=== PATIENT | male | born 1935 | race Caucasian/White ===

== ENCOUNTER 2017-12-22 10:02 | Inpatient (IN) | payer MEDICARE ==
[2017-12-22 10:14] VITALS: BMI 27.3
--- NOTE | 2017-12-22 10:46 | C.PDOC ---
History Of Present Illness 82 yo male, hx of htn, hld, presents with leg swelling, worse on left. no fevers , trauma, cp, sob, abd pain. Time Seen by Provider: 12/22/17 10:31 Chief Complaint (Nursing): Lower Extremity Problem/Injury Past Medical History Reviewed: Historical Data, Nursing Documentation, Vital Signs Vital Signs: Last Vital Signs Temp 97.2 F L 12/23/17 15:00 Pulse 76 12/23/17 15:00 Resp 20 12/23/17 15:00 BP 136/68 12/23/17 15:00 Pulse Ox 100 12/23/17 15:00 - Medical History PMH: HTN, Hypercholesterolemia Family History: States: Unknown Family Hx - Social History Hx Alcohol Use: No Hx Substance Use: No Review Of Systems Musculoskeletal: Positive for: Other (leg swelling) Physical Exam - Physical Exam Appears: Well, No Acute Distress Skin: Normal Color, Warm, Dry Eye(s): bilateral: Normal Inspection, PERRL, EOMI Nose: Normal Throat: Normal Neck: Normal Cardiovascular: Rhythm Regular Respiratory: Normal Breath Sounds Gastrointestinal/Abdominal: Normal Exam Back: Normal Inspection Extremity: Normal ROM, Swelling (l> r swelling) ED Course And Treatment - Laboratory Results Result Diagrams: 12/23/17 07:10 12/23/17 07:10 O2 Sat by Pulse Oximetry: 100 Medical Decision Making Medical Decision Making: ro renal faiure, chf, dvt. noted labs, new onset renal failure with elevated bnp. accepted by dr bird. Disposition - Disposition Disposition: HOSPITALIZED Disposition Time: 11:00 Condition: STABLE - Clinical Impression Clinical Impression: Renal failure, CHF (congestive heart failure) Decision To Admit - Pt Status Changed To: Hospital Disposition Of: Inpatient - Admit Certification Admit to Inpatient:: After my assessment, the patient will require hospitalization for at least two midnights. This is because of the severity of symptoms shown, intensity of services needed, and/or the medical risk in this patient being treated as an outpatient. - InPatient: Physician Admission Certification: I certify that this patient requires 2 or more midnights of care for the following reason:: chf acute renal fialure - . Bed Request Type: Telemetry Admitting Physician: Mick Bird Patient Diagnosis: Renal failure, CHF (congestive heart failure)
[2017-12-22 11:07] LABS: BASO # 0.1 K/uL (0.0-0.2); BASO % 1.1 % (0.0-2.0); EOS # 0.8 K/uL (0.0-0.7); HEMOGLOBIN 10.4 g/dL (12.0-18.0); LYMPH % 29.1 % (20.0-40.0); MEAN CORPUSCULAR HEMOGLOBIN 32.6 pg (27.0-31.0); MEAN CORPUSCULAR HGB CONC 35.8 g/dL (33.0-37.0); MEAN PLATELET VOLUME 7.3 fL (7.2-11.7); MONO # 0.5 K/uL (0.0-0.8); MONO % 7.1 % (0.0-10.0); NEUT # 3.6 K/uL (1.8-7.0); NEUT % 51.7 % (50.0-75.0); RBC 3.2 Mil/uL (4.40-5.90); RED CELL DISTRIBUTION WIDTH 13.4 % (11.5-14.5)
--- NOTE | 2017-12-22 11:13 | RAD ---
PROCEDURE: CHEST RADIOGRAPH, 1 VIEW HISTORY: chest pain COMPARISON: Chest radiograph dated 01/24/2013. FINDINGS: LUNGS: Stable chronic prominence of the bilateral interstitial markings. No focal consolidation. PLEURA: Stable elevation of the left hemidiaphragm No pneumothorax or pleural fluid seen. CARDIOVASCULAR: Atherosclerotic aortic calcifications. Cardiomediastinal silhouette stably enlarged. OSSEOUS STRUCTURES: Right supraspinatus calcific tendonitis. Unchanged. VISUALIZED UPPER ABDOMEN: Normal. OTHER FINDINGS: None. IMPRESSION: No active disease.
[2017-12-22 11:16] LABS: INR 1.1; PROTHROMBIN TIME 12.3 SECONDS (9.7-12.2)
[2017-12-22 11:47] LABS: ALB/GLOB RATIO 0.8 (1.0-2.1); ALBUMIN 3.6 g/dL (3.5-5.0); ALT/SGPT < 6 U/L (21-72); AST/SGOT 23 U/L (17-59); B-TYPE NATRIURETIC PEPTIDE 4490 pg/mL (0-900); BLOOD UREA NITROGEN 50 mg/dL (9-20); CALCIUM 8.7 mg/dl (8.6-10.4); GFR AFRICAN-AMERICAN 15; GFR NON-AFRICAN AMERICAN 13
--- NOTE | 2017-12-22 12:07 | VASCLAB ---
PROCEDURE: Lower Extremity Venous Duplex Exam. HISTORY: Pain / Swelling PRIORS: None. TECHNIQUE: Bilateral common femoral, femoral, popliteal and posterior tibial, peroneal and great saphenous veins were evaluated. Flow was assessed with color Doppler, compressibility, assessment of phasic flow and augmentation response. Report prepared by NURA Cash FINDINGS: RIGHT: 1. Common Femoral Vein: 1.1. Compressibility - Fully compressible: Thrombus - None : Flow - Pulsatile: Augmentation -Normal: Reflux - None. 2. Femoral Vein: 2.1. Compressibility - Fully compressible: Thrombus - None : Flow - PulsatileAugmentation -Normal: Reflux - None. 3. Popliteal Vein: 3.1. Compressibility - Fully compressible: Thrombus - None : Flow - PulsatileAugmentation -Normal: Reflux - None. 4. Posterior Tibial Vein: 4.1. Compressibility - Fully compressible: Thrombus - None: Flow - Augmentation -Normal: Reflux - None. 5. Peroneal Vein: 5.1. Compressibility - Fully compressible: Thrombus - None: Flow -Augmentation -Normal: Reflux - None. 6. Great Saphenous Vein: 6.1. Compressibility - Fully compressible: Thrombus - None: Flow - Pulsatile: Augmentation - Normal: Reflux - None. LEFT: 1. Common Femoral Vein: 1.1. Compressibility - Fully compressible: Thrombus - None: Flow - PulsatileAugmentation -Normal: Reflux - None. 2. Femoral Vein: 2.1. Compressibility - Fully compressible: Thrombus - None: Flow - PulsatilePhasic: Augmentation -Normal: Reflux - None. 3. Popliteal Vein: 3.1. Compressibility - Fully compressible: Thrombus - None : Flow - PulsatileAugmentation -Normal: Reflux - None. 4. Posterior Tibial Vein: 4.1. Compressibility - Fully compressible: Thrombus - None: Flow - Augmentation -Normal: Reflux - None. 5. Peroneal Vein: 5.1. Compressibility - Fully compressible: Thrombus - None: Flow - : Augmentation -Normal: Reflux - None. 6. Great Saphenous Vein: 6.1. Compressibility - Fully compressible: Thrombus - None: Flow - Pulsatile: Augmentation - Normal: Reflux - None. OTHER FINDINGS: Right: None significant. Left: None significant. IMPRESSION: Right: No evidence of deep or superficial vein thrombosis of the right lower extremity. Left: No evidence of deep or superficial vein thrombosis of the left lower extremity. Pulsatile venous flow noted bilaterally.
--- NOTE | 2017-12-22 12:41 | CP.PCM.HP ---
<Erlinda Strickland - Last Filed: 12/22/17 17:02> History of Present Illness - History of Present Illness History of Present Illness: CC: lower extremity swelling 82 M with PMHX of HTN, HLD, CKD presents to the ED for bilateral lower extremity swelling. PT is a poor historian because he is forgetful. Pt walked from his home after family suggested he see a doctor for his leg swelling. Pt states that the Lower Extremity Swelling started about 1 week ago. The swelling is generalized from below the knee to toes. Pt states that the left lower extremity is worse than the right. He states that there is no associated pain in the extremities. Pt last saw his PMD this past November and it was found that his Creatinine was elevated. He has a first time appointment with a visual educator next Sunday 12/31. He denies fever, chills, DONNELLY, chest pain, palpitations, SOB, cough, abdominal pain, nausea, vomiting, diarrhea, and leg pain. Spoke to niece on the phone (Niece: Trudy [phone]), who provided additional information. Niece said that her Uncle is very forgetful for the past year, but that family members call him to make sure he takes his meds. Besides the lower extremity edema, niece says he has had no other complaints and has not been sick recently. Code Status: DNI health care proxy: Tania Mccord ([phone]) Primary Care Doctor: Dr. Nuno PMHX: HTN, HLD, CKD PSH: Cervical Spine Surgery 1999 with [employer]? FAMILY HX: Mother , no known significant past medical history; Father , no known significant past medical history ALLERGIES: NKDA MEDICATIONS: Norvasc 5mg PO QD, Simvastatin 10mg PO QD SOCIAL: Denies tobacco, ETOH, and illicit drug use, lives in a senior home, refuses to have a visiting nurse, completes ADLs without help Present on Admission - Present on Admission Any Indicators Present on Admission: No History of DVT/PE: No History of Uncontrolled Diabetes: No Urinary Catheter: No Decubitus Ulcer Present: No Review of Systems - Constitutional Constitutional: absent: Anorexia, Chills, Fever - EENT Eyes: absent: Blurred Vision, Change in Vision - Cardiovascular Cardiovascular: Leg Edema, Pedal Edema. absent: Chest Pain, Dyspnea, Orthopnea , Palpitations, Paroxysmal Nocturnal Dyspnea - Respiratory Respiratory: absent: Cough, Dyspnea, Dyspnea on Exertion - Gastrointestinal Gastrointestinal: absent: Abdominal Pain, Constipation, Diarrhea, Nausea, Vomiting - Genitourinary Genitourinary: absent: Difficulty Urinating, Dysuria Additional comments: voiding small amounts, no increase in frequency - Musculoskeletal Musculoskeletal: absent: Myalgias, Numbness, Tingling - Integumentary Integumentary: absent: Rash - Neurological Neurological: absent: Dizziness - Psychiatric Psychiatric: Memory Loss - Endocrine Endocrine: absent: Fatigue, Palpitations - Hematologic/Lymphatic Hematologic: absent: Easy Bleeding, Easy Bruising Past Patient History - Past Social History Smoking Status: Never Smoked - CARDIAC Hx Hypercholesterolemia: Yes Hx Hypertension: Yes - RENAL Other/Comment: PER NIECE "KIDNEY DISEASE" - PSYCHIATRIC Hx Substance Use: No - SURGICAL HISTORY Hx Surgeries: Yes - ANESTHESIA Hx Anesthesia: Yes Hx Anesthesia Reactions: No Meds Allergies/Adverse Reactions: Allergies Allergy/AdvReac Type Severity Reaction Status Date / Time No Known Allergies Allergy Verified 12/22/17 10:13 Physical Exam - Constitutional Appears: Non-toxic, No Acute Distress - Head Exam Head Exam: ATRAUMATIC, NORMAL INSPECTION, NORMOCEPHALIC - Eye Exam Eye Exam: EOMI, Normal appearance Pupil Exam: NORMAL ACCOMODATION - ENT Exam ENT Exam: Mucous Membranes Moist - Respiratory Exam Respiratory Exam: Clear to Auscultation Bilateral, NORMAL BREATHING PATTERN. absent: Rales, Rhonchi, Wheezes, Respiratory Distress - Cardiovascular Exam Cardiovascular Exam: REGULAR RHYTHM, RRR, +S1, +S2 - GI/Abdominal Exam GI & Abdominal Exam: Normal Bowel Sounds, Soft. absent: Tenderness - Extremities Exam Extremities exam: Positive for: normal capillary refill, pedal edema, pedal pulses present. Negative for: tenderness Additional comments: pitting edema b/l L wore than R - Back Exam Back exam: NORMAL INSPECTION - Neurological Exam Neurological exam: Alert, CN II-XII Intact, Oriented x3 - Psychiatric Exam Psychiatric exam: Normal Affect, Normal Mood - Skin Skin Exam: Intact, Normal Color, Warm Additional comments: LE edema Results - Vital Signs Recent Vital Signs: Last Vital Signs Temp 97.7 F 12/22/17 10:16 Pulse 87 12/22/17 10:16 Resp 20 12/22/17 10:16 BP 152/72 H 12/22/17 12:14 Pulse Ox 100 12/22/17 10:46 - Labs Result Diagrams: 12/22/17 11:04 12/22/17 11:04 Labs: Laboratory Results - last 24 hr 12/22/17 12/22/17 12/22/17 11:04 11:04 11:04 WBC 7.0 RBC 3.20 L Hgb 10.4 L D Hct 29.1 L MCV 91.0 D MCH 32.6 H MCHC 35.8 RDW 13.4 Plt Count 247 MPV 7.3 Neut % (Auto) 51.7 Lymph % (Auto) 29.1 Cassia % (Auto) 7.1 Eos % (Auto) 11.0 H Baso % (Auto) 1.1 Neut # (Auto) 3.6 Lymph # (Auto) 2.0 Cassia # (Auto) 0.5 Eos # (Auto) 0.8 H Baso # (Auto) 0.1 PT 12.3 H INR 1.1 APTT 36 H Sodium 140 Potassium 3.5 L Chloride 99 Carbon Dioxide 26 Anion Gap 19 BUN 50 H Creatinine 4.5 H Est GFR ( Amer) 15 Est GFR (Non-Af Amer) 13 Random Glucose 123 H Calcium 8.7 Total Bilirubin 0.6 AST 23 ALT < 6 L D Alkaline Phosphatase 97 Troponin I 0.0690 NT-Pro-B Natriuret Pep 4490 H Total Protein 7.9 Albumin 3.6 Globulin 4.3 H Albumin/Globulin Ratio 0.8 L Assessment & Plan - Assessment and Plan (Free Text) Assessment: BUCKY on CKD creatinine elevated in November at pmd's office (Dr. Caceres) Dr. Morin consulted, help appreciated renal u/s ordered CT abd/pelvis without contrast ordered f/u UA, urine culture, urine osmolality, protein, sodium LE Edema probably 2/2 ckd Cxray: no active disease LE venous dopplers negative pulses 2+ HTN increase home med Norvasc to 10mg po daily start Lopressor 12.5mg po bid f/u TSH, free T4 HLD continue home med Crestor 2.5 po HS f/u lipid panel Prophylaxis DVT: Heparin 5000 u sc q8h Pepcid 20mg po daily <Walter Alonso H - Last Filed: 12/22/17 17:20> Results - Vital Signs Recent Vital Signs: Last Vital Signs Temp 98.7 F 12/22/17 15:07 Pulse 92 H 12/22/17 16:44 Resp 16 12/22/17 15:07 BP 168/83 H 12/22/17 15:07 Pulse Ox 100 12/22/17 15:13 - Labs Result Diagrams: 12/22/17 11:04 12/22/17 11:04 Labs: Laboratory Results - last 24 hr 12/22/17 12/22/17 12/22/17 11:04 11:04 11:04 WBC 7.0 RBC 3.20 L Hgb 10.4 L D Hct 29.1 L MCV 91.0 D MCH 32.6 H MCHC 35.8 RDW 13.4 Plt Count 247 MPV 7.3 Neut % (Auto) 51.7 Lymph % (Auto) 29.1 Cassia % (Auto) 7.1 Eos % (Auto) 11.0 H Baso % (Auto) 1.1 Neut # (Auto) 3.6 Lymph # (Auto) 2.0 Cassia # (Auto) 0.5 Eos # (Auto) 0.8 H Baso # (Auto) 0.1 PT 12.3 H INR 1.1 APTT 36 H Sodium 140 Potassium 3.5 L Chloride 99 Carbon Dioxide 26 Anion Gap 19 BUN 50 H Creatinine 4.5 H Est GFR ( Amer) 15 Est GFR (Non-Af Amer) 13 Random Glucose 123 H Calcium 8.7 Total Bilirubin 0.6 AST 23 ALT < 6 L D Alkaline Phosphatase 97 Troponin I 0.0690 NT-Pro-B Natriuret Pep 4490 H Total Protein 7.9 Albumin 3.6 Globulin 4.3 H Albumin/Globulin Ratio 0.8 L Urine Color Urine Clarity Urine pH Ur Specific [place] Urine Protein Urine Glucose (UA) Urine Ketones Urine Blood Urine Nitrate Urine Bilirubin Urine Urobilinogen Ur Leukocyte Esterase Urine WBC (Auto) Urine RBC (Auto) Ur Squamous Epith Cells Urine Osmolality U Random Total Protein Ur Random Sodium 12/22/17 12/22/17 14:36 14:36 WBC RBC Hgb Hct MCV MCH MCHC RDW Plt Count MPV Neut % (Auto) Lymph % (Auto) Cassia % (Auto) Eos % (Auto) Baso % (Auto) Neut # (Auto) Lymph # (Auto) Cassia # (Auto) Eos # (Auto) Baso # (Auto) PT INR APTT Sodium Potassium Chloride Carbon Dioxide Anion Gap BUN Creatinine Est GFR ( Amer) Est GFR (Non-Af Amer) Random Glucose Calcium Total Bilirubin AST ALT Alkaline Phosphatase Troponin I NT-Pro-B Natriuret Pep Total Protein Albumin Globulin Albumin/Globulin Ratio Urine Color Straw Urine Clarity Clear Urine pH 7.0 Ur Specific [place] 1.008 Urine Protein 2+ H Urine Glucose (UA) 1+ H Urine Ketones Negative Urine Blood 1+ H Urine Nitrate Negative Urine Bilirubin Negative Urine Urobilinogen Normal Ur Leukocyte Esterase Neg Urine WBC (Auto) 1 Urine RBC (Auto) 2 Ur Squamous Epith Cells < 1 Urine Osmolality 301 U Random Total Protein 368.0 H Ur Random Sodium 101 Attending/Attestation - Attestation I have personally seen and examined this patient.: Yes I have fully participated in the care of the patient.: Yes I have reviewed all pertinent clinical information: Yes Notes (Text): 12/22/17 17:20 This is a 82-year-old male who came in she bilateral lower extremity swelling. He has been noted to have elevated creatinine. According to the family members. His primary care physicians have wanted him to follow-up with nephrology was but so far he has not been able to do so. He explains to us that he's been producing less urine than previous. His lab work showed a creatinine of 4.5. His potassium and bicarbonate remained stable for the time being. He denies having any pain or discomfort at this time we saw him, probably this CKD is from long-standing hypertension nevertheless work and get CT and also U/ S and urine studies. The patient would need a nephrology evaluation as well Thank you very much, Walter Alonso
[2017-12-22 14:44] LABS: SQUAMOUS EPITHIAL < 1 /hpf (0-5); URINE BILIRUBIN NEGATIVE (NEGATIVE); URINE BLOOD 1+ (NEGATIVE); URINE CLARITY Clear (Clear); URINE COLOR Straw (YELLOW); URINE GLUCOSE (UA) 1+ mg/dL (Normal); URINE LEUKOCYTE ESTERASE NEG Leu/uL (Negative); URINE PROTEIN 2+ mg/dL (NEGATIVE); URINE UROBILINOGEN NORMAL mg/dL (0.2-1.0)
--- NOTE | 2017-12-22 14:59 | US ---
Renal ultrasound History: Acute renal insufficiency. Comparison: None available. Technique: Real-time sonography was performed through the kidneys. Findings: Right kidney: 7.7 x 4.2 x 5.1 centimeters. Increased echogenicity of the renal parenchymal cortex suggestive for medical renal disease. Midpole hypoechoic cyst measuring 2.6 x 2.0 x 2.1 centimeters. No calculi or hydronephrosis. Left kidney: 6.1 x 3.4 x 3.4 centimeters. Increased echogenicity of the renal parenchymal cortex suggestive for medical renal disease. Upper pole hypoechoic cyst measuring 1.0 x 0.8 x 1.0 centimeters. No calculi or hydronephrosis. Visualized aorta is preserved. Visualized urinary bladder is preserved. Impression: 1. Increased echogenicity of the bilateral renal parenchymal cortices suggestive for medical renal disease. 2. Diminutive appearance of the bilateral kidneys which may represent underlying atrophy. Clinical correlation. 3. Bilateral renal cysts.
--- NOTE | 2017-12-22 16:26 | CT ---
PROCEDURE: CT Abdomen and Pelvis without intravenous contrast HISTORY: BUCKY on CKD COMPARISON: None. TECHNIQUE: Contiguous images were obtained from the domes of the diaphragms to the upper thighs without the administration of intravenous contrast. Oral contrast was not administered. Radiation dose: Total exam DLP = 224.7 mGy-cm. This CT exam was performed using one or more of the following dose reduction techniques: Automated exposure control, adjustment of the mA and/or kV according to patient size, and/or use of iterative reconstruction technique. FINDINGS: LOWER THORAX: Left lower lobe atelectasis/scarring. Cardiomegaly. Coronary arterial and valvular calcifications. LIVER: Unremarkable. No gross lesion or ductal dilatation. GALLBLADDER AND BILE DUCTS: Unremarkable. PANCREAS: Unremarkable. No gross lesion or ductal dilatation. SPLEEN: Unremarkable. ADRENALS: Unremarkable. No mass. KIDNEYS AND URETERS: 2.1 cm right interpolar cyst. Atrophic left kidney. 0.9 cm left upper pole cyst. No hydronephrosis. No solid mass. VASCULATURE: Unremarkable. No aortic aneurysm. BOWEL: Colonic diverticulosis. Interposition of colon anterior to the liver. No obstruction. No gross mural thickening. APPENDIX: Unremarkable. Normal appendix. PERITONEUM: Prior left inguinal hernia repair. No free fluid. No free air. LYMPH NODES: Unremarkable. No enlarged lymph nodes. BLADDER: Unremarkable. REPRODUCTIVE: Prostatomegaly. BONES: No acute fracture. OTHER FINDINGS: Right gluteal soft tissue calcifications. IMPRESSION: No urolithiasis or evidence of recently passed genitourinary calculus. No acute abdominal pelvic pathology. Chronic atrophy of the left kidney. Bilateral renal cysts. Prostatomegaly. Additional findings as above.
[2017-12-22] MEDS: Rosuvastatin Calcium 2.5 mg Tab PO SCH (21:07)
[2017-12-23 07:22] LABS: BASO # 0.1 K/uL (0.0-0.2); BASO % 1.1 % (0.0-2.0); EOS # 1.5 K/uL (0.0-0.7); EOS % 19.1 % (0.0-4.0); HEMOGLOBIN 8.7 g/dL (12.0-18.0); LYMPH # 3.4 K/uL (1.0-4.3); LYMPH % 41.8 % (20.0-40.0); MEAN CELL VOLUME 91.1 fL (80.0-94.0); MEAN CORPUSCULAR HEMOGLOBIN 32.8 pg (27.0-31.0); MONO # 0.5 K/uL (0.0-0.8); MONO % 6.1 % (0.0-10.0); NEUT # 2.6 K/uL (1.8-7.0); NEUT % 31.9 % (50.0-75.0); RBC 2.65 Mil/uL (4.40-5.90); RED CELL DISTRIBUTION WIDTH 13.3 % (11.5-14.5)
[2017-12-23 07:40] LABS: ALB/GLOB RATIO 0.8 (1.0-2.1); ALBUMIN 2.9 g/dL (3.5-5.0); CALCIUM 8.4 mg/dl (8.6-10.4)
--- NOTE | 2017-12-23 09:04 | CP.PCM.CON ---
History of Present Illness - History of Present Illness History of Present Illness: Pt is a poor historian. Most history from chart and primary team. 82 M with PMHX of HTN, HLD, CKD presents to the ED for bilateral lower extremity swelling. PT is a poor historian because he is forgetful. Pt walked from his home after family suggested he see a doctor for his leg swelling. Pt states that the Lower Extremity Swelling started about 1 week ago. The swelling is generalized from below the knee to toes. Pt states that the left lower extremity is worse than the right. He states that there is no associated pain in the extremities. Pt last saw his PMD this past November and it was found that his Creatinine was elevated. He has a first time appointment with a contract post office clerk next Sunday 12/31. He denies fever, chills, DONNELLY, chest pain, palpitations, SOB, cough, abdominal pain, nausea, vomiting, diarrhea, and leg pain. creatinine 5.1mg/dl today, pt making adequate urine. PMHX: HTN, HLD, CKD PSH: Cervical Spine Surgery 1999 with [employer]? FAMILY HX: Mother , no known significant past medical history; Father , no known significant past medical history ALLERGIES: NKDA MEDICATIONS: Norvasc 5mg PO QD, Simvastatin 10mg PO QD SOCIAL: Denies tobacco, ETOH, and illicit drug use, lives in a senior home, refuses to have a visiting nurse, completes ADLs without help Review of Systems - Constitutional Constitutional: As Per HPI - EENT Eyes: As Per HPI Nose/Mouth/Throat: As Per HPI - Cardiovascular Cardiovascular: As Per HPI - Respiratory Respiratory: As Per HPI - Gastrointestinal Gastrointestinal: As Per HPI - Genitourinary Genitourinary: As Per HPI - Musculoskeletal Musculoskeletal: As Per HPI - Neurological Neurological: As Per HPI - Endocrine Endocrine: As Per HPI - Hematologic/Lymphatic Hematologic: As Per HPI Past Patient History - Past Medical History & Family History Past Medical History?: Yes - Past Social History Smoking Status: Never Smoked - CARDIAC Hx Hypercholesterolemia: Yes Hx Hypertension: Yes - PULMONARY Hx Respiratory Disorders: No - NEUROLOGICAL Hx Neurological Disorder: No - HEENT Hx HEENT Problems: No - RENAL Other/Comment: PER NIECE "KIDNEY DISEASE" - ENDOCRINE/METABOLIC Hx Endocrine Disorders: No - HEMATOLOGICAL/ONCOLOGICAL Hx Blood Disorders: No - INTEGUMENTARY Hx Dermatological Problems: No - MUSCULOSKELETAL/RHEUMATOLOGICAL Hx Musculoskeletal Disorders: No Hx Falls: No - GASTROINTESTINAL Hx Gastrointestinal Disorders: No - GENITOURINARY/GYNECOLOGICAL Hx Genitourinary Disorders: No - PSYCHIATRIC Hx Substance Use: No - SURGICAL HISTORY Hx Surgeries: Yes - ANESTHESIA Hx Anesthesia: Yes Hx Anesthesia Reactions: No Meds Allergies/Adverse Reactions: Allergies Allergy/AdvReac Type Severity Reaction Status Date / Time No Known Allergies Allergy Verified 12/22/17 10:13 - Medications Medications: Current Medications Amlodipine Besylate (Norvasc) 10 mg PO DAILY [facility] Famotidine (Pepcid) 20 mg PO DAILY [facility] Last Admin: 12/22/17 15:07 Dose: 20 mg Heparin Sodium (Porcine) (Heparin) 5,000 units SC Q8 [facility] Last Admin: 12/23/17 05:35 Dose: 5,000 units Metoprolol Tartrate (Lopressor) 12.5 mg PO BID [facility] Last Admin: 12/22/17 18:25 Dose: 12.5 mg Rosuvastatin Calcium (Crestor) 2.5 mg PO HS [facility] Last Admin: 12/22/17 21:07 Dose: 2.5 mg Physical Exam - Constitutional Appears: Non-toxic, No Acute Distress - Head Exam Head Exam: NORMAL INSPECTION, NORMOCEPHALIC - Eye Exam Eye Exam: Normal appearance Pupil Exam: PERRL - ENT Exam ENT Exam: Mucous Membranes Moist, Normal Exam - Neck Exam Neck exam: Positive for: Normal Inspection - Respiratory Exam Respiratory Exam: Clear to Auscultation Bilateral, NORMAL BREATHING PATTERN - Cardiovascular Exam Cardiovascular Exam: REGULAR RHYTHM, RRR - GI/Abdominal Exam GI & Abdominal Exam: Normal Bowel Sounds, Soft - Extremities Exam Extremities exam: Positive for: normal inspection (LLE edema 2+) - Back Exam Back exam: NORMAL INSPECTION - Neurological Exam Neurological exam: Alert, Oriented x3 - Psychiatric Exam Psychiatric exam: Normal Affect, Normal Mood - Skin Skin Exam: Intact, Warm Results - Vital Signs Recent Vital Signs: Last Vital Signs Temp 98.0 F 12/23/17 08:14 Pulse 61 12/23/17 08:42 Resp 20 12/23/17 08:14 BP 114/60 12/23/17 08:14 Pulse Ox 94 L 12/23/17 08:14 - Labs Result Diagrams: 12/23/17 07:10 12/23/17 07:10 Labs: Laboratory Results - last 24 hr 12/22/17 12/22/17 12/22/17 11:04 11:04 11:04 WBC 7.0 RBC 3.20 L Hgb 10.4 L D Hct 29.1 L MCV 91.0 D MCH 32.6 H MCHC 35.8 RDW 13.4 Plt Count 247 MPV 7.3 Neut % (Auto) 51.7 Lymph % (Auto) 29.1 [place] % (Auto) 7.1 Eos % (Auto) 11.0 H Baso % (Auto) 1.1 Neut # (Auto) 3.6 Lymph # (Auto) 2.0 [place] # (Auto) 0.5 Eos # (Auto) 0.8 H Baso # (Auto) 0.1 PT 12.3 H INR 1.1 APTT 36 H Sodium 140 Potassium 3.5 L Chloride 99 Carbon Dioxide 26 Anion Gap 19 BUN 50 H Creatinine 4.5 H Est GFR ( Amer) 15 Est GFR (Non-Af Amer) 13 Random Glucose 123 H Hemoglobin A1c Calcium 8.7 Phosphorus Magnesium Total Bilirubin 0.6 AST 23 ALT < 6 L D Alkaline Phosphatase 97 Troponin I 0.0690 NT-Pro-B Natriuret Pep 4490 H Total Protein 7.9 Albumin 3.6 Globulin 4.3 H Albumin/Globulin Ratio 0.8 L Triglycerides Cholesterol LDL Cholesterol Direct HDL Cholesterol Free T4 TSH 3rd Generation Urine Color Urine Clarity Urine pH Ur Specific [place] Urine Protein Urine Glucose (UA) Urine Ketones Urine Blood Urine Nitrate Urine Bilirubin Urine Urobilinogen Ur Leukocyte Esterase Urine WBC (Auto) Urine RBC (Auto) Ur Squamous Epith Cells Urine Osmolality U Random Total Protein Ur Random Sodium 12/22/17 12/22/17 12/23/17 14:36 14:36 07:10 WBC 8.0 RBC 2.65 L Hgb 8.7 L Hct 24.2 L MCV 91.1 MCH 32.8 H MCHC 36.0 RDW 13.3 Plt Count 203 MPV 8.0 Neut % (Auto) 31.9 L Lymph % (Auto) 41.8 H [place] % (Auto) 6.1 Eos % (Auto) 19.1 H Baso % (Auto) 1.1 Neut # (Auto) 2.6 Lymph # (Auto) 3.4 [place] # (Auto) 0.5 Eos # (Auto) 1.5 H Baso # (Auto) 0.1 PT INR APTT Sodium Potassium Chloride Carbon Dioxide Anion Gap BUN Creatinine Est GFR ( Amer) Est GFR (Non-Af Amer) Random Glucose Hemoglobin A1c Calcium Phosphorus Magnesium Total Bilirubin AST ALT Alkaline Phosphatase Troponin I NT-Pro-B Natriuret Pep Total Protein Albumin Globulin Albumin/Globulin Ratio Triglycerides Cholesterol LDL Cholesterol Direct HDL Cholesterol Free T4 TSH 3rd Generation Urine Color Straw Urine Clarity Clear Urine pH 7.0 Ur Specific [place] 1.008 Urine Protein 2+ H Urine Glucose (UA) 1+ H Urine Ketones Negative Urine Blood 1+ H Urine Nitrate Negative Urine Bilirubin Negative Urine Urobilinogen Normal Ur Leukocyte Esterase Neg Urine WBC (Auto) 1 Urine RBC (Auto) 2 Ur Squamous Epith Cells < 1 Urine Osmolality 301 U Random Total Protein 368.0 H Ur Random Sodium 101 12/23/17 12/23/17 12/23/17 07:10 07:10 07:10 WBC RBC Hgb Hct MCV MCH MCHC RDW Plt Count MPV Neut % (Auto) Lymph % (Auto) [place] % (Auto) Eos % (Auto) Baso % (Auto) Neut # (Auto) Lymph # (Auto) [place] # (Auto) Eos # (Auto) Baso # (Auto) PT INR APTT Sodium 138 Potassium 3.4 L Chloride 100 Carbon Dioxide 26 Anion Gap 16 BUN 54 H Creatinine 5.1 H Est GFR ( Amer) 13 Est GFR (Non-Af Amer) 11 Random Glucose 80 Hemoglobin A1c 6.3 Calcium 8.4 L Phosphorus 4.6 H Magnesium 2.2 Total Bilirubin 0.5 AST 20 ALT 8 L D Alkaline Phosphatase 79 Troponin I NT-Pro-B Natriuret Pep Total Protein 6.6 Albumin 2.9 L Globulin 3.6 Albumin/Globulin Ratio 0.8 L Triglycerides 134 Cholesterol 119 LDL Cholesterol Direct 57 HDL Cholesterol 27 L Free T4 1.24 TSH 3rd Generation 0.28 L Urine Color Urine Clarity Urine pH Ur Specific [place] Urine Protein Urine Glucose (UA) Urine Ketones Urine Blood Urine Nitrate Urine Bilirubin Urine Urobilinogen Ur Leukocyte Esterase Urine WBC (Auto) Urine RBC (Auto) Ur Squamous Epith Cells Urine Osmolality U Random Total Protein Ur Random Sodium Assessment & Plan (1) Chronic kidney disease Status: Acute (2) Anemia Status: Acute (3) Hypertension Status: Acute (4) Edema Status: Acute (5) CHF (congestive heart failure) Status: Acute - Assessment and Plan (Free Text) Assessment: Likely advanced ckd based on renal imaging. possibly component of cardiorenal syndrome. echo pending check hepatitis panel, hiv, spep quantify proteinuria creatinine clearance check iron stores, consider sumaya check pth phos may need HOSPICE BEREAVEMENT COORDINATOR. Attempted calling niece over phone, no answer. discussed w/ primary team
--- NOTE | 2017-12-23 10:28 | CP.PCM.PN ---
<JadielgladisErlinda Oleg - Last Filed: 12/23/17 13:27> Subjective - Date & Time of Evaluation Date of Evaluation: 12/23/17 Time of Evaluation: 07:00 - Subjective Subjective: PGY1- Medicine Note Patient seen and examined at bedside and in no acute distress. Patient says his legs are still swollen. Patient denies any headache, shortness of breath, chest pain, palpitations, nausea, vomiting, constipation, or diarrhea. Objective - Vital Signs/Intake and Output Vital Signs (last 24 hours): Temp Pulse Resp BP Pulse Ox 98.0 F 61 20 114/60 94 L 12/23/17 08:14 12/23/17 08:42 12/23/17 08:14 12/23/17 08:14 12/23/17 08:14 - Medications Medications: Current Medications Amlodipine Besylate (Norvasc) 10 mg PO DAILY [facility] Famotidine (Pepcid) 20 mg PO DAILY [facility] Last Admin: 12/22/17 15:07 Dose: 20 mg Heparin Sodium (Porcine) (Heparin) 5,000 units SC Q8 [facility] Last Admin: 12/23/17 05:35 Dose: 5,000 units Metoprolol Tartrate (Lopressor) 12.5 mg PO BID [facility] Last Admin: 12/22/17 18:25 Dose: 12.5 mg Rosuvastatin Calcium (Crestor) 2.5 mg PO HS [facility] Last Admin: 12/22/17 21:07 Dose: 2.5 mg - Labs Labs: 12/23/17 07:10 12/23/17 07:10 PT 12.3 SECONDS (9.7-12.2) H 12/22/17 11:04 INR 1.1 12/22/17 11:04 APTT 36 SECONDS (21-34) H 12/22/17 11:04 - Additional Findings Additional findings: - Constitutional Appears: Non-toxic, No Acute Distress - Head Exam Head Exam: ATRAUMATIC, NORMAL INSPECTION, NORMOCEPHALIC - Eye Exam Eye Exam: EOMI, Normal appearance Pupil Exam: NORMAL ACCOMODATION - ENT Exam ENT Exam: Mucous Membranes Moist - Respiratory Exam Respiratory Exam: Clear to Auscultation Bilateral, NORMAL BREATHING PATTERN. absent: Rales, Rhonchi, Wheezes, Respiratory Distress - Cardiovascular Exam Cardiovascular Exam: REGULAR RHYTHM, RRR, +S1, +S2 - GI/Abdominal Exam GI & Abdominal Exam: Normal Bowel Sounds, Soft. absent: Tenderness - Extremities Exam Extremities exam: Positive for: normal capillary refill, pedal edema, pedal pulses present. Negative for: tenderness Additional comments: pitting edema b/l L wore than R - Back Exam Back exam: NORMAL INSPECTION - Neurological Exam Neurological exam: Alert, CN II-XII Intact, Oriented x3 - Psychiatric Exam Psychiatric exam: Normal Affect, Normal Mood - Skin Skin Exam: Intact, Normal Color, Warm Additional comments: LE edema Assessment and Plan - Assessment and Plan (Free Text) Assessment: BUCKY on CKD creatinine elevated in November at pmd's office (Dr. Caceres) Dr. Morin consulted, help appreciated renal u/s: 1. increased echogenicity of the b/l renal parenchymal cortices suggestive for medical renal disease 2. diminutive appearance of the bilateral kidneys which may represent underlying atrophy. 3. bilateral renal cysts CT abd/pelvis without contrast: no urolithiasis or evidence of recently passed genitourinary calculus. No acute abdominal pelvic pathology. Chronic atrophy of the left kidney. b/l renal cysts. prostatomegaly. UA: 2+ protein, 1+ gluc, 1+ blood urine osm: 301, protein 368, sodium [address] Ruiz f/u: creatinine clearance, total protein, % iron sat, ferritin, hep panel, HIV, SPEP, PTH LE Edema probably 2/2 ckd Cxray: no active disease LE venous dopplers negative pulses 2+ HTN continue home med Norvasc to 5mg po daily Lopressor 12.5mg po bid TSH: .28, Free T4: 1.24 HLD continue home med Crestor 2.5 po HS lipid panel: triglycerides 134, cholesterol 119, LDL 57, HDL 27 Prophylaxis DVT: Heparin 5000 u sc q8h Pepcid 20mg po daily <CelestePeter H - Last Filed: 12/23/17 14:53> Objective - Vital Signs/Intake and Output Vital Signs (last 24 hours): Temp Pulse Resp BP Pulse Ox 98.0 F 61 20 114/60 94 L 12/23/17 08:14 12/23/17 08:42 12/23/17 08:14 12/23/17 08:14 12/23/17 08:14 - Medications Medications: Current Medications Amlodipine Besylate (Norvasc) 5 mg PO DAILY [facility] Famotidine (Pepcid) 20 mg PO DAILY [facility] Last Admin: 12/23/17 10:46 Dose: 20 mg Heparin Sodium (Porcine) (Heparin) 5,000 units SC Q8 [facility] Last Admin: 12/23/17 13:31 Dose: 5,000 units Metoprolol Tartrate (Lopressor) 12.5 mg PO BID [facility] Last Admin: 12/23/17 10:45 Dose: 12.5 mg Rosuvastatin Calcium (Crestor) 2.5 mg PO HS [facility] Last Admin: 12/22/17 21:07 Dose: 2.5 mg - Labs Labs: 12/23/17 07:10 12/23/17 07:10 PT 12.3 SECONDS (9.7-12.2) H 12/22/17 11:04 INR 1.1 12/22/17 11:04 APTT 36 SECONDS (21-34) H 12/22/17 11:04 Attending/Attestation - Attestation I have personally seen and examined this patient.: Yes I have fully participated in the care of the patient.: Yes I have reviewed all pertinent clinical information, including history, physical exam and plan: Yes Notes (Text): Medical attending: Patient was seen and examined by me, agree with the above note by the special forces medical sergeant. Patient was not in any acute distress when we saw him. He was able to walk in the room and into the hallway. A 24 hr urine collection is underway. The patient stated he was able to urinate fine when we saw him Spoke also with the patient's primary phyisician who exaplins that the most recent lab work on November 14 showed a creatine of 3.5 at that time thank you Walter Alonso
--- NOTE | 2017-12-23 14:33 | CARD ---
APPROVED REPORT EXAM: Two-dimensional and M-mode echocardiogram with Doppler and color Doppler. Other Information Quality : GoodRhythm : INDICATION Congestive Heart Failure RISK FACTORS Hypertension Hyperlipidemia 2D DIMENSIONS IVSd0.8 (0.7-1.1cm)LVDd4.5 (3.9-5.9cm) PWd0.8 (0.7-1.1cm)LVDs3.5 (2.5-4.0cm) FS (%) 23.1 %LVEF (%)55.0 (>50%) M-Mode DIMENSIONS RVDd1.30 (2.1-3.2cm)Left Atrium (MM)3.25 (2.5-4.0cm) IVSd0.93 (0.7-1.1cm)Aortic Root2.97 (2.2-3.7cm) LVDd4.72 (4.0-5.6cm)Aortic Cusp Exc.1.90 (1.5-2.0cm) PWd0.74 (0.7-1.1cm)FS (%) 33 % LVDs3.17 (2.0-3.8cm)LVEF (%)61 (>50%) Aortic Valve AI P 1/2 [id number] Mitral Valve MV E Xvewmpqf302.9cm/sMV A [place]45.7cm/sE/A ratio1.2 TDI E/Lateral E'0.0E/Medial E'0.0 Tricuspid Valve TR Peak [id number]/sTR Peak [id number] LEFT VENTRICLE The left ventricle is normal size. There is borderline concentric left ventricular hypertrophy. The left ventricular function is normal. The left ventricular ejection fraction is within the normal range. There is normal LV segmental wall motion. Transmitral Doppler flow pattern is Grade II-pseudonormal filling dynamics. RIGHT VENTRICLE The right ventricle is normal size. There is normal right ventricular wall thickness. The right ventricular systolic function is normal. ATRIA The left atrium size is normal. The right atrium size is normal. AORTIC VALVE The aortic valve is mildly thickened. There is mild aortic regurgitation. There is no aortic valvular stenosis. MITRAL VALVE The mitral valve is mildly thickened. There is no mitral valve stenosis. Mitral regurgitation is trace. TRICUSPID VALVE There is mild tricuspid regurgitation. There is mild pulmonary hypertension. GREAT VESSELS The aortic root is normal in size. The IVC collapses <50% with inspiration. <Conclusion> The left ventricle is normal size. There is borderline concentric left ventricular hypertrophy. The left ventricular function is normal. The left ventricular ejection fraction is within the normal range. There is normal LV segmental wall motion. Transmitral Doppler flow pattern is Grade II-pseudonormal filling dynamics. There is mild aortic regurgitation. There is mild tricuspid regurgitation. There is mild pulmonary hypertension.
--- NOTE | 2017-12-23 15:09 | CARD ---
APPROVED REPORT EKG Measurement Heart [id number] [place] [id number] <Conclusion> Normal sinus rhythm Prolonged QT Abnormal ECG
[2017-12-23] MEDS: Rosuvastatin Calcium 2.5 mg Tab PO SCH (21:43)
[2017-12-24 07:14] LABS: BASO # 0.1 K/uL (0.0-0.2); BASO % 0.9 % (0.0-2.0); EOS # 1.7 K/uL (0.0-0.7); EOS % 16.4 % (0.0-4.0); HEMOGLOBIN 9.6 g/dL (12.0-18.0); LYMPH # 3.4 K/uL (1.0-4.3); LYMPH % 33.6 % (20.0-40.0); MEAN CELL VOLUME 90.9 fL (80.0-94.0); MEAN CORPUSCULAR HGB CONC 35.3 g/dL (33.0-37.0); MONO # 0.7 K/uL (0.0-0.8); MONO % 6.4 % (0.0-10.0); NEUT # 4.4 K/uL (1.8-7.0); NEUT % 42.7 % (50.0-75.0); NRBC % 0.1 % (0.0-2.0); RBC 3.01 Mil/uL (4.40-5.90); RED CELL DISTRIBUTION WIDTH 13.2 % (11.5-14.5); WHITE BLOOD COUNT 10.2 K/uL (4.8-10.8)
[2017-12-24 07:21] LABS: % IRON SATURATION 22 (20-55)
[2017-12-24 07:39] LABS: ALB/GLOB RATIO 0.8 (1.0-2.1); ALBUMIN 3.1 g/dL (3.5-5.0); ALT/SGPT 12 U/L (21-72); AST/SGOT 22 U/L (17-59); BLOOD UREA NITROGEN 62 mg/dL (9-20); CALCIUM 8.9 mg/dl (8.6-10.4); GFR AFRICAN-AMERICAN 12; GFR NON-AFRICAN AMERICAN 10
[2017-12-24 07:51] LABS: HEPATITIS B SURFACE AG Negative (NEGATIVE)
[2017-12-24 07:52] LABS: HEPATITIS B SURFACE AG Negative (NEGATIVE)
[2017-12-24 07:54] LABS: HIV 1&2 ANTIBODY NEGATIVE (NEGATIVE)
[2017-12-24 07:58] LABS: HEPATITIS A IGM NEGATIVE (NEGATIVE); HEPATITIS B CORE AB NEGATIVE (NEGATIVE)
[2017-12-24 08:17] LABS: HEPATITIS C ANTIBODY REACTIVE (NEGATIVE)
--- NOTE | 2017-12-24 10:31 | CP.PCM.PN ---
<Marco AErlinda Oleg - Last Filed: 12/24/17 14:34> Subjective - Date & Time of Evaluation Date of Evaluation: 12/24/17 Time of Evaluation: 07:00 - Subjective Subjective: PGY1- Medicine Note Patient seen and examined at bedside and in no acute distress. Patient says his legs are still swollen. Patient denies any headache, shortness of breath, chest pain, palpitations, nausea, vomiting, constipation, or diarrhea. Patient explained importance of collecting his 24 hour urine and explained that he cannot urinate into the toilet or discard his urine. Objective - Vital Signs/Intake and Output Vital Signs (last 24 hours): Temp Pulse Resp BP Pulse Ox 97.8 F 71 20 145/56 L 94 L 12/24/17 08:39 12/24/17 08:39 12/24/17 08:39 12/24/17 08:39 12/24/17 08:39 - Medications Medications: Current Medications Amlodipine Besylate (Norvasc) 5 mg PO DAILY [facility] Last Admin: 12/24/17 09:44 Dose: 5 mg Famotidine (Pepcid) 20 mg PO DAILY [facility] Last Admin: 12/24/17 09:44 Dose: 20 mg Heparin Sodium (Porcine) (Heparin) 5,000 units SC Q8 [facility] Last Admin: 12/24/17 05:55 Dose: 5,000 units Metoprolol Tartrate (Lopressor) 12.5 mg PO BID [facility] Last Admin: 12/24/17 09:44 Dose: 12.5 mg Rosuvastatin Calcium (Crestor) 2.5 mg PO HS [facility] Last Admin: 12/23/17 21:43 Dose: 2.5 mg - Labs Labs: 12/24/17 06:49 12/24/17 06:49 PT 12.3 SECONDS (9.7-12.2) H 12/22/17 11:04 INR 1.1 12/22/17 11:04 APTT 36 SECONDS (21-34) H 12/22/17 11:04 - Additional Findings Additional findings: - Constitutional Appears: Non-toxic, No Acute Distress - Head Exam Head Exam: ATRAUMATIC, NORMAL INSPECTION, NORMOCEPHALIC - Eye Exam Eye Exam: EOMI, Normal appearance Pupil Exam: NORMAL ACCOMODATION - ENT Exam ENT Exam: Mucous Membranes Moist - Respiratory Exam Respiratory Exam: Clear to Auscultation Bilateral, NORMAL BREATHING PATTERN. absent: Rales, Rhonchi, Wheezes, Respiratory Distress - Cardiovascular Exam Cardiovascular Exam: REGULAR RHYTHM, RRR, +S1, +S2 - GI/Abdominal Exam GI & Abdominal Exam: Normal Bowel Sounds, Soft. absent: Tenderness - Extremities Exam Extremities exam: Positive for: normal capillary refill, pedal edema, pedal pulses present. Negative for: tenderness Additional comments: pitting edema b/l L wore than R - Back Exam Back exam: NORMAL INSPECTION - Neurological Exam Neurological exam: Alert, CN II-XII Intact, Oriented x3 - Psychiatric Exam Psychiatric exam: Normal Affect, Normal Mood - Skin Skin Exam: Intact, Normal Color, Warm Additional comments: LE edema Assessment and Plan - Assessment and Plan (Free Text) Assessment: BUCKY on CKD creatinine elevated in November at pmd's office (Dr. Caceres) Dr. Morin consulted, help appreciated renal u/s: 1. increased echogenicity of the b/l renal parenchymal cortices suggestive for medical renal disease 2. diminutive appearance of the bilateral kidneys which may represent underlying atrophy. 3. bilateral renal cysts CT abd/pelvis without contrast: no urolithiasis or evidence of recently passed genitourinary calculus. No acute abdominal pelvic pathology. Chronic atrophy of the left kidney. b/l renal cysts. prostatomegaly. UA: 2+ protein, 1+ gluc, 1+ blood urine osm: 301, protein 368, sodium 101 urine random creatinine 105.3 % sat: 22 ferritin: 102 hep panel- hep C antibody pos HIV (-) SPEP, PTH LE Edema probably 2/2 ckd Cxray: no active disease LE venous dopplers negative pulses 2+ Hep C Antibody Positive f/u Hep C viral load HTN continue home med Norvasc to 5mg po daily Lopressor 12.5mg po bid TSH: .28, Free T4: 1.24 HLD continue home med Crestor 2.5 po HS lipid panel: triglycerides 134, cholesterol 119, LDL 57, HDL 27 IGT HgA1C: 6.3 low carb, heart healthy diet Prophylaxis DVT: Heparin 5000 u sc q8h Pepcid 20mg po daily <Walter Alonso H - Last Filed: 12/24/17 15:08> Objective - Vital Signs/Intake and Output Vital Signs (last 24 hours): Temp Pulse Resp BP Pulse Ox 97.8 F 71 20 145/56 L 94 L 12/24/17 08:39 12/24/17 08:39 12/24/17 08:39 12/24/17 08:39 12/24/17 08:39 - Medications Medications: Current Medications Amlodipine Besylate (Norvasc) 5 mg PO DAILY [facility] Last Admin: 12/24/17 09:44 Dose: 5 mg Famotidine (Pepcid) 20 mg PO DAILY [facility] Last Admin: 12/24/17 09:44 Dose: 20 mg Heparin Sodium (Porcine) (Heparin) 5,000 units SC Q8 [facility] Last Admin: 12/24/17 14:41 Dose: 5,000 units Metoprolol Tartrate (Lopressor) 12.5 mg PO BID [facility] Last Admin: 12/24/17 09:44 Dose: 12.5 mg Rosuvastatin Calcium (Crestor) 2.5 mg PO HS [facility] Last Admin: 12/23/17 21:43 Dose: 2.5 mg - Labs Labs: 12/24/17 06:49 12/24/17 06:49 PT 12.3 SECONDS (9.7-12.2) H 12/22/17 11:04 INR 1.1 12/22/17 11:04 APTT 36 SECONDS (21-34) H 12/22/17 11:04 Attending/Attestation - Attestation I have personally seen and examined this patient.: Yes I have fully participated in the care of the patient.: Yes I have reviewed all pertinent clinical information, including history, physical exam and plan: Yes Notes (Text): 12/24/17 15:07 Medical attending: Patient was seen and examined by me, agree with the above note by the medical technicians. The patient has some baseline dementia. The patient is walking all over the floors - however he does not seem to understand the 24 hr urine collection. The nursing explain that the patient urinates in the collection container and then empties it. We placed up a sign is indian to help remind him to not throw out the collection thank you Walter Alonso
--- NOTE | 2017-12-24 15:41 | CP.PCM.PN ---
Subjective - Date & Time of Evaluation Date of Evaluation: 12/24/17 Time of Evaluation: 15:38 - Subjective Subjective: discussed case with staff, pt. has advanced kidney disease, very small echogenic kidneys GFR around 10 consistently pt does not fully understand situation remains very edematous Objective - Vital Signs/Intake and Output Vital Signs (last 24 hours): Temp Pulse Resp BP Pulse Ox 97.8 F 71 20 145/56 L 94 L 12/24/17 08:39 12/24/17 08:39 12/24/17 08:39 12/24/17 08:39 12/24/17 08:39 - Medications Medications: Current Medications Amlodipine Besylate (Norvasc) 5 mg PO DAILY [facility] Last Admin: 12/24/17 09:44 Dose: 5 mg Famotidine (Pepcid) 20 mg PO DAILY [facility] Last Admin: 12/24/17 09:44 Dose: 20 mg Heparin Sodium (Porcine) (Heparin) 5,000 units SC Q8 [facility] Last Admin: 12/24/17 14:41 Dose: 5,000 units Metoprolol Tartrate (Lopressor) 12.5 mg PO BID [facility] Last Admin: 12/24/17 09:44 Dose: 12.5 mg Rosuvastatin Calcium (Crestor) 2.5 mg PO HS [facility] Last Admin: 12/23/17 21:43 Dose: 2.5 mg - Labs Labs: 12/24/17 06:49 12/24/17 06:49 PT 12.3 SECONDS (9.7-12.2) H 12/22/17 11:04 INR 1.1 12/22/17 11:04 APTT 36 SECONDS (21-34) H 12/22/17 11:04 - Constitutional Appears: No Acute Distress, Chronically Ill - Head Exam Head Exam: ATRAUMATIC, NORMAL INSPECTION - Eye Exam Eye Exam: EOMI, Normal appearance - Neck Exam Neck Exam: Normal Inspection. absent: Tenderness - Respiratory Exam Respiratory Exam: Decreased Breath Sounds, NORMAL BREATHING PATTERN - Cardiovascular Exam Cardiovascular Exam: REGULAR RHYTHM, +S1 - GI/Abdominal Exam GI & Abdominal Exam: Soft. absent: Tenderness - Extremities Exam Extremities Exam: Pedal Edema. 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
[2017-12-24] MEDS: Rosuvastatin Calcium 2.5 mg Tab PO SCH (21:41)
[2017-12-25 07:31] LABS: INR 1.1; PROTHROMBIN TIME 12.3 SECONDS (9.7-12.2)
[2017-12-25 07:37] LABS: BASO # 0.1 K/uL (0.0-0.2); BASO % 0.8 % (0.0-2.0); EOS # 1.6 K/uL (0.0-0.7); EOS % 19.4 % (0.0-4.0); HEMOGLOBIN 9.1 g/dL (12.0-18.0); LYMPH # 2.8 K/uL (1.0-4.3); LYMPH % 33.4 % (20.0-40.0); MEAN CELL VOLUME 91.1 fL (80.0-94.0); MEAN CORPUSCULAR HEMOGLOBIN 32.1 pg (27.0-31.0); MEAN CORPUSCULAR HGB CONC 35.2 g/dL (33.0-37.0); MEAN PLATELET VOLUME 8.4 fL (7.2-11.7); MONO # 0.6 K/uL (0.0-0.8); MONO % 7.1 % (0.0-10.0); NEUT # 3.3 K/uL (1.8-7.0); NEUT % 39.3 % (50.0-75.0); RBC 2.85 Mil/uL (4.40-5.90); RED CELL DISTRIBUTION WIDTH 13.1 % (11.5-14.5); WHITE BLOOD COUNT 8.4 K/uL (4.8-10.8)
[2017-12-25 07:39] LABS: ALB/GLOB RATIO 0.8 (1.0-2.1); ALBUMIN 3.3 g/dL (3.5-5.0); CALCIUM 8.8 mg/dl (8.6-10.4)
--- NOTE | 2017-12-25 09:26 | CP.PCM.PN ---
<Erlinda Strickland - Last Filed: 12/25/17 11:06> Subjective - Date & Time of Evaluation Date of Evaluation: 12/25/17 Time of Evaluation: 07:00 - Subjective Subjective: PGY 1- Progress Note Patient seen and examine at bedside and in no acute distress. Patient is very forgetful and keeps discarding his urine instead of collecting it for 24 hour urine studies. Patient asks me if we are at [facility]. Patient denies any headache, chest pain, shortness of breath, abdominal pain, nausea, vomiting, constipation, or diarrhea. Objective - Vital Signs/Intake and Output Vital Signs (last 24 hours): Temp Pulse Resp BP Pulse Ox 97.4 F L 76 20 138/90 98 12/25/17 08:24 12/25/17 08:24 12/25/17 08:24 12/25/17 09:02 12/25/17 08:24 Intake and Output: 12/25/17 12/25/17 06:59 18:59 Intake Total 120 Balance 120 - Medications Medications: Current Medications Amlodipine Besylate (Norvasc) 5 mg PO DAILY [facility] Last Admin: 12/25/17 09:02 Dose: 5 mg Famotidine (Pepcid) 20 mg PO DAILY [facility] Last Admin: 12/25/17 09:02 Dose: 20 mg Furosemide (Lasix) 40 mg PO DAILY [facility] Last Admin: 12/25/17 09:02 Dose: 40 mg Heparin Sodium (Porcine) (Heparin) 5,000 units SC Q8 [facility] Last Admin: 12/25/17 06:05 Dose: 5,000 units Metoprolol Tartrate (Lopressor) 12.5 mg PO BID [facility] Last Admin: 12/25/17 09:02 Dose: 12.5 mg Rosuvastatin Calcium (Crestor) 2.5 mg PO HS [facility] Last Admin: 12/24/17 21:41 Dose: 2.5 mg - Labs Labs: 12/25/17 07:15 12/25/17 07:15 PT 12.3 SECONDS (9.7-12.2) H 12/25/17 07:15 INR 1.1 12/25/17 07:15 APTT 36 SECONDS (21-34) H 12/22/17 11:04 - Additional Findings Additional findings: - Constitutional Appears: Non-toxic, No Acute Distress - Head Exam Head Exam: ATRAUMATIC, NORMAL INSPECTION, NORMOCEPHALIC - Eye Exam Eye Exam: EOMI, Normal appearance Pupil Exam: NORMAL ACCOMODATION - ENT Exam ENT Exam: Mucous Membranes Moist - Respiratory Exam Respiratory Exam: Clear to Auscultation Bilateral, NORMAL BREATHING PATTERN. absent: Rales, Rhonchi, Wheezes, Respiratory Distress - Cardiovascular Exam Cardiovascular Exam: REGULAR RHYTHM, RRR, +S1, +S2 - GI/Abdominal Exam GI & Abdominal Exam: Normal Bowel Sounds, Soft. absent: Tenderness - Extremities Exam Extremities exam: Positive for: normal capillary refill, pedal edema, pedal pulses present. Negative for: tenderness Additional comments: pitting edema b/l L wore than R - Back Exam Back exam: NORMAL INSPECTION - Neurological Exam Neurological exam: Alert, CN II-XII Intact, Oriented x3 - Psychiatric Exam Psychiatric exam: Normal Affect, Normal Mood - Skin Skin Exam: Intact, Normal Color, Warm Additional comments: LE pitting edema Assessment and Plan - Assessment and Plan (Free Text) Assessment: BUCKY on CKD creatinine elevated in November at pmd's office (Dr. Caceres) Dr. 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 Patient explained the need for dialysis who agrees Dr. Pearl, surgery, consulted- help appreciated renal u/s: 1. increased echogenicity of the b/l renal parenchymal cortices suggestive for medical renal disease 2. diminutive appearance of the bilateral kidneys which may represent underlying atrophy. 3. bilateral renal cysts CT abd/pelvis without contrast: no urolithiasis or evidence of recently passed genitourinary calculus. No acute abdominal pelvic pathology. Chronic atrophy of the left kidney. b/l renal cysts. prostatomegaly. UA: 2+ protein, 1+ gluc, 1+ blood urine osm: 301, protein 368, sodium 101 urine random creatinine 105.3 % sat: 22 ferritin: 102 hep panel- hep C antibody pos HIV (-) SPEP, PTH LE Edema probably 2/2 ckd Cxray: no active disease LE venous dopplers negative pulses 2+ as per Dr. Morin added Lasix 40mg po daily Hep C Antibody Positive f/u Hep C viral load HTN continue home med Norvasc to 5mg po daily Lopressor 12.5mg po bid TSH: .28, Free T4: 1.24 HLD continue home med Crestor 2.5 po HS lipid panel: triglycerides 134, cholesterol 119, LDL 57, HDL 27 IGT HgA1C: 6.3 low carb, heart healthy diet Prophylaxis DVT: Heparin 5000 u sc q8h Pepcid 20mg po daily <AlonsoWalter hilton H - Last Filed: 12/25/17 12:16> Objective - Vital Signs/Intake and Output Vital Signs (last 24 hours): Temp Pulse Resp BP Pulse Ox 97.4 F L 76 20 138/90 98 12/25/17 08:24 12/25/17 08:24 12/25/17 08:24 12/25/17 09:02 12/25/17 08:24 Intake and Output: 12/25/17 12/25/17 06:59 18:59 Intake Total 120 Balance 120 - Medications Medications: Current Medications Amlodipine Besylate (Norvasc) 5 mg PO DAILY [facility] Last Admin: 12/25/17 09:02 Dose: 5 mg Famotidine (Pepcid) 20 mg PO DAILY [facility] Last Admin: 12/25/17 09:02 Dose: 20 mg Furosemide (Lasix) 40 mg PO DAILY [facility] Last Admin: 12/25/17 09:02 Dose: 40 mg Heparin Sodium (Porcine) (Heparin) 5,000 units SC Q8 [facility] Last Admin: 12/25/17 06:05 Dose: 5,000 units Metoprolol Tartrate (Lopressor) 12.5 mg PO BID [facility] Last Admin: 12/25/17 09:02 Dose: 12.5 mg Rosuvastatin Calcium (Crestor) 2.5 mg PO HS [facility] Last Admin: 12/24/17 21:41 Dose: 2.5 mg - Labs Labs: 12/25/17 07:15 12/25/17 07:15 PT 12.3 SECONDS (9.7-12.2) H 12/25/17 07:15 INR 1.1 12/25/17 07:15 APTT 36 SECONDS (21-34) H 12/22/17 11:04 Attending/Attestation - Attestation I have personally seen and examined this patient.: Yes I have fully participated in the care of the patient.: Yes I have reviewed all pertinent clinical information, including history, physical exam and plan: Yes Notes (Text): 12/25/17 12:14 Medical attending: Patient was seen and examined by me. Agree with the above note by the resident. Patient remains pleasant affect, and has dementia. He was able to say where he was today correctly. Walking in the hallway. Patient's creatine is rising steadily Consent for permath was aquired. thank you Walter Alonso
--- NOTE | 2017-12-25 10:34 | CP.PCM.PN ---
Subjective - Date & Time of Evaluation Date of Evaluation: 12/25/17 Time of Evaluation: 10:32 - Subjective Subjective: Appears same creat increased again- 5.5 same edematous state same confusion Objective - Vital Signs/Intake and Output Vital Signs (last 24 hours): Temp Pulse Resp BP Pulse Ox 97.4 F L 76 20 138/90 98 12/25/17 08:24 12/25/17 08:24 12/25/17 08:24 12/25/17 09:02 12/25/17 08:24 Intake and Output: 12/25/17 12/25/17 06:59 18:59 Intake Total 120 Balance 120 - Medications Medications: Current Medications Amlodipine Besylate (Norvasc) 5 mg PO DAILY [facility] Last Admin: 12/25/17 09:02 Dose: 5 mg Famotidine (Pepcid) 20 mg PO DAILY [facility] Last Admin: 12/25/17 09:02 Dose: 20 mg Furosemide (Lasix) 40 mg PO DAILY [facility] Last Admin: 12/25/17 09:02 Dose: 40 mg Heparin Sodium (Porcine) (Heparin) 5,000 units SC Q8 [facility] Last Admin: 12/25/17 06:05 Dose: 5,000 units Metoprolol Tartrate (Lopressor) 12.5 mg PO BID [facility] Last Admin: 12/25/17 09:02 Dose: 12.5 mg Rosuvastatin Calcium (Crestor) 2.5 mg PO HS [facility] Last Admin: 12/24/17 21:41 Dose: 2.5 mg - Labs Labs: 12/25/17 07:15 12/25/17 07:15 PT 12.3 SECONDS (9.7-12.2) H 12/25/17 07:15 INR 1.1 12/25/17 07:15 APTT 36 SECONDS (21-34) H 12/22/17 11:04 - Constitutional Appears: No Acute Distress, Chronically Ill - Head Exam Head Exam: ATRAUMATIC, NORMAL INSPECTION - Eye Exam Eye Exam: EOMI, Normal appearance - Neck Exam Neck Exam: Normal Inspection. absent: Tenderness - Respiratory Exam Respiratory Exam: Clear to Ausculation Bilateral, NORMAL BREATHING PATTERN - Cardiovascular Exam Cardiovascular Exam: REGULAR RHYTHM, +S1 - GI/Abdominal Exam GI & Abdominal Exam: Soft. absent: Tenderness - Extremities Exam Extremities Exam: Pedal Edema. 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
[2017-12-25 12:38] LABS: ALPHA-1-GLOBULIN (PEP) 0.4 g/dL (0.2-0.3)
--- NOTE | 2017-12-25 12:59 | CP.PCM.CON ---
History of Present Illness - History of Present Illness History of Present Illness: Vascular Surgery- Dr. iLve Reason for consult: Dialysis access 82M w/ pmhx significant for chronic kidney disease, patient was admitted for b/ l swellling of the . Surgery was consulted for hemodiaylsis access. Patient coversing freely during encounter. is Awake alert to person, and place. Currently denies fevers, chills chest pain shortness of breath, nausea, vomiting diarrhea PMH: CKD, HTN, HLD PSH: c-spine fusion ALL: NKDA SocialHx: denies etoh, tobacco, recreational drug use. Review of Systems - Review of Systems All systems: reviewed and no additional remarkable complaints except - Constitutional Constitutional: As Per HPI Past Patient History - Past Medical History & Family History Past Medical History?: Yes - Past Social History Smoking Status: Never Smoked - CARDIAC Hx Hypercholesterolemia: Yes Hx Hypertension: Yes - PULMONARY Hx Respiratory Disorders: No - NEUROLOGICAL Hx Neurological Disorder: No - HEENT Hx HEENT Problems: No - RENAL Other/Comment: PER NIECE "KIDNEY DISEASE" - ENDOCRINE/METABOLIC Hx Endocrine Disorders: No - HEMATOLOGICAL/ONCOLOGICAL Hx Blood Disorders: No - INTEGUMENTARY Hx Dermatological Problems: No - MUSCULOSKELETAL/RHEUMATOLOGICAL Hx Musculoskeletal Disorders: No Hx Falls: No - GASTROINTESTINAL Hx Gastrointestinal Disorders: No - GENITOURINARY/GYNECOLOGICAL Hx Genitourinary Disorders: No - PSYCHIATRIC Hx Substance Use: No - SURGICAL HISTORY Hx Surgeries: Yes - ANESTHESIA Hx Anesthesia: Yes Hx Anesthesia Reactions: No Meds Allergies/Adverse Reactions: Allergies Allergy/AdvReac Type Severity Reaction Status Date / Time No Known Allergies Allergy Verified 12/22/17 10:13 - Medications Medications: Current Medications Amlodipine Besylate (Norvasc) 5 mg PO DAILY [facility] Last Admin: 12/25/17 09:02 Dose: 5 mg Famotidine (Pepcid) 20 mg PO DAILY [facility] Last Admin: 12/25/17 09:02 Dose: 20 mg Furosemide (Lasix) 40 mg PO DAILY [facility] Last Admin: 12/25/17 09:02 Dose: 40 mg Heparin Sodium (Porcine) (Heparin) 5,000 units SC Q8 [facility] Last Admin: 12/25/17 06:05 Dose: 5,000 units Metoprolol Tartrate (Lopressor) 12.5 mg PO BID [facility] Last Admin: 12/25/17 09:02 Dose: 12.5 mg Rosuvastatin Calcium (Crestor) 2.5 mg PO HS [facility] Last Admin: 12/24/17 21:41 Dose: 2.5 mg Physical Exam - Constitutional Appears: Non-toxic, No Acute Distress - Head Exam Head Exam: ATRAUMATIC - Eye Exam Eye Exam: EOMI - Respiratory Exam Respiratory Exam: NORMAL BREATHING PATTERN. absent: Accessory Muscle Use, Respiratory Distress - Cardiovascular Exam Cardiovascular Exam: REGULAR RHYTHM. absent: Bradycardia, Tachycardia - GI/Abdominal Exam GI & Abdominal Exam: Soft. absent: Pulsatile Mass, Rebound, Rigid, Tenderness - Extremities Exam Extremities exam: Negative for: calf tenderness - Neurological Exam Neurological exam: Alert - Psychiatric Exam Psychiatric exam: Normal Mood - Skin Skin Exam: Intact, Warm Results - Vital Signs Recent Vital Signs: Last Vital Signs Temp 97.4 F L 12/25/17 08:24 Pulse 76 12/25/17 08:24 Resp 20 12/25/17 08:24 BP 138/90 12/25/17 09:02 Pulse Ox 98 12/25/17 08:24 - Labs Result Diagrams: 12/25/17 07:15 12/25/17 07:15 Labs: Laboratory Results - last 24 hr 12/24/17 12/25/17 12/25/17 06:49 07:15 07:15 WBC 8.4 RBC 2.85 L Hgb 9.1 L Hct 26.0 L MCV 91.1 MCH 32.1 H MCHC 35.2 RDW 13.1 Plt Count 229 MPV 8.4 Neut % (Auto) 39.3 L Lymph % (Auto) 33.4 [place] % (Auto) 7.1 Eos % (Auto) 19.4 H Baso % (Auto) 0.8 Neut # (Auto) 3.3 Lymph # (Auto) 2.8 [place] # (Auto) 0.6 Eos # (Auto) 1.6 H Baso # (Auto) 0.1 PT INR Sodium 136 Potassium 3.8 Chloride 96 L Carbon Dioxide 24 Anion Gap 19 BUN 66 H Creatinine 5.5 H Est GFR ( Amer) 12 Est GFR (Non-Af Amer) 10 Random Glucose 85 Calcium 8.8 Phosphorus 4.5 Magnesium 2.3 % Saturation Ferritin 100.0 Total Bilirubin 0.6 AST 26 ALT 10 L Alkaline Phosphatase 90 Total Protein 7.2 Total Protein (PEP) 6.9 Albumin 3.3 L Albumin (PEP) 3.0 L Globulin 3.9 Albumin/Globulin Ratio 0.8 L Ndqbj-7-Ccfaxtboj 0.4 H Txbum-7-Reiwoxqpg 1.0 H Vipy-6-Czcqrolr 0.4 Wmyu-0-Xvvjgpbm 0.6 H Gamma Globulins 1.4 Abnorm Protein Band 1 TEST NOT PERFORMED Abnorm Protein Band 2 TEST NOT PERFORMED Abnorm Protein Band 3 TEST NOT PERFORMED LYNDA & SPEP Interp See note 12/25/17 12/25/17 07:15 07:15 WBC RBC Hgb Hct MCV MCH MCHC RDW Plt Count MPV Neut % (Auto) Lymph % (Auto) [place] % (Auto) Eos % (Auto) Baso % (Auto) Neut # (Auto) Lymph # (Auto) [place] # (Auto) Eos # (Auto) Baso # (Auto) PT 12.3 H INR 1.1 Sodium Potassium Chloride Carbon Dioxide Anion Gap BUN Creatinine Est GFR ( Amer) Est GFR (Non-Af Amer) Random Glucose Calcium Phosphorus Magnesium % Saturation 21 Ferritin Total Bilirubin AST ALT Alkaline Phosphatase Total Protein Total Protein (PEP) Albumin Albumin (PEP) Globulin Albumin/Globulin Ratio Kqrre-7-Cnrputert Fznlp-7-Qqeukexjx Hcvr-1-Ztzqikmg Omot-4-Yrofqtyt Gamma Globulins Abnorm Protein Band 1 Abnorm Protein Band 2 Abnorm Protein Band 3 LYNDA & SPEP Interp Assessment & Plan - Assessment and Plan (Free Text) Assessment: 82M w/ CKD, needs dialysis access Plan: - NPO after MN - plan for OR tomorrow - d/w Dr. Calos Pizarro PGY1
[2017-12-25] MEDS: Rosuvastatin Calcium 2.5 mg Tab PO SCH (21:30)
[2017-12-26 08:59] LABS: ALB/GLOB RATIO 0.8 (1.0-2.1); ALBUMIN 3.3 g/dL (3.5-5.0); CALCIUM 9.1 mg/dl (8.6-10.4)
[2017-12-26 09:16] LABS: BASO % 0.7 % (0.0-2.0); EOS # 1.2 K/uL (0.0-0.7); EOS % 16.9 % (0.0-4.0); HEMOGLOBIN 9.5 g/dL (12.0-18.0); LYMPH # 1.9 K/uL (1.0-4.3); LYMPH % 27.4 % (20.0-40.0); MEAN CELL VOLUME 90.8 fL (80.0-94.0); MEAN CORPUSCULAR HEMOGLOBIN 32.1 pg (27.0-31.0); MEAN CORPUSCULAR HGB CONC 35.3 g/dL (33.0-37.0); MEAN PLATELET VOLUME 8.5 fL (7.2-11.7); MONO # 0.5 K/uL (0.0-0.8); MONO % 7.7 % (0.0-10.0); NEUT # 3.4 K/uL (1.8-7.0); NEUT % 47.3 % (50.0-75.0); NRBC % 0.1 % (0.0-2.0); RBC 2.95 Mil/uL (4.40-5.90); WHITE BLOOD COUNT 7.1 K/uL (4.8-10.8)
--- NOTE | 2017-12-26 09:41 | CP.PCM.PN ---
<Erlinda Strickland - Last Filed: 12/26/17 13:14> Subjective - Date & Time of Evaluation Date of Evaluation: 12/26/17 Time of Evaluation: 07:00 - Subjective Subjective: PGY1- Medicine Note Patient is seen and examined at bedside and in no acute distress. Patient has no complaints. Patient's niece is at bedside and is explained the plans for permacath placement and av fistula placement by surgery resident and I. Patient is DNR/ DNI but will have it rescinded for the AV fistula placement. Objective - Vital Signs/Intake and Output Vital Signs (last 24 hours): Temp Pulse Resp BP Pulse Ox 97.6 F 67 20 147/55 L 97 12/26/17 07:00 12/26/17 07:30 12/26/17 07:00 12/26/17 07:00 12/26/17 07:00 - Medications Medications: Current Medications Amlodipine Besylate (Norvasc) 5 mg PO DAILY [facility] Last Admin: 12/25/17 09:02 Dose: 5 mg Famotidine (Pepcid) 20 mg PO DAILY [facility] Last Admin: 12/25/17 09:02 Dose: 20 mg Furosemide (Lasix) 40 mg PO DAILY [facility] Last Admin: 12/25/17 09:02 Dose: 40 mg Heparin Sodium (Porcine) (Heparin) 5,000 units SC Q8 [facility] Last Admin: 12/25/17 21:31 Dose: 5,000 units Metoprolol Tartrate (Lopressor) 12.5 mg PO BID [facility] Last Admin: 12/25/17 17:25 Dose: 12.5 mg Rosuvastatin Calcium (Crestor) 2.5 mg PO HS [facility] Last Admin: 12/25/17 21:30 Dose: 2.5 mg - Labs Labs: 12/26/17 08:33 12/26/17 08:33 PT 12.3 SECONDS (9.7-12.2) H 12/25/17 07:15 INR 1.1 12/25/17 07:15 APTT 36 SECONDS (21-34) H 12/22/17 11:04 - Additional Findings Additional findings: - Constitutional Appears: Non-toxic, No Acute Distress - Head Exam Head Exam: ATRAUMATIC, NORMAL INSPECTION, NORMOCEPHALIC - Eye Exam Eye Exam: EOMI, Normal appearance Pupil Exam: NORMAL ACCOMODATION - ENT Exam ENT Exam: Mucous Membranes Moist - Respiratory Exam Respiratory Exam: Clear to Auscultation Bilateral, NORMAL BREATHING PATTERN. absent: Rales, Rhonchi, Wheezes, Respiratory Distress - Cardiovascular Exam Cardiovascular Exam: REGULAR RHYTHM, RRR, +S1, +S2 - GI/Abdominal Exam GI & Abdominal Exam: Normal Bowel Sounds, Soft. absent: Tenderness - Extremities Exam Extremities exam: Positive for: normal capillary refill, pedal edema, pedal pulses present. Negative for: tenderness Additional comments: pitting edema b/l L wore than R - Back Exam Back exam: NORMAL INSPECTION - Neurological Exam Neurological exam: Alert, CN II-XII Intact, Oriented x3 - Psychiatric Exam Psychiatric exam: Normal Affect, Normal Mood - Skin Skin Exam: Intact, Normal Color, Warm Additional comments: LE pitting edema Assessment and Plan - Assessment and Plan (Free Text) Assessment: BUCKY on CKD creatinine elevated in November at pmd's office (Dr. Caceres) Dr. 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 Patient explained the need for dialysis who agrees Dr. Pearl, surgery, consulted- help appreciated -permacath placement today -AVF on 12/29/17 renal u/s: 1. increased echogenicity of the b/l renal parenchymal cortices suggestive for medical renal disease 2. diminutive appearance of the bilateral kidneys which may represent underlying atrophy. 3. bilateral renal cysts CT abd/pelvis without contrast: no urolithiasis or evidence of recently passed genitourinary calculus. No acute abdominal pelvic pathology. Chronic atrophy of the left kidney. b/l renal cysts. prostatomegaly. UA: 2+ protein, 1+ gluc, 1+ blood urine osm: 301, protein 368, sodium 101 urine random creatinine 105.3 % sat: 22 ferritin: 102 hep panel- hep C antibody pos HIV (-) SPEP: suggestive of acute inflammation pattern with elevation of acute phase proteins PTH LE Edema probably 2/2 ckd Cxray: no active disease LE venous dopplers negative pulses 2+ as per Dr. Morin added Lasix 40mg po daily Echo (12/22): LVEF 61, left ventricle is normal size. borderline concentric left ventricular hypertrophy. normal lv segmental wall motion. transmitral doppler flow pattern in grade II pseudonormal filling dynamics Hep C Antibody Positive f/u Hep C viral load HTN continue home med Norvasc to 5mg po daily Lopressor 12.5mg po bid TSH: .28, Free T4: 1.24 HLD continue home med Crestor 2.5 po HS lipid panel: triglycerides 134, cholesterol 119, LDL 57, HDL 27 IGT HgA1C: 6.3 low carb, heart healthy diet Prophylaxis DVT: Heparin 5000 u sc q8h Pepcid 20mg po daily <Walter Alonso H - Last Filed: 12/26/17 17:11> Objective - Vital Signs/Intake and Output Vital Signs (last 24 hours): Temp Pulse Resp BP Pulse Ox 97.2 F L 64 18 139/69 98 12/26/17 16:45 12/26/17 16:45 12/26/17 16:45 12/26/17 16:45 12/26/17 16:45 Intake and Output: 12/26/17 12/26/17 06:59 18:59 Intake Total 157 Balance 157 - Medications Medications: Current Medications Amlodipine Besylate (Norvasc) 5 mg PO DAILY [facility] Last Admin: 12/26/17 09:05 Dose: 5 mg Calcitriol (Rocaltrol) 0.25 mcg PO DAILY [facility] Calcium Acetate (Phoslo) 667 mg PO TIDCC [facility] Epoetin Kenneth (Procrit) 10,000 unit IV MWF [facility] Famotidine (Pepcid) 20 mg PO DAILY [facility] Last Admin: 12/26/17 09:05 Dose: 20 mg Ferric Sodium Gluconate Complex (Ferrlecit) 125 mg IVPB DAILY [facility] Stop: 01/03/18 13:01 Last Admin: 12/26/17 15:56 Dose: 125 mg Heparin Sodium (Porcine) (Heparin) 5,000 units SC Q8 [facility] Last Admin: 12/25/17 21:31 Dose: 5,000 units Metoprolol Tartrate (Lopressor) 12.5 mg PO BID [facility] Last Admin: 12/26/17 09:05 Dose: 12.5 mg Rosuvastatin Calcium (Crestor) 2.5 mg PO HS [facility] Last Admin: 12/25/17 21:30 Dose: 2.5 mg - Labs Labs: 12/26/17 08:33 12/26/17 08:33 PT 12.3 SECONDS (9.7-12.2) H 12/25/17 07:15 INR 1.1 12/25/17 07:15 APTT 36 SECONDS (21-34) H 12/22/17 11:04 Attending/Attestation - Attestation I have personally seen and examined this patient.: Yes I have fully participated in the care of the patient.: Yes I have reviewed all pertinent clinical information, including history, physical exam and plan: Yes Notes (Text): 12/26/17 16:52 Medical attending: Patient was seen and examined by me. Agree with the above note by resident The patient is pending permacath placment today. The plan is later for AVF Otherwise he was not in any acute distress this morning. The patient was not in any acute distress. He was ambulating in the hallway. Currently the creatine is slightly increased to 5.6. For now the K is stable and bicarb is stable for the time being thank you Walter Alonso
[2017-12-26] MEDS ORDERED: ceFAZolin 1 gm in NS 1 GM/100 ML BAG IVPB ONE (10:11)
[2017-12-26] MEDS ORDERED: Lidocaine Hydrochloride 10 ML INJ ONE (10:11)
[2017-12-26] MEDS ORDERED: HEPARIN-NS 5,000 UNITS/500 ML 5,000 UNIT/500 ML BAG IV ONE (10:12)
[2017-12-26] MEDS ORDERED: Iohexol 240 (50 ml) ONE (10:53)
[2017-12-26] MEDS ORDERED: Propofol 10 mg/ml Inj (20 ML) ONE (11:32)
[2017-12-26] MEDS ORDERED: Midazolam 2 MG/2 ML VIAL ONE (11:32)
[2017-12-26] MEDS ORDERED: Etomidate 20 mg/10ml Inj IV ONE (11:53)
--- NOTE | 2017-12-26 12:18 | PCM.SURG1 ---
Surgeon's Initial Post Op Note - Surgeon's Notes Surgeon: Dr. [employer] Rep: PGY1, Sina OMS3 Pre-Operative Diagnosis: End stage renal disase Operative Findings: IJ visualized w/ ultrasound. For details see op note Post-Operative Diagnosis: as above Operation Performed: Right IJ permacath placement under visualization with fluoroscopy Specimen/Specimens Removed: none Estimated Blood Loss: EBL {In ML}: 7 Post-Op Condition: Good Date of Surgery/Procedure: 12/26/17 Time of Surgery/Procedure: 11:40
--- NOTE | 2017-12-26 12:49 | CP.PCM.PN ---
Subjective - Date & Time of Evaluation Date of Evaluation: 12/26/17 Time of Evaluation: 12:46 - Subjective Subjective: s/p right permcath placement seen earlier; no new complaint dialysis consent obtained from health proxy creat increased to 5.6 renal US c/w ESRD Objective - Vital Signs/Intake and Output Vital Signs (last 24 hours): Temp Pulse Resp BP Pulse Ox 98.7 F 62 7 L 139/44 L 99 12/26/17 12:15 12/26/17 12:30 12/26/17 12:30 12/26/17 12:30 12/26/17 12:30 Intake and Output: 12/26/17 12/26/17 06:59 18:59 Intake Total 7 Balance 7 - Medications Medications: Current Medications Amlodipine Besylate (Norvasc) 5 mg PO DAILY [facility] Last Admin: 12/26/17 09:05 Dose: 5 mg Famotidine (Pepcid) 20 mg PO DAILY [facility] Last Admin: 12/26/17 09:05 Dose: 20 mg Furosemide (Lasix) 40 mg PO DAILY [facility] Last Admin: 12/26/17 09:05 Dose: 40 mg Heparin Sodium (Porcine) (Heparin) 5,000 units SC Q8 [facility] Last Admin: 12/25/17 21:31 Dose: 5,000 units Metoprolol Tartrate (Lopressor) 12.5 mg PO BID [facility] Last Admin: 12/26/17 09:05 Dose: 12.5 mg Rosuvastatin Calcium (Crestor) 2.5 mg PO HS [facility] Last Admin: 12/25/17 21:30 Dose: 2.5 mg - Labs Labs: 12/26/17 08:33 12/26/17 08:33 PT 12.3 SECONDS (9.7-12.2) H 12/25/17 07:15 INR 1.1 12/25/17 07:15 APTT 36 SECONDS (21-34) H 12/22/17 11:04 - Constitutional Appears: No Acute Distress, Chronically Ill - Head Exam Head Exam: ATRAUMATIC, NORMAL INSPECTION - Eye Exam Eye Exam: EOMI, Normal appearance - Neck Exam Neck Exam: Normal Inspection. absent: Tenderness - Respiratory Exam Respiratory Exam: Clear to Ausculation Bilateral, NORMAL BREATHING PATTERN - Cardiovascular Exam Cardiovascular Exam: REGULAR RHYTHM, +S1 - GI/Abdominal Exam GI & Abdominal Exam: Soft. absent: Tenderness - Extremities Exam Extremities Exam: Pedal Edema. absent: Tenderness - Neurological Exam Neurological Exam: Awake, CN II-XII Intact - Skin Skin Exam: Dry, Warm Assessment and Plan (1) CKD stage 5 secondary to hypertension Status: Acute (2) CKD (chronic kidney disease) stage 5, GFR less than 15 ml/min Status: Acute (3) Fluid overload Status: Acute (4) Hypertension Status: Acute (5) ESRD (end stage renal disease) Status: Acute - Assessment and Plan (Free Text) Plan: dialysis now, then MWF check PTH, iron stores known hep C+ Will need outpt dialysis placement
--- NOTE | 2017-12-26 12:58 | RAD ---
HISTORY: s/p Permacath placement COMPARISON: 12/22/2017 FINDINGS: LUNGS: No active pulmonary disease. PLEURA: No significant pleural effusion identified, no pneumothorax apparent. CARDIOVASCULAR: Normal heart size. New right PermCath. OSSEOUS STRUCTURES: No significant abnormalities. VISUALIZED UPPER ABDOMEN: Normal. OTHER FINDINGS: None. IMPRESSION: No active disease. New right PermCath.
--- NOTE | 2017-12-26 13:19 | RAD ---
PROCEDURE: Intraoperative Fluoroscopy. HISTORY: RENAL FAILURE FINDINGS: Fluoroscopic assistance was provided for right-sided PermCath placement. Please refer to the operative report from NOEMÍ Toro.
[2017-12-26] MEDS: Ferric Sodium Gluconat Complex 62.5 mg/5 ml Vial IVPB SCH (15:56)
--- NOTE | 2017-12-26 20:34 | CP.PCM.PN ---
<Kristi Blair - Last Filed: 12/27/17 06:08> Subjective - Date & Time of Evaluation Date of Evaluation: 12/27/17 Time of Evaluation: 06:00 - Subjective Subjective: Medicine Progress Note: Patient is seen and examined at bedside and in no acute distress. Patient has no complaints. Objective - Vital Signs/Intake and Output Vital Signs (last 24 hours): Temp Pulse Resp BP Pulse Ox 97.4 F L 79 20 149/63 97 12/26/17 17:24 12/26/17 17:24 12/26/17 17:24 12/26/17 17:24 12/26/17 17:24 Intake and Output: 12/26/17 12/27/17 18:59 06:59 Intake Total 157 Output Total 200 Balance -43 - Medications Medications: Current Medications Amlodipine Besylate (Norvasc) 5 mg PO DAILY [facility] Last Admin: 12/26/17 09:05 Dose: 5 mg Calcitriol (Rocaltrol) 0.25 mcg PO DAILY [facility] Calcium Acetate (Phoslo) 667 mg PO TIDCC [facility] Last Admin: 12/26/17 18:52 Dose: 667 mg Epoetin Kenneth (Procrit) 10,000 unit IV MWF [facility] Famotidine (Pepcid) 20 mg PO DAILY [facility] Last Admin: 12/26/17 09:05 Dose: 20 mg Ferric Sodium Gluconate Complex (Ferrlecit) 125 mg IVPB DAILY [facility] Stop: 01/03/18 13:01 Last Admin: 12/26/17 15:56 Dose: 125 mg Heparin Sodium (Porcine) (Heparin) 5,000 units SC Q8 [facility] Last Admin: 12/25/17 21:31 Dose: 5,000 units Metoprolol Tartrate (Lopressor) 12.5 mg PO BID [facility] Last Admin: 12/26/17 09:05 Dose: 12.5 mg Rosuvastatin Calcium (Crestor) 2.5 mg PO HS [facility] Last Admin: 12/25/17 21:30 Dose: 2.5 mg - Labs Labs: 12/26/17 08:33 12/26/17 08:33 PT 12.3 SECONDS (9.7-12.2) H 12/25/17 07:15 INR 1.1 12/25/17 07:15 APTT 36 SECONDS (21-34) H 12/22/17 11:04 - Constitutional Appears: No Acute Distress - Head Exam Head Exam: ATRAUMATIC, NORMAL INSPECTION - Eye Exam Eye Exam: EOMI, Normal appearance - ENT Exam ENT Exam: Mucous Membranes Moist - Respiratory Exam Respiratory Exam: Clear to Ausculation Bilateral, NORMAL BREATHING PATTERN - Cardiovascular Exam Cardiovascular Exam: REGULAR RHYTHM, +S1, +S2 - GI/Abdominal Exam GI & Abdominal Exam: Soft, Normal Bowel Sounds. absent: Tenderness - Extremities Exam Extremities Exam: Normal Capillary Refill, Pedal Edema. absent: Tenderness - Neurological Exam Neurological Exam: Alert, Awake, Oriented x3 - Psychiatric Exam Psychiatric exam: Normal Affect Assessment and Plan - Assessment and Plan (Free Text) Assessment: BUCKY on CKD creatinine elevated in November at pmd's office (Dr. Caceres) Dr. 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 Patient explained the need for dialysis who agrees Dr. Pearl, surgery, consulted- help appreciated -permacath placement today -AVF on 12/29/17 renal u/s: 1. increased echogenicity of the b/l renal parenchymal cortices suggestive for medical renal disease 2. diminutive appearance of the bilateral kidneys which may represent underlying atrophy. 3. bilateral renal cysts CT abd/pelvis without contrast: no urolithiasis or evidence of recently passed genitourinary calculus. No acute abdominal pelvic pathology. Chronic atrophy of the left kidney. b/l renal cysts. prostatomegaly. UA: 2+ protein, 1+ gluc, 1+ blood urine osm: 301, protein 368, sodium 101 urine random creatinine 105.3 % sat: 22 ferritin: 102 hep panel- hep C antibody pos HIV (-) SPEP: suggestive of acute inflammation pattern with elevation of acute phase proteins PTH LE Edema probably 2/2 ckd Cxray: no active disease LE venous dopplers negative pulses 2+ as per Dr. Morin added Lasix 40mg po daily Echo (12/22): LVEF 61, left ventricle is normal size. borderline concentric left ventricular hypertrophy. normal lv segmental wall motion. transmitral doppler flow pattern in grade II pseudonormal filling dynamics Hep C Antibody Positive f/u Hep C viral load HTN continue home med Norvasc to 5mg po daily Lopressor 12.5mg po bid TSH: .28, Free T4: 1.24 HLD continue home med Crestor 2.5 po HS lipid panel: triglycerides 134, cholesterol 119, LDL 57, HDL 27 IGT HgA1C: 6.3 low carb, heart healthy diet Prophylaxis DVT: Heparin 5000 u sc q8h Pepcid 20mg po daily <Walter Alonso H - Last Filed: 12/27/17 11:08> Objective - Vital Signs/Intake and Output Vital Signs (last 24 hours): Temp Pulse Resp BP Pulse Ox 98.3 F 64 20 135/64 94 L 12/27/17 09:02 12/27/17 09:02 12/27/17 09:02 12/27/17 09:02 12/27/17 09:02 - Medications Medications: Current Medications Amlodipine Besylate (Norvasc) 5 mg PO DAILY [facility] Last Admin: 12/27/17 09:14 Dose: 5 mg Calcitriol (Rocaltrol) 0.25 mcg PO DAILY [facility] Last Admin: 12/27/17 09:18 Dose: 0.25 mcg Calcium Acetate (Phoslo) 667 mg PO TIDCC [facility] Last Admin: 12/27/17 08:32 Dose: 667 mg Epoetin Kenneth (Procrit) 10,000 unit IV MWF [facility] Famotidine (Pepcid) 20 mg PO DAILY [facility] Last Admin: 12/27/17 09:14 Dose: 20 mg Ferric Sodium Gluconate Complex (Ferrlecit) 125 mg IVPB DAILY [facility] Stop: 01/03/18 13:01 Last Admin: 12/27/17 09:15 Dose: 125 mg Heparin Sodium (Porcine) (Heparin) 5,000 units SC Q8 [facility] Last Admin: 12/25/17 21:31 Dose: 5,000 units Metoprolol Tartrate (Lopressor) 12.5 mg PO BID [facility] Last Admin: 12/27/17 09:14 Dose: 12.5 mg Rosuvastatin Calcium (Crestor) 2.5 mg PO HS [facility] Last Admin: 12/26/17 22:19 Dose: 2.5 mg - Labs Labs: 12/27/17 07:04 12/27/17 07:04 PT 12.3 SECONDS (9.7-12.2) H 12/25/17 07:15 INR 1.1 12/25/17 07:15 APTT 36 SECONDS (21-34) H 12/22/17 11:04 Attending/Attestation - Attestation I have personally seen and examined this patient.: Yes I have fully participated in the care of the patient.: Yes I have reviewed all pertinent clinical information, including history, physical exam and plan: Yes Notes (Text): 12/27/17 11:05 Medical attending: Patient was seen and examined by me. Agree with the above note by the resident The patient was not in any acute distress when I saw her. The patient is S/P permacath placement and he underwent HD. He was observed walking around in the hallway again like previous. Very pleasant affect thank you Walter Alonso
--- NOTE | 2017-12-26 21:28 | OP ---
PROCEDURE DATE: 12/26/2017 PREOPERATIVE DIAGNOSIS: Renal failure. POSTOPERATIVE DIAGNOSIS: Renal failure. PROCEDURES CARRIED OUT: Placement of Perm-A-Cath right jugular vein with C-arm fluoroscopy with ultrasound-guided puncture and micropuncture technique. SURGEON: Phu Live Jr., MD [employer] EXECUTIVE [employer] SALES: Dr. Pizarro. TYPE OF ANESTHESIA: ;Local with sedation. ANESTHESIOLOGIST: Dr. Aguilera. INDICATIONS: A 82-year-old man with partial dementia, requires dialysis. OPERATIVE FINDINGS: Catheter was inserted uneventfully via the jugular vein. DESCRIPTION OF PROCEDURE: After the skin was prepped and draped and standard appropriate time-out and other maneuvers carried out, we punctured the jugular vein under ultrasound guidance. We advanced the guidewire centrally, changed this to 0.035 wire which was placed in the inferior vena cava, put a sheath dilator over this, created a tunnel on the chest wall and placed the catheter. The catheter originated on the right chest wall, went through the jugular vein and terminated in the superior vena cava and right atrium. It was flushed with heparinized saline, had good flow and return. Sterile dressings were applied. Operation carried out, Perm-A-Cath, right jugular vein with C-arm fluoroscopy with ultrasound-guided puncture and micropuncture technique. Ultrasound images of the neck showed the vein was 14 mm in diameter with normal compressibility and no evidence of intraluminal thrombosis. Phu Live Jr., MD
[2017-12-26] MEDS: Rosuvastatin Calcium 2.5 mg Tab PO SCH (22:19)
--- NOTE | 2017-12-27 07:15 | CP.PCM.PN ---
Subjective - Date & Time of Evaluation Date of Evaluation: 12/27/17 Time of Evaluation: 06:30 - Subjective Subjective: Vascular Surgery- Dr. Live Patient seen and examined at bedside this AM. No acute events overnight. Permacath placement yesterday. Site clean dry intact. OK to use port for dialysis Objective - Vital Signs/Intake and Output Vital Signs (last 24 hours): Temp Pulse Resp BP Pulse Ox 98.6 F 63 20 139/74 95 12/26/17 23:30 12/27/17 04:11 12/26/17 23:30 12/26/17 23:30 12/26/17 23:30 - Medications Medications: Current Medications Amlodipine Besylate (Norvasc) 5 mg PO DAILY [facility] Last Admin: 12/26/17 09:05 Dose: 5 mg Calcitriol (Rocaltrol) 0.25 mcg PO DAILY [facility] Calcium Acetate (Phoslo) 667 mg PO TIDCC [facility] Last Admin: 12/26/17 18:52 Dose: 667 mg Epoetin Kenneth (Procrit) 10,000 unit IV MWF [facility] Famotidine (Pepcid) 20 mg PO DAILY [facility] Last Admin: 12/26/17 09:05 Dose: 20 mg Ferric Sodium Gluconate Complex (Ferrlecit) 125 mg IVPB DAILY [facility] Stop: 01/03/18 13:01 Last Admin: 12/26/17 15:56 Dose: 125 mg Heparin Sodium (Porcine) (Heparin) 5,000 units SC Q8 [facility] Last Admin: 12/25/17 21:31 Dose: 5,000 units Metoprolol Tartrate (Lopressor) 12.5 mg PO BID [facility] Last Admin: 12/26/17 22:20 Dose: 12.5 mg Rosuvastatin Calcium (Crestor) 2.5 mg PO HS [facility] Last Admin: 12/26/17 22:19 Dose: 2.5 mg - Labs Labs: 12/26/17 08:33 12/26/17 08:33 PT 12.3 SECONDS (9.7-12.2) H 12/25/17 07:15 INR 1.1 12/25/17 07:15 APTT 36 SECONDS (21-34) H 12/22/17 11:04 - Constitutional Appears: Non-toxic, No Acute Distress - Head Exam Head Exam: ATRAUMATIC - Eye Exam Eye Exam: EOMI. absent: Scleral icterus - ENT Exam ENT Exam: Mucous Membranes Moist - Neck Exam Additional comments: Dressing C/D/I. no strike through No signs of erythema - Respiratory Exam Respiratory Exam: NORMAL BREATHING PATTERN. absent: Accessory Muscle Use, Respiratory Distress - Cardiovascular Exam Cardiovascular Exam: +S1, +S2. absent: Bradycardia, Tachycardia - GI/Abdominal Exam GI & Abdominal Exam: Soft. absent: Tenderness - Neurological Exam Neurological Exam: Awake - Skin Skin Exam: Intact, Warm Assessment and Plan - Assessment and Plan (Free Text) Assessment: 82M s/p RIJ permacath placement Plan: - ok to use permacath for dialysis - OR friday for AV fistula - left arm precautions - d/w Dr. Calos Pizarro PGY1
[2017-12-27 07:18] LABS: BASO # 0.1 K/uL (0.0-0.2); BASO % 0.8 % (0.0-2.0); EOS # 0.7 K/uL (0.0-0.7); EOS % 10.2 % (0.0-4.0); HEMOGLOBIN 8.6 g/dL (12.0-18.0); LYMPH # 2.2 K/uL (1.0-4.3); MEAN CELL VOLUME 91.7 fL (80.0-94.0); MEAN CORPUSCULAR HEMOGLOBIN 32.4 pg (27.0-31.0); MEAN CORPUSCULAR HGB CONC 35.3 g/dL (33.0-37.0); MEAN PLATELET VOLUME 8.3 fL (7.2-11.7); MONO # 0.6 K/uL (0.0-0.8); MONO % 9.3 % (0.0-10.0); NEUT # 3.1 K/uL (1.8-7.0); NEUT % 46.7 % (50.0-75.0); RBC 2.66 Mil/uL (4.40-5.90); RED CELL DISTRIBUTION WIDTH 13.4 % (11.5-14.5); WHITE BLOOD COUNT 6.5 K/uL (4.8-10.8)
[2017-12-27 08:05] LABS: ALB/GLOB RATIO 0.8 (1.0-2.1); CALCIUM 9.2 mg/dl (8.6-10.4)
--- NOTE | 2017-12-27 09:00 | CP.PCM.PN ---
Subjective - Date & Time of Evaluation Date of Evaluation: 12/27/17 Time of Evaluation: 08:57 - Subjective Subjective: Notes reviewed Feels well this am More energy Appetite good, does not like hospital food! Tolerated dialysis well No pain No bleeding at permacath site ROS: 10 point ros negative other than stated above Objective - Vital Signs/Intake and Output Vital Signs (last 24 hours): Temp Pulse Resp BP Pulse Ox 98.6 F 65 20 139/74 95 12/26/17 23:30 12/27/17 07:30 12/26/17 23:30 12/26/17 23:30 12/26/17 23:30 - Medications Medications: Current Medications Amlodipine Besylate (Norvasc) 5 mg PO DAILY [facility] Last Admin: 12/26/17 09:05 Dose: 5 mg Calcitriol (Rocaltrol) 0.25 mcg PO DAILY [facility] Calcium Acetate (Phoslo) 667 mg PO TIDCC [facility] Last Admin: 12/27/17 08:32 Dose: 667 mg Epoetin Kenneth (Procrit) 10,000 unit IV MWF [facility] Famotidine (Pepcid) 20 mg PO DAILY [facility] Last Admin: 12/26/17 09:05 Dose: 20 mg Ferric Sodium Gluconate Complex (Ferrlecit) 125 mg IVPB DAILY [facility] Stop: 01/03/18 13:01 Last Admin: 12/26/17 15:56 Dose: 125 mg Heparin Sodium (Porcine) (Heparin) 5,000 units SC Q8 [facility] Last Admin: 12/25/17 21:31 Dose: 5,000 units Metoprolol Tartrate (Lopressor) 12.5 mg PO BID [facility] Last Admin: 12/26/17 22:20 Dose: 12.5 mg Rosuvastatin Calcium (Crestor) 2.5 mg PO HS [facility] Last Admin: 12/26/17 22:19 Dose: 2.5 mg - Labs Labs: 12/27/17 07:04 12/27/17 07:04 PT 12.3 SECONDS (9.7-12.2) H 12/25/17 07:15 INR 1.1 12/25/17 07:15 APTT 36 SECONDS (21-34) H 12/22/17 11:04 - Constitutional Appears: Non-toxic, No Acute Distress - Head Exam Head Exam: ATRAUMATIC, NORMAL INSPECTION - Eye Exam Eye Exam: EOMI, Normal appearance - ENT Exam ENT Exam: Mucous Membranes Moist, Normal Oropharynx - Neck Exam Neck Exam: absent: Tenderness, Thyromegaly - Respiratory Exam Respiratory Exam: Clear to Ausculation Bilateral. absent: Rales, Rhonchi - Cardiovascular Exam Cardiovascular Exam: REGULAR RHYTHM. absent: JVD, RRR - GI/Abdominal Exam GI & Abdominal Exam: Soft, Normal Bowel Sounds - Extremities Exam Extremities Exam: absent: Pedal Edema, Tenderness - Neurological Exam Neurological Exam: Alert, Awake - Skin Skin Exam: Dry, Warm Assessment and Plan (1) Anemia Status: Acute (2) ESRD (end stage renal disease) Status: Acute (3) Hypertension Status: Acute - Assessment and Plan (Free Text) Assessment: Tolerating dialysis well Azotemia improving BP improving RONIT with dialysis AVF as scheduled by vascular surgery Dialysis next 12/29
[2017-12-27] MEDS: Ferric Sodium Gluconat Complex 62.5 mg/5 ml Vial IVPB SCH (09:15)
[2017-12-27] MEDS: Rosuvastatin Calcium 2.5 mg Tab PO SCH (21:51)
--- NOTE | 2017-12-27 22:37 | CP.PCM.PN ---
<Kristi Blair - Last Filed: 12/28/17 07:17> Subjective - Date & Time of Evaluation Date of Evaluation: 12/28/17 Time of Evaluation: 06:00 - Subjective Subjective: Medicine Progress Note: Patient is seen and examined at bedside and in no acute distress. Patient has no complaints. Objective - Vital Signs/Intake and Output Vital Signs (last 24 hours): Temp Pulse Resp BP Pulse Ox 98.4 F 70 20 146/78 95 12/27/17 15:15 12/27/17 17:30 12/27/17 15:15 12/27/17 15:15 12/27/17 15:15 - Medications Medications: Current Medications Amlodipine Besylate (Norvasc) 5 mg PO DAILY [facility] Last Admin: 12/27/17 09:14 Dose: 5 mg Calcitriol (Rocaltrol) 0.25 mcg PO DAILY [facility] Last Admin: 12/27/17 09:18 Dose: 0.25 mcg Calcium Acetate (Phoslo) 667 mg PO TIDCC [facility] Last Admin: 12/27/17 17:41 Dose: 667 mg Epoetin Kenneth (Procrit) 10,000 unit IV MWF [facility] Famotidine (Pepcid) 20 mg PO DAILY [facility] Last Admin: 12/27/17 09:14 Dose: 20 mg Ferric Sodium Gluconate Complex (Ferrlecit) 125 mg IVPB DAILY [facility] Stop: 01/03/18 13:01 Last Admin: 12/27/17 09:15 Dose: 125 mg Heparin Sodium (Porcine) (Heparin) 5,000 units SC Q8 [facility] Last Admin: 12/27/17 21:51 Dose: 5,000 units Metoprolol Tartrate (Lopressor) 12.5 mg PO BID [facility] Last Admin: 12/27/17 17:41 Dose: 12.5 mg Rosuvastatin Calcium (Crestor) 2.5 mg PO HS [facility] Last Admin: 12/27/17 21:51 Dose: 2.5 mg - Labs Labs: 12/27/17 07:04 12/27/17 07:04 PT 12.3 SECONDS (9.7-12.2) H 12/25/17 07:15 INR 1.1 12/25/17 07:15 APTT 36 SECONDS (21-34) H 12/22/17 11:04 - Constitutional Appears: No Acute Distress - Head Exam Head Exam: ATRAUMATIC, NORMAL INSPECTION - Eye Exam Eye Exam: EOMI, Normal appearance - ENT Exam ENT Exam: Mucous Membranes Moist - Respiratory Exam Respiratory Exam: Clear to Ausculation Bilateral, NORMAL BREATHING PATTERN - Cardiovascular Exam Cardiovascular Exam: REGULAR RHYTHM, +S1, +S2 - GI/Abdominal Exam GI & Abdominal Exam: Soft, Normal Bowel Sounds. absent: Tenderness - Extremities Exam Extremities Exam: Normal Inspection - Neurological Exam Neurological Exam: Alert, Awake, Oriented x3 - Psychiatric Exam Psychiatric exam: Normal Affect Assessment and Plan - Assessment and Plan (Free Text) Assessment: BUCKY on CKD creatinine elevated in November at pmd's office (Dr. Caceres) Dr. 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 Patient explained the need for dialysis who agrees Dr. Pearl, surgery, consulted- help appreciated -permacath placement today -AVF on 12/29/17 renal u/s: 1. increased echogenicity of the b/l renal parenchymal cortices suggestive for medical renal disease 2. diminutive appearance of the bilateral kidneys which may represent underlying atrophy. 3. bilateral renal cysts CT abd/pelvis without contrast: no urolithiasis or evidence of recently passed genitourinary calculus. No acute abdominal pelvic pathology. Chronic atrophy of the left kidney. b/l renal cysts. prostatomegaly. UA: 2+ protein, 1+ gluc, 1+ blood urine osm: 301, protein 368, sodium 101 urine random creatinine 105.3 % sat: 22 ferritin: 102 hep panel- hep C antibody pos HIV (-) SPEP: suggestive of acute inflammation pattern with elevation of acute phase proteins PTH LE Edema probably 2/2 ckd Cxray: no active disease LE venous dopplers negative pulses 2+ as per Dr. Morin added Lasix 40mg po daily Echo (12/22): LVEF 61, left ventricle is normal size. borderline concentric left ventricular hypertrophy. normal lv segmental wall motion. transmitral doppler flow pattern in grade II pseudonormal filling dynamics Hep C Antibody Positive f/u Hep C viral load HTN continue home med Norvasc to 5mg po daily Lopressor 12.5mg po bid TSH: .28, Free T4: 1.24 HLD continue home med Crestor 2.5 po HS lipid panel: triglycerides 134, cholesterol 119, LDL 57, HDL 27 IGT HgA1C: 6.3 low carb, heart healthy diet Prophylaxis DVT: Heparin 5000 u sc q8h Pepcid 20mg po daily <Walter Alonso H - Last Filed: 12/28/17 10:52> Objective - Vital Signs/Intake and Output Vital Signs (last 24 hours): Temp Pulse Resp BP Pulse Ox 98.1 F 64 20 138/72 96 12/27/17 23:40 12/28/17 07:35 12/27/17 23:40 12/27/17 23:40 12/27/17 23:40 Intake and Output: 12/28/17 12/28/17 06:59 18:59 Intake Total 150 Balance 150 - Medications Medications: Current Medications Amlodipine Besylate (Norvasc) 5 mg PO DAILY [facility] Last Admin: 12/28/17 09:21 Dose: 5 mg Calcitriol (Rocaltrol) 0.25 mcg PO DAILY [facility] Last Admin: 12/28/17 09:21 Dose: 0.25 mcg Calcium Acetate (Phoslo) 667 mg PO TIDCC [facility] Last Admin: 12/28/17 08:14 Dose: 667 mg Epoetin Kenneth (Procrit) 10,000 unit IV MWF [facility] Famotidine (Pepcid) 20 mg PO DAILY [facility] Last Admin: 12/28/17 09:21 Dose: 20 mg Ferric Sodium Gluconate Complex (Ferrlecit) 125 mg IVPB DAILY [facility] Stop: 01/03/18 13:01 Last Admin: 12/28/17 09:20 Dose: 125 mg Heparin Sodium (Porcine) (Heparin) 5,000 units SC Q8 [facility] Last Admin: 12/28/17 05:31 Dose: 5,000 units Metoprolol Tartrate (Lopressor) 12.5 mg PO BID [facility] Last Admin: 12/28/17 09:21 Dose: 12.5 mg Rosuvastatin Calcium (Crestor) 2.5 mg PO HS [facility] Last Admin: 12/27/17 21:51 Dose: 2.5 mg - Labs Labs: 12/28/17 09:17 12/28/17 09:17 PT 12.3 SECONDS (9.7-12.2) H 12/25/17 07:15 INR 1.1 12/25/17 07:15 APTT 36 SECONDS (21-34) H 12/22/17 11:04 Attending/Attestation - Attestation I have personally seen and examined this patient.: Yes I have fully participated in the care of the patient.: Yes I have reviewed all pertinent clinical information, including history, physical exam and plan: Yes Notes (Text): 12/28/17 10:50 Medical attending: Patient was seen and examined by me Agree with the above note by the resident The patient was not in any acute distress. The patient remains pleasantly demented, funny, and pleasant to talk to. Tommorow is pending [facility] creation. thank you Walter Alonso
[2017-12-28] MEDS: Ferric Sodium Gluconat Complex 62.5 mg/5 ml Vial IVPB SCH (09:20)
[2017-12-28 09:25] LABS: BASO % 0.6 % (0.0-2.0); EOS # 0.7 K/uL (0.0-0.7); EOS % 10.6 % (0.0-4.0); HEMOGLOBIN 8.4 g/dL (12.0-18.0); LYMPH # 2.7 K/uL (1.0-4.3); LYMPH % 38.9 % (20.0-40.0); MEAN CELL VOLUME 93.5 fL (80.0-94.0); MEAN CORPUSCULAR HEMOGLOBIN 32.9 pg (27.0-31.0); MEAN CORPUSCULAR HGB CONC 35.2 g/dL (33.0-37.0); MEAN PLATELET VOLUME 8.4 fL (7.2-11.7); MONO # 0.5 K/uL (0.0-0.8); MONO % 7.8 % (0.0-10.0); NEUT # 2.9 K/uL (1.8-7.0); NEUT % 42.1 % (50.0-75.0); NRBC % 0.1 % (0.0-2.0); RBC 2.56 Mil/uL (4.40-5.90); RED CELL DISTRIBUTION WIDTH 13.4 % (11.5-14.5); WHITE BLOOD COUNT 6.9 K/uL (4.8-10.8)
[2017-12-28 09:48] LABS: ALB/GLOB RATIO 0.8 (1.0-2.1); CALCIUM 8.8 mg/dl (8.6-10.4)
--- NOTE | 2017-12-28 10:21 | CP.PCM.PN ---
Subjective - Date & Time of Evaluation Date of Evaluation: 12/28/17 Time of Evaluation: 10:17 - Subjective Subjective: Vascular Surgery Progress Note for Dr. Live This 82M was seen and examined this AM at bedside. No acute events overnight. Denies chest pain or SOB. No new complaints. Objective - Vital Signs/Intake and Output Vital Signs (last 24 hours): Temp Pulse Resp BP Pulse Ox 98.1 F 64 20 138/72 96 12/27/17 23:40 12/28/17 07:35 12/27/17 23:40 12/27/17 23:40 12/27/17 23:40 Intake and Output: 12/28/17 12/28/17 06:59 18:59 Intake Total 150 Balance 150 - Medications Medications: Current Medications Amlodipine Besylate (Norvasc) 5 mg PO DAILY [facility] Last Admin: 12/28/17 09:21 Dose: 5 mg Calcitriol (Rocaltrol) 0.25 mcg PO DAILY [facility] Last Admin: 12/28/17 09:21 Dose: 0.25 mcg Calcium Acetate (Phoslo) 667 mg PO TIDCC [facility] Last Admin: 12/28/17 08:14 Dose: 667 mg Epoetin Kenneth (Procrit) 10,000 unit IV MWF [facility] Famotidine (Pepcid) 20 mg PO DAILY [facility] Last Admin: 12/28/17 09:21 Dose: 20 mg Ferric Sodium Gluconate Complex (Ferrlecit) 125 mg IVPB DAILY [facility] Stop: 01/03/18 13:01 Last Admin: 12/28/17 09:20 Dose: 125 mg Heparin Sodium (Porcine) (Heparin) 5,000 units SC Q8 [facility] Last Admin: 12/28/17 05:31 Dose: 5,000 units Metoprolol Tartrate (Lopressor) 12.5 mg PO BID [facility] Last Admin: 12/28/17 09:21 Dose: 12.5 mg Rosuvastatin Calcium (Crestor) 2.5 mg PO HS [facility] Last Admin: 12/27/17 21:51 Dose: 2.5 mg - Labs Labs: 12/28/17 09:17 12/28/17 09:17 PT 12.3 SECONDS (9.7-12.2) H 12/25/17 07:15 INR 1.1 12/25/17 07:15 APTT 36 SECONDS (21-34) H 12/22/17 11:04 - Constitutional Appears: Non-toxic, No Acute Distress - Head Exam Head Exam: ATRAUMATIC, NORMOCEPHALIC - Respiratory Exam Respiratory Exam: NORMAL BREATHING PATTERN - Cardiovascular Exam Cardiovascular Exam: +S1, +S2 - GI/Abdominal Exam GI & Abdominal Exam: Soft - Extremities Exam Extremities Exam: Normal Inspection - Neurological Exam Neurological Exam: absent: Oriented x3 - Psychiatric Exam Psychiatric exam: Normal Affect, Normal Mood - Skin Skin Exam: Dry Assessment and Plan - Assessment and Plan (Free Text) Assessment: 82M with ESRD OR tomorrow for AVF NPO past midnight IVF D/W Dr. Calos Scott PGY2
[2017-12-28] MEDS: Potassium Chloride 20 mEq ER Tab PO SCH ×2 (12:00→17:38)
[2017-12-28] MEDS: Rosuvastatin Calcium 2.5 mg Tab PO SCH (21:52)
[2017-12-29 07:20] LABS: MEAN CELL VOLUME 92.7 fL (80.0-94.0); MEAN CORPUSCULAR HEMOGLOBIN 32.3 pg (27.0-31.0); MEAN CORPUSCULAR HGB CONC 34.9 g/dL (33.0-37.0); MEAN PLATELET VOLUME 8.7 fL (7.2-11.7); RBC 2.79 Mil/uL (4.40-5.90); RED CELL DISTRIBUTION WIDTH 13.5 % (11.5-14.5); WHITE BLOOD COUNT 9.2 K/uL (4.8-10.8)
[2017-12-29 07:41] LABS: CALCIUM 9.1 mg/dl (8.6-10.4)
[2017-12-29] MEDS ORDERED: Midazolam 2 MG/2 ML VIAL ONE (09:08)
[2017-12-29] MEDS ORDERED: Propofol 10 mg/ml Inj (20 ML) ONE (09:09)
[2017-12-29] MEDS ORDERED: HEPARIN-NS 5,000 UNITS/500 ML 5,000 UNIT/500 ML BAG IV ONE (09:11)
[2017-12-29] MEDS ORDERED: ceFAZolin 1 gm FROZEN Premix 1 GM/50 ML ML IVPB ONE (09:11)
[2017-12-29] MEDS ORDERED: Sodium Chloride 0.9% 500 ML IV ONE (09:55)
[2017-12-29] MEDS: Ferric Sodium Gluconat Complex 62.5 mg/5 ml Vial IVPB SCH ×2 (10:34→17:00)
[2017-12-29] MEDS ORDERED: Papaverine Hydrochloride 30 mg/ml (2ml) ONE (10:39)
--- NOTE | 2017-12-29 11:47 | PCM.SURG1 ---
Surgeon's Initial Post Op Note - Surgeon's Notes Surgeon: Dr. Live Seam Stay Stitcher: PGY1 Pre-Operative Diagnosis: chronic kidney disease Operative Findings: small artery and venous vessels. for details see op note Post-Operative Diagnosis: as above Operation Performed: Arteriovenous fistula formation; Radial Specimen/Specimens Removed: none Estimated Blood Loss: EBL {In ML}: 25 Date of Surgery/Procedure: 12/29/17 Time of Surgery/Procedure: 11:47
--- NOTE | 2017-12-29 12:04 | CP.PCM.PN ---
Subjective - Date & Time of Evaluation Date of Evaluation: 12/29/17 Time of Evaluation: 12:01 - Subjective Subjective: s/p AV F placement now first dialysis went well 12/26 Was stable post dialysis, tolerated well labs acceptable Objective - Vital Signs/Intake and Output Vital Signs (last 24 hours): Temp Pulse Resp BP Pulse Ox 97.2 F L 63 13 150/71 97 12/29/17 11:40 12/29/17 11:40 12/29/17 11:40 12/29/17 11:40 12/29/17 11:40 Intake and Output: 12/29/17 12/29/17 06:59 18:59 Intake Total 0 Balance 0 - Medications Medications: Current Medications Amlodipine Besylate (Norvasc) 5 mg PO DAILY [facility] Last Admin: 12/29/17 10:35 Dose: Not Given Calcitriol (Rocaltrol) 0.25 mcg PO DAILY [facility] Last Admin: 12/29/17 10:35 Dose: Not Given Calcium Acetate (Phoslo) 667 mg PO TIDCC [facility] Last Admin: 12/29/17 11:57 Dose: Not Given Epoetin Kenneth (Procrit) 10,000 unit IV MWF [facility] Famotidine (Pepcid) 20 mg PO DAILY [facility] Last Admin: 12/29/17 10:35 Dose: Not Given Ferric Sodium Gluconate Complex (Ferrlecit) 125 mg IVPB DAILY [facility] Stop: 01/03/18 13:01 Last Admin: 12/29/17 10:34 Dose: Not Given Heparin Sodium (Porcine) (Heparin) 5,000 units SC Q8 [facility] Last Admin: 12/29/17 06:04 Dose: Not Given Metoprolol Tartrate (Lopressor) 12.5 mg PO BID [facility] Last Admin: 12/29/17 10:35 Dose: Not Given Ondansetron HCl (Zofran Inj) 4 mg IVP ONCE PRN PRN Reason: Nausea/Vomiting Stop: 12/29/17 13:44 Rosuvastatin Calcium (Crestor) 2.5 mg PO HS [facility] Last Admin: 12/28/17 21:52 Dose: 2.5 mg - Labs Labs: 12/29/17 06:59 12/29/17 06:59 PT 12.3 SECONDS (9.7-12.2) H 12/25/17 07:15 INR 1.1 12/25/17 07:15 APTT 36 SECONDS (21-34) H 12/22/17 11:04 - Constitutional Appears: No Acute Distress, Chronically Ill - Head Exam Head Exam: NORMAL INSPECTION, NORMOCEPHALIC - Eye Exam Eye Exam: EOMI, Normal appearance - Neck Exam Neck Exam: Normal Inspection. absent: Tenderness - Respiratory Exam Respiratory Exam: Clear to Ausculation Bilateral, NORMAL BREATHING PATTERN - Cardiovascular Exam Cardiovascular Exam: REGULAR RHYTHM, +S1 - GI/Abdominal Exam GI & Abdominal Exam: Soft. absent: Tenderness - Extremities Exam Extremities Exam: Normal Inspection. absent: Tenderness - Neurological Exam Neurological Exam: Alert, CN II-XII Intact - Skin Skin Exam: Dry, Warm Assessment and Plan (1) CKD stage 5 secondary to hypertension Status: Acute (2) CKD (chronic kidney disease) stage 5, GFR less than 15 ml/min Status: Acute (3) Fluid overload Status: Acute (4) Hypertension Status: Acute (5) ESRD (end stage renal disease) Status: Acute - Assessment and Plan (Free Text) Plan: same meds await AV access maturation dialysis today and MWF Will need dialysis placement
--- NOTE | 2017-12-29 14:52 | CP.PCM.PN ---
<Christiana Allen - Last Filed: 12/29/17 17:53> Subjective - Date & Time of Evaluation Date of Evaluation: 12/29/17 Time of Evaluation: 14:52 - Subjective Subjective: Medicine Progress Note for Dr. Cervantes's service Patient was seen and examined at bedside in no acute distress. Patient is s/p av fistula placement and reports having pain at the surgical site, but otherwise denies complaints. Objective - Vital Signs/Intake and Output Vital Signs (last 24 hours): Temp Pulse Resp BP Pulse Ox 97.4 F L 61 12 139/79 99 12/29/17 12:50 12/29/17 12:50 12/29/17 12:50 12/29/17 12:50 12/29/17 12:50 Intake and Output: 12/29/17 12/29/17 06:59 18:59 Intake Total 0 Balance 0 - Medications Medications: Current Medications Amlodipine Besylate (Norvasc) 5 mg PO DAILY [facility] Last Admin: 12/29/17 10:35 Dose: Not Given Calcitriol (Rocaltrol) 0.25 mcg PO DAILY [facility] Last Admin: 12/29/17 10:35 Dose: Not Given Calcium Acetate (Phoslo) 667 mg PO TIDCC [facility] Last Admin: 12/29/17 11:57 Dose: Not Given Epoetin Kenneth (Procrit) 10,000 unit IV MWF [facility] Famotidine (Pepcid) 20 mg PO DAILY [facility] Last Admin: 12/29/17 10:35 Dose: Not Given Ferric Sodium Gluconate Complex (Ferrlecit) 125 mg IVPB DAILY [facility] Stop: 01/03/18 13:01 Last Admin: 12/29/17 10:34 Dose: Not Given Heparin Sodium (Porcine) (Heparin) 5,000 units SC Q8 [facility] Last Admin: 12/29/17 06:04 Dose: Not Given Metoprolol Tartrate (Lopressor) 12.5 mg PO BID [facility] Last Admin: 12/29/17 10:35 Dose: Not Given Rosuvastatin Calcium (Crestor) 2.5 mg PO HS [facility] Last Admin: 12/28/17 21:52 Dose: 2.5 mg - Labs Labs: 12/29/17 06:59 12/29/17 06:59 PT 12.3 SECONDS (9.7-12.2) H 12/25/17 07:15 INR 1.1 12/25/17 07:15 APTT 36 SECONDS (21-34) H 12/22/17 11:04 - Constitutional Appears: No Acute Distress - Head Exam Head Exam: ATRAUMATIC, NORMAL INSPECTION - Eye Exam Eye Exam: EOMI, Normal appearance - ENT Exam ENT Exam: Mucous Membranes Moist - Respiratory Exam Respiratory Exam: Clear to Ausculation Bilateral, NORMAL BREATHING PATTERN. absent: Rales, Rhonchi, Wheezes - Cardiovascular Exam Cardiovascular Exam: REGULAR RHYTHM, +S1, +S2 - GI/Abdominal Exam GI & Abdominal Exam: Soft, Normal Bowel Sounds. absent: Distended, Tenderness - Extremities Exam Extremities Exam: Normal Inspection - Neurological Exam Neurological Exam: Alert, Awake - Psychiatric Exam Psychiatric exam: Normal Affect, Normal Mood - Skin Skin Exam: Dry, Intact, Normal Color, Warm Additional comments: s/p AV fistula- Dressing clean, dry, and intact. Assessment and Plan - Assessment and Plan (Free Text) Plan: BUCKY on CKD *s/p AV fistula placement on 12/29/17 w/Dr. Live Creatinine elevated in November at pmd's office (Dr. Caceres) Dr. 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 Patient explained the need for dialysis and agrees - Pending placement to dialysis center Dr. Live, surgery, consulted- help appreciated - AVF placement on 12/29/17 Renal u/s: 1. increased echogenicity of the b/l renal parenchymal cortices suggestive for medical renal disease 2. diminutive appearance of the bilateral kidneys which may represent underlying atrophy. 3. bilateral renal cysts CT abd/pelvis without contrast: no urolithiasis or evidence of recently passed genitourinary calculus. No acute abdominal pelvic pathology. Chronic atrophy of the left kidney. b/l renal cysts. prostatomegaly. UA: 2+ protein, 1+ gluc, 1+ blood urine osm: 301, protein 368, sodium 101 urine random creatinine 105.3 % sat: 22 ferritin: 102 hep panel- hep C antibody pos HIV (-) SPEP: suggestive of acute inflammation pattern with elevation of acute phase proteins LE Edema probably 2/2 ckd Chest xray: no active disease LE venous dopplers negative pulses 2+ as per Dr. Morin added Lasix 40mg po daily Echo (12/22): LVEF 61, left ventricle is normal size. borderline concentric left ventricular hypertrophy. normal lv segmental wall motion. transmitral doppler flow pattern in grade II pseudonormal filling dynamics Hep C Antibody Positive f/u Hep C viral load HTN Continue home med Norvasc to 5mg po daily Lopressor 12.5mg po bid TSH: .28, Free T4: 1.24 HLD Continue home med Crestor 2.5 po HS lipid panel: triglycerides 134, cholesterol 119, LDL 57, HDL 27 IGT HgA1C: 6.3 low carb, heart healthy diet Prophylaxis DVT: Heparin 5000 u sc q8h Pepcid 20mg po daily <Ganesh Cervantes - Last Filed: 12/29/17 18:29> Objective - Vital Signs/Intake and Output Vital Signs (last 24 hours): Temp Pulse Resp BP Pulse Ox 98 F 80 16 155/93 H 96 12/29/17 15:40 12/29/17 18:00 12/29/17 18:00 12/29/17 18:00 12/29/17 18:00 Intake and Output: 12/29/17 12/29/17 06:59 18:59 Intake Total 0 Balance 0 - Medications Medications: Current Medications Amlodipine Besylate (Norvasc) 5 mg PO DAILY [facility] Last Admin: 12/29/17 10:35 Dose: Not Given Calcitriol (Rocaltrol) 0.25 mcg PO DAILY [facility] Last Admin: 12/29/17 10:35 Dose: Not Given Calcium Acetate (Phoslo) 667 mg PO TIDCC [facility] Last Admin: 12/29/17 11:57 Dose: Not Given Epoetin Kenneth (Procrit) 10,000 unit IV MWF [facility] Last Admin: 12/29/17 17:20 Dose: 10,000 unit Famotidine (Pepcid) 20 mg PO DAILY [facility] Last Admin: 12/29/17 10:35 Dose: Not Given Ferric Sodium Gluconate Complex (Ferrlecit) 125 mg IVPB DAILY [facility] Stop: 01/03/18 13:01 Last Admin: 12/29/17 17:00 Dose: 125 mg Heparin Sodium (Porcine) (Heparin) 5,000 units SC Q8 [facility] Last Admin: 12/29/17 15:00 Dose: Not Given Metoprolol Tartrate (Lopressor) 12.5 mg PO BID [facility] Last Admin: 12/29/17 10:35 Dose: Not Given Rosuvastatin Calcium (Crestor) 2.5 mg PO [facility] Last Admin: 12/28/17 21:52 Dose: 2.5 mg - Labs Labs: 12/29/17 06:59 12/29/17 06:59 PT 12.3 SECONDS (9.7-12.2) H 12/25/17 07:15 INR 1.1 12/25/17 07:15 APTT 36 SECONDS (21-34) H 12/22/17 11:04 Attending/Attestation - Attestation I have personally seen and examined this patient.: Yes I have fully participated in the care of the patient.: Yes I have reviewed all pertinent clinical information, including history, physical exam and plan: Yes Notes (Text): Seen and examined,s/p AV fistula possible discharge tomorrow Out patient dialysis arrangement pending d/w The resident. I agree with the documentation of the assessment and the plan
[2017-12-29] MEDS: Epoetin Alfa 10,000 unit/ml Dialysis IV SCH (17:20)
[2017-12-29] MEDS: Rosuvastatin Calcium 2.5 mg Tab PO SCH (21:49)
--- NOTE | 2017-12-29 23:10 | OP ---
PROCEDURE DATE: 12/29/2017 PREOPERATIVE DIAGNOSIS: Renal failure. POSTOPERATIVE DIAGNOSIS: Renal failure. PROCEDURES CARRIED OUT: Sabino fistula, left wrist. SURGEON: Phu Live Jr., MD HOSPITALITY RECRUITER: Dr. Pizarro. ANESTHESIOLOGIST: Mr. Calle. INDICATIONS: The patient is an elderly man with renal insufficiency who requires dialysis, and previously had a catheter inserted. OPERATIVE FINDINGS: The median cubital vein which could have been our best vein in the arm had clot in it from a previous IV. Nonetheless, just above the spot where we normally do his renal fistula, there was a fairly good vein and an adjacent artery. We then carried out an end-to-side fistula using loupe magnification, heparin anticoagulation. At the end of the procedure, there was good flow through the fistula and the procedure was terminated. The skin was closed with 5-0 nylon sutures. Blood loss from the procedure was 20 mL. Operation carried out was Sabino-type fistula, left wrist. Phu Live Jr., MD
[2017-12-30 07:31] LABS: BASO # 0.1 K/uL (0.0-0.2); BASO % 0.6 % (0.0-2.0); EOS # 0.6 K/uL (0.0-0.7); EOS % 7.5 % (0.0-4.0); LYMPH # 2.8 K/uL (1.0-4.3); LYMPH % 32.8 % (20.0-40.0); MEAN CELL VOLUME 93.4 fL (80.0-94.0); MEAN CORPUSCULAR HEMOGLOBIN 32.5 pg (27.0-31.0); MEAN CORPUSCULAR HGB CONC 34.8 g/dL (33.0-37.0); MEAN PLATELET VOLUME 8.9 fL (7.2-11.7); MONO # 0.9 K/uL (0.0-0.8); MONO % 10.8 % (0.0-10.0); NEUT # 4.1 K/uL (1.8-7.0); NEUT % 48.3 % (50.0-75.0); RBC 2.78 Mil/uL (4.40-5.90); RED CELL DISTRIBUTION WIDTH 13.4 % (11.5-14.5); WHITE BLOOD COUNT 8.5 K/uL (4.8-10.8)
[2017-12-30 07:56] LABS: ALB/GLOB RATIO 0.8 (1.0-2.1); CALCIUM 8.8 mg/dl (8.6-10.4)
[2017-12-30] MEDS: Ferric Sodium Gluconat Complex 62.5 mg/5 ml Vial IVPB SCH (09:46)
--- NOTE | 2017-12-30 10:14 | CP.PCM.PN ---
Subjective - Date & Time of Evaluation Date of Evaluation: 12/30/17 Time of Evaluation: 10:11 - Subjective Subjective: seen and examined s/p avf s/p hd yesterday tolerated well bp acceptable denies any cp/sob/dizziness/n/v/d/rash/fevers/chills/headache/rash Objective - Vital Signs/Intake and Output Vital Signs (last 24 hours): Temp Pulse Resp BP Pulse Ox 98.4 F 67 18 158/70 H 95 12/30/17 07:05 12/30/17 07:05 12/30/17 07:05 12/30/17 07:05 12/30/17 07:05 Intake and Output: 12/30/17 12/30/17 06:59 18:59 Intake Total 300 Balance 300 - Medications Medications: Current Medications Amlodipine Besylate (Norvasc) 5 mg PO DAILY [facility] Last Admin: 12/30/17 09:45 Dose: 5 mg Calcitriol (Rocaltrol) 0.25 mcg PO DAILY [facility] Last Admin: 12/30/17 09:45 Dose: 0.25 mcg Calcium Acetate (Phoslo) 667 mg PO TIDCC [facility] Last Admin: 12/30/17 08:26 Dose: 667 mg Epoetin Kenneth (Procrit) 10,000 unit IV MWF [facility] Last Admin: 12/29/17 17:20 Dose: 10,000 unit Famotidine (Pepcid) 20 mg PO DAILY [facility] Last Admin: 12/30/17 09:45 Dose: 20 mg Ferric Sodium Gluconate Complex (Ferrlecit) 125 mg IVPB DAILY [facility] Stop: 01/03/18 13:01 Last Admin: 12/30/17 09:46 Dose: 125 mg Metoprolol Tartrate (Lopressor) 12.5 mg PO BID [facility] Last Admin: 12/30/17 09:45 Dose: 12.5 mg Rosuvastatin Calcium (Crestor) 2.5 mg PO HS [facility] Last Admin: 12/29/17 21:49 Dose: 2.5 mg - Labs Labs: 12/30/17 07:17 12/30/17 07:17 PT 12.3 SECONDS (9.7-12.2) H 12/25/17 07:15 INR 1.1 12/25/17 07:15 APTT 36 SECONDS (21-34) H 12/22/17 11:04 - Constitutional Appears: Non-toxic, No Acute Distress, Chronically Ill - Head Exam Head Exam: NORMAL INSPECTION, NORMOCEPHALIC - Eye Exam Eye Exam: Normal appearance - ENT Exam ENT Exam: Mucous Membranes Moist, Normal Exam - Neck Exam Neck Exam: Normal Inspection - Respiratory Exam Respiratory Exam: Clear to Ausculation Bilateral, NORMAL BREATHING PATTERN - Cardiovascular Exam Cardiovascular Exam: REGULAR RHYTHM, RRR - GI/Abdominal Exam GI & Abdominal Exam: Distended, Soft, Normal Bowel Sounds - Neurological Exam Neurological Exam: Alert, Awake - Psychiatric Exam Psychiatric exam: Normal Affect, Normal Mood - Skin Skin Exam: Dry, Intact Assessment and Plan (1) Chronic kidney disease Status: Acute (2) Anemia Status: Acute (3) Hypertension Status: Acute (4) Edema Status: Acute (5) CHF (congestive heart failure) Status: Acute - Assessment and Plan (Free Text) Assessment: maintain hd [facility] outpt placement sumaya w/ hd phos acceptable
--- NOTE | 2017-12-30 10:25 | CP.PCM.PN ---
Subjective - Date & Time of Evaluation Date of Evaluation: 12/30/17 Time of Evaluation: 06:40 - Subjective Subjective: Vascular Surgery- Dr. Live Patient seen and examined at bedside this AM. No acute events overnight. LUE dressing C/D/I. No acute complaints Objective - Vital Signs/Intake and Output Vital Signs (last 24 hours): Temp Pulse Resp BP Pulse Ox 98.4 F 67 18 158/70 H 95 12/30/17 07:05 12/30/17 07:05 12/30/17 07:05 12/30/17 07:05 12/30/17 07:05 Intake and Output: 12/30/17 12/30/17 06:59 18:59 Intake Total 300 Balance 300 - Medications Medications: Current Medications Amlodipine Besylate (Norvasc) 5 mg PO DAILY [facility] Last Admin: 12/30/17 09:45 Dose: 5 mg Calcitriol (Rocaltrol) 0.25 mcg PO DAILY [facility] Last Admin: 12/30/17 09:45 Dose: 0.25 mcg Calcium Acetate (Phoslo) 667 mg PO TIDCC [facility] Last Admin: 12/30/17 08:26 Dose: 667 mg Epoetin Kenneth (Procrit) 10,000 unit IV MWF [facility] Last Admin: 12/29/17 17:20 Dose: 10,000 unit Famotidine (Pepcid) 20 mg PO DAILY [facility] Last Admin: 12/30/17 09:45 Dose: 20 mg Ferric Sodium Gluconate Complex (Ferrlecit) 125 mg IVPB DAILY [facility] Stop: 01/03/18 13:01 Last Admin: 12/30/17 09:46 Dose: 125 mg Metoprolol Tartrate (Lopressor) 12.5 mg PO BID [facility] Last Admin: 12/30/17 09:45 Dose: 12.5 mg Rosuvastatin Calcium (Crestor) 2.5 mg PO HS [facility] Last Admin: 12/29/17 21:49 Dose: 2.5 mg - Labs Labs: 12/30/17 07:17 12/30/17 07:17 PT 12.3 SECONDS (9.7-12.2) H 12/25/17 07:15 INR 1.1 12/25/17 07:15 APTT 36 SECONDS (21-34) H 12/22/17 11:04 - Constitutional Appears: Non-toxic, No Acute Distress - Eye Exam Eye Exam: EOMI. absent: Scleral icterus - ENT Exam ENT Exam: Mucous Membranes Moist - Respiratory Exam Respiratory Exam: NORMAL BREATHING PATTERN. absent: Accessory Muscle Use, Respiratory Distress - Cardiovascular Exam Cardiovascular Exam: +S1, +S2. absent: Bradycardia, Tachycardia - GI/Abdominal Exam GI & Abdominal Exam: Soft. absent: Distended, Firm, Guarding, Rigid, Tenderness - Extremities Exam Additional comments: LUE dressing in place. C/D/I - Neurological Exam Neurological Exam: Alert, Awake, Oriented x3 - Skin Skin Exam: Intact, Warm Assessment and Plan - Assessment and Plan (Free Text) Assessment: 82M s/p LUE AVF creating POD#1 Plan: - encourage movement and use of hands - keep dressing on for approximately 5 days - continue to use permacath for HD - no further acute surgical intervention indicated at this time - follow up in office in 1 week w/ Dr. Live - d/w Dr. Calos Pizarro PGY1
--- NOTE | 2017-12-30 16:19 | CP.PCM.PN ---
<Christiana Allen - Last Filed: 12/30/17 16:16> Subjective - Date & Time of Evaluation Date of Evaluation: 12/30/17 Time of Evaluation: 07:30 - Subjective Subjective: Medicine Progress Note for Dr. Cervantes's service Patient was seen and examined at bedside in no acute distress. Patient is s/p av fistula placement, POD#1. He reports having mild pain at the surgical site. Patient denies chest pain, abdominal pain, dyspnea, nausea, vomiting, fevers, headaches. Objective - Vital Signs/Intake and Output Vital Signs (last 24 hours): Temp Pulse Resp BP Pulse Ox 98.4 F 72 18 158/70 H 95 12/30/17 07:05 12/30/17 14:07 12/30/17 07:05 12/30/17 07:05 12/30/17 07:05 Intake and Output: 12/30/17 12/30/17 06:59 18:59 Intake Total 300 720 Output Total 600 Balance 300 120 - Medications Medications: Current Medications Amlodipine Besylate (Norvasc) 5 mg PO DAILY [facility] Last Admin: 12/30/17 09:45 Dose: 5 mg Calcitriol (Rocaltrol) 0.25 mcg PO DAILY [facility] Last Admin: 12/30/17 09:45 Dose: 0.25 mcg Calcium Acetate (Phoslo) 667 mg PO TIDCC [facility] Last Admin: 12/30/17 11:39 Dose: 667 mg Epoetin Kenneth (Procrit) 10,000 unit IV MWF [facility] Last Admin: 12/29/17 17:20 Dose: 10,000 unit Famotidine (Pepcid) 20 mg PO DAILY [facility] Last Admin: 12/30/17 09:45 Dose: 20 mg Ferric Sodium Gluconate Complex (Ferrlecit) 125 mg IVPB DAILY [facility] Stop: 01/03/18 13:01 Last Admin: 12/30/17 09:46 Dose: 125 mg Metoprolol Tartrate (Lopressor) 12.5 mg PO BID [facility] Last Admin: 12/30/17 09:45 Dose: 12.5 mg Rosuvastatin Calcium (Crestor) 2.5 mg PO HS [facility] Last Admin: 12/29/17 21:49 Dose: 2.5 mg - Labs Labs: 12/30/17 07:17 12/30/17 07:17 PT 12.3 SECONDS (9.7-12.2) H 12/25/17 07:15 INR 1.1 12/25/17 07:15 APTT 36 SECONDS (21-34) H 12/22/17 11:04 - Additional Findings Additional findings: - Constitutional Appears: No Acute Distress - Head Exam Head Exam: ATRAUMATIC, NORMAL INSPECTION - Eye Exam Eye Exam: EOMI, Normal appearance - ENT Exam ENT Exam: Mucous Membranes Moist - Respiratory Exam Respiratory Exam: Clear to Ausculation Bilateral, NORMAL BREATHING PATTERN. absent: Rales, Rhonchi, Wheezes - Cardiovascular Exam Cardiovascular Exam: REGULAR RHYTHM, +S1, +S2 - GI/Abdominal Exam GI & Abdominal Exam: Soft, Normal Bowel Sounds. absent: Distended, Tenderness - Extremities Exam Extremities Exam: LUE- s/p AV fistula placement. dressing clean, dry, and intact. - Neurological Exam Neurological Exam: Alert, Awake - Psychiatric Exam Psychiatric exam: Normal Affect, Normal Mood - Skin Skin Exam: Dry, Intact, Normal Color, Warm Additional comments: s/p AV fistula- Dressing clean, dry, and intact. Assessment and Plan - Assessment and Plan (Free Text) Plan: BUCKY on CKD *s/p AV fistula placement on 12/29/17 w/Dr. Live Creatinine elevated in November at pmd's office (Dr. Caceres) Dr. 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 Patient explained the need for dialysis and agrees - Pending placement to dialysis center Dr. Live, surgery, consulted- help appreciated - AVF placement on 12/29/17 Renal u/s: 1. increased echogenicity of the b/l renal parenchymal cortices suggestive for medical renal disease 2. diminutive appearance of the bilateral kidneys which may represent underlying atrophy. 3. bilateral renal cysts CT abd/pelvis without contrast: no urolithiasis or evidence of recently passed genitourinary calculus. No acute abdominal pelvic pathology. Chronic atrophy of the left kidney. b/l renal cysts. prostatomegaly. UA: 2+ protein, 1+ gluc, 1+ blood urine osm: 301, protein 368, sodium 101 urine random creatinine 105.3 % sat: 22 ferritin: 102 hep panel- hep C antibody pos HIV (-) SPEP: suggestive of acute inflammation pattern with elevation of acute phase proteins LE Edema probably 2/2 ckd Chest xray: no active disease LE venous dopplers negative pulses 2+ as per Dr. Morin added Lasix 40mg po daily Echo (12/22): LVEF 61, left ventricle is normal size. borderline concentric left ventricular hypertrophy. normal lv segmental wall motion. transmitral doppler flow pattern in grade II pseudonormal filling dynamics Hep C Antibody Positive f/u Hep C viral load HTN Continue home med Norvasc to 5mg po daily Lopressor 12.5mg po bid TSH: .28, Free T4: 1.24 HLD Continue home med Crestor 2.5 po HS lipid panel: triglycerides 134, cholesterol 119, LDL 57, HDL 27 IGT HgA1C: 6.3 low carb, heart healthy diet Prophylaxis DVT: Heparin 5000 u sc q8h Pepcid 20mg po daily PT/OT Disposition: Patient waiting for placement at dialysis center. Patient has received 2 sessions of dialysis, requires 3rd session before discharge and outpatient dialysis. <Ganesh Cervantes - Last Filed: 12/31/17 16:10> Objective - Vital Signs/Intake and Output Vital Signs (last 24 hours): Temp Pulse Resp BP Pulse Ox 98.1 F 75 20 147/76 96 12/31/17 07:00 12/31/17 07:50 12/31/17 07:00 12/31/17 07:00 12/31/17 07:00 Intake and Output: 12/31/17 12/31/17 06:59 18:59 Intake Total 300 Output Total 400 Balance -100 - Medications Medications: Current Medications Amlodipine Besylate (Norvasc) 5 mg PO DAILY [facility] Last Admin: 12/31/17 10:25 Dose: 5 mg Calcitriol (Rocaltrol) 0.25 mcg PO DAILY [facility] Last Admin: 12/31/17 10:25 Dose: 0.25 mcg Calcium Acetate (Phoslo) 667 mg PO TIDCC [facility] Last Admin: 12/31/17 08:42 Dose: 667 mg Epoetin Kenneth (Procrit) 10,000 unit IV MWF [facility] Last Admin: 12/31/17 15:49 Dose: 10,000 unit Famotidine (Pepcid) 20 mg PO DAILY [facility] Last Admin: 12/31/17 10:25 Dose: 20 mg Ferric Sodium Gluconate Complex (Ferrlecit) 125 mg IVPB DAILY [facility] Stop: 01/03/18 13:01 Last Admin: 12/31/17 10:24 Dose: 125 mg Heparin Sodium (Porcine) (Heparin) 5,000 units SC Q8H [facility] Last Admin: 12/31/17 06:45 Dose: 5,000 units Metoprolol Tartrate (Lopressor) 12.5 mg PO BID [facility] Last Admin: 12/31/17 10:25 Dose: 12.5 mg Rosuvastatin Calcium (Crestor) 2.5 mg PO HS [facility] Last Admin: 12/30/17 21:23 Dose: 2.5 mg - Labs Labs: 12/31/17 07:22 12/31/17 07:22 PT 12.3 SECONDS (9.7-12.2) H 12/25/17 07:15 INR 1.1 12/25/17 07:15 APTT 36 SECONDS (21-34) H 12/22/17 11:04 Attending/Attestation - Attestation I have personally seen and examined this patient.: Yes I have fully participated in the care of the patient.: Yes I have reviewed all pertinent clinical information, including history, physical exam and plan: Yes Notes (Text): Seen and examined by me. Patient has no complain. Feels good.lying on bed comfortable 1.ESRD on HD 2.S/p avf 3.Hep c Ab positive,Hep C Viral load undetectable d/w resident and CW His 3rd dialysis tomorrow Discharge plan discussed I agree with the resident assessment and the plan
[2017-12-30] MEDS: Rosuvastatin Calcium 2.5 mg Tab PO SCH (21:23)
[2017-12-31 07:45] LABS: BASO # 0.1 K/uL (0.0-0.2); BASO % 0.9 % (0.0-2.0); EOS # 0.9 K/uL (0.0-0.7); EOS % 10.5 % (0.0-4.0); HEMOGLOBIN 9.3 g/dL (12.0-18.0); LYMPH # 2.6 K/uL (1.0-4.3); LYMPH % 29.9 % (20.0-40.0); MEAN CELL VOLUME 93.9 fL (80.0-94.0); MEAN CORPUSCULAR HEMOGLOBIN 32.8 pg (27.0-31.0); MEAN CORPUSCULAR HGB CONC 34.9 g/dL (33.0-37.0); MEAN PLATELET VOLUME 8.8 fL (7.2-11.7); MONO # 0.8 K/uL (0.0-0.8); MONO % 9.7 % (0.0-10.0); NEUT # 4.2 K/uL (1.8-7.0); RBC 2.84 Mil/uL (4.40-5.90); RED CELL DISTRIBUTION WIDTH 13.8 % (11.5-14.5); WHITE BLOOD COUNT 8.6 K/uL (4.8-10.8)
[2017-12-31 07:50] LABS: ALB/GLOB RATIO 0.8 (1.0-2.1); ALBUMIN 2.9 g/dL (3.5-5.0); CALCIUM 8.9 mg/dl (8.6-10.4)
[2017-12-31] MEDS: Ferric Sodium Gluconat Complex 62.5 mg/5 ml Vial IVPB SCH (10:24)
--- NOTE | 2017-12-31 12:50 | CP.PCM.PN ---
Subjective - Date & Time of Evaluation Date of Evaluation: 12/31/17 Time of Evaluation: 12:49 - Subjective Subjective: HD today feels better with HD no interval evens no chest pain no sob no nausea no cough no headache no rash no fever no foot pain Objective - Vital Signs/Intake and Output Vital Signs (last 24 hours): Temp Pulse Resp BP Pulse Ox 98.1 F 64 20 147/76 96 12/31/17 07:00 12/31/17 07:00 12/31/17 07:00 12/31/17 07:00 12/31/17 07:00 Intake and Output: 12/31/17 12/31/17 06:59 18:59 Intake Total 300 Output Total 400 Balance -100 - Medications Medications: Current Medications Amlodipine Besylate (Norvasc) 5 mg PO DAILY [facility] Last Admin: 12/31/17 10:25 Dose: 5 mg Calcitriol (Rocaltrol) 0.25 mcg PO DAILY [facility] Last Admin: 12/31/17 10:25 Dose: 0.25 mcg Calcium Acetate (Phoslo) 667 mg PO TIDCC [facility] Last Admin: 12/31/17 08:42 Dose: 667 mg Epoetin Kenneth (Procrit) 10,000 unit IV MWF [facility] Last Admin: 12/29/17 17:20 Dose: 10,000 unit Famotidine (Pepcid) 20 mg PO DAILY [facility] Last Admin: 12/31/17 10:25 Dose: 20 mg Ferric Sodium Gluconate Complex (Ferrlecit) 125 mg IVPB DAILY [facility] Stop: 01/03/18 13:01 Last Admin: 12/31/17 10:24 Dose: 125 mg Heparin Sodium (Porcine) (Heparin) 5,000 units SC Q8H [facility] Last Admin: 12/31/17 06:45 Dose: 5,000 units Metoprolol Tartrate (Lopressor) 12.5 mg PO BID [facility] Last Admin: 12/31/17 10:25 Dose: 12.5 mg Rosuvastatin Calcium (Crestor) 2.5 mg PO HS [facility] Last Admin: 12/30/17 21:23 Dose: 2.5 mg - Labs Labs: 12/31/17 07:22 12/31/17 07:22 PT 12.3 SECONDS (9.7-12.2) H 12/25/17 07:15 INR 1.1 12/25/17 07:15 APTT 36 SECONDS (21-34) H 12/22/17 11:04 - Constitutional Appears: No Acute Distress, Chronically Ill - Head Exam Head Exam: ATRAUMATIC, NORMAL INSPECTION - Eye Exam Eye Exam: EOMI - ENT Exam ENT Exam: Mucous Membranes Moist - Neck Exam Neck Exam: Full ROM. absent: Lymphadenopathy - Respiratory Exam Respiratory Exam: absent: Accessory Muscle Use, Respiratory Distress - Cardiovascular Exam Cardiovascular Exam: REGULAR RHYTHM. absent: Rubs - GI/Abdominal Exam GI & Abdominal Exam: Soft. absent: Tenderness - Extremities Exam Extremities Exam: absent: Pedal Edema Assessment and Plan - Assessment and Plan (Free Text) Assessment: await outpatient HD disposition HD today stable from Renal
--- NOTE | 2017-12-31 13:21 | CP.PCM.PN ---
<Christiana Allen - Last Filed: 12/31/17 14:56> Subjective - Date & Time of Evaluation Date of Evaluation: 12/31/17 Time of Evaluation: 13:18 - Subjective Subjective: Medicine progress note for Dr. Cervantes's service Patient was seen and examined at bedside in no acute distress. Patient states he no longer has pain at his surgical site. Patient denies chest pain, abdominal pain, dyspnea, nausea, vomiting, fevers, headaches. Objective - Vital Signs/Intake and Output Vital Signs (last 24 hours): Temp Pulse Resp BP Pulse Ox 98.1 F 64 20 147/76 96 12/31/17 07:00 12/31/17 07:00 12/31/17 07:00 12/31/17 07:00 12/31/17 07:00 Intake and Output: 12/31/17 12/31/17 06:59 18:59 Intake Total 300 Output Total 400 Balance -100 - Medications Medications: Current Medications Amlodipine Besylate (Norvasc) 5 mg PO DAILY [facility] Last Admin: 12/31/17 10:25 Dose: 5 mg Calcitriol (Rocaltrol) 0.25 mcg PO DAILY [facility] Last Admin: 12/31/17 10:25 Dose: 0.25 mcg Calcium Acetate (Phoslo) 667 mg PO TIDCC [facility] Last Admin: 12/31/17 08:42 Dose: 667 mg Epoetin Kenneth (Procrit) 10,000 unit IV MWF [facility] Last Admin: 12/29/17 17:20 Dose: 10,000 unit Famotidine (Pepcid) 20 mg PO DAILY [facility] Last Admin: 12/31/17 10:25 Dose: 20 mg Ferric Sodium Gluconate Complex (Ferrlecit) 125 mg IVPB DAILY [facility] Stop: 01/03/18 13:01 Last Admin: 12/31/17 10:24 Dose: 125 mg Heparin Sodium (Porcine) (Heparin) 5,000 units SC Q8H [facility] Last Admin: 12/31/17 06:45 Dose: 5,000 units Metoprolol Tartrate (Lopressor) 12.5 mg PO BID [facility] Last Admin: 12/31/17 10:25 Dose: 12.5 mg Rosuvastatin Calcium (Crestor) 2.5 mg PO HS [facility] Last Admin: 12/30/17 21:23 Dose: 2.5 mg - Labs Labs: 12/31/17 07:22 12/31/17 07:22 PT 12.3 SECONDS (9.7-12.2) H 12/25/17 07:15 INR 1.1 12/25/17 07:15 APTT 36 SECONDS (21-34) H 12/22/17 11:04 - Additional Findings Additional findings: - Constitutional Appears: No Acute Distress - Head Exam Head Exam: ATRAUMATIC, NORMAL INSPECTION - Eye Exam Eye Exam: EOMI, Normal appearance - ENT Exam ENT Exam: Mucous Membranes Moist - Respiratory Exam Respiratory Exam: Clear to Ausculation Bilateral, NORMAL BREATHING PATTERN. absent: Rales, Rhonchi, Wheezes - Cardiovascular Exam Cardiovascular Exam: REGULAR RHYTHM, +S1, +S2 - GI/Abdominal Exam GI & Abdominal Exam: Soft, Normal Bowel Sounds. absent: Distended, Tenderness - Extremities Exam Extremities Exam: LUE- s/p AV fistula placement. dressing clean, dry, and intact. - Neurological Exam Neurological Exam: Alert, Awake - Psychiatric Exam Psychiatric exam: Normal Affect, Normal Mood - Skin Skin Exam: Dry, Intact, Normal Color, Warm Additional comments: s/p AV fistula- Dressing clean, dry, and intact. Assessment and Plan - Assessment and Plan (Free Text) Plan: BUCKY on CKD *s/p AV fistula placement on 12/29/17 w/Dr. Live Creatinine elevated in November at pmd's office (Dr. Caceres) Dr. 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 Patient explained the need for dialysis and agrees - Pending placement to dialysis center Dr. Live, surgery, consulted- help appreciated - AVF placement on 12/29/17 Renal u/s: 1. increased echogenicity of the b/l renal parenchymal cortices suggestive for medical renal disease 2. diminutive appearance of the bilateral kidneys which may represent underlying atrophy. 3. bilateral renal cysts CT abd/pelvis without contrast: no urolithiasis or evidence of recently passed genitourinary calculus. No acute abdominal pelvic pathology. Chronic atrophy of the left kidney. b/l renal cysts. prostatomegaly. UA: 2+ protein, 1+ gluc, 1+ blood urine osm: 301, protein 368, sodium 101 urine random creatinine 105.3 % sat: 22 ferritin: 102 hep panel- hep C antibody pos HIV (-) SPEP: suggestive of acute inflammation pattern with elevation of acute phase proteins LE Edema probably 2/2 ckd Chest xray: no active disease LE venous dopplers negative pulses 2+ as per Dr. Morin added Lasix 40mg po daily Echo (12/22): LVEF 61, left ventricle is normal size. borderline concentric left ventricular hypertrophy. normal lv segmental wall motion. transmitral doppler flow pattern in grade II pseudonormal filling dynamics Hep C Antibody Positive f/u Hep C viral load HTN Continue home med Norvasc to 5mg po daily Lopressor 12.5mg po bid TSH: .28, Free T4: 1.24 HLD Continue home med Crestor 2.5 po HS lipid panel: triglycerides 134, cholesterol 119, LDL 57, HDL 27 IGT HgA1C: 6.3 low carb, heart healthy diet Prophylaxis DVT: Heparin 5000 u sc q8h Pepcid 20mg po daily PT/OT Disposition: Case management planning transfer to [facility]. Pending acceptance. <Ganesh Cervantes - Last Filed: 12/31/17 16:13> Objective - Vital Signs/Intake and Output Vital Signs (last 24 hours): Temp Pulse Resp BP Pulse Ox 98.1 F 75 20 147/76 96 12/31/17 07:00 12/31/17 07:50 12/31/17 07:00 12/31/17 07:00 12/31/17 07:00 Intake and Output: 12/31/17 12/31/17 06:59 18:59 Intake Total 300 Output Total 400 Balance -100 - Medications Medications: Current Medications Amlodipine Besylate (Norvasc) 5 mg PO DAILY [facility] Last Admin: 12/31/17 10:25 Dose: 5 mg Calcitriol (Rocaltrol) 0.25 mcg PO DAILY [facility] Last Admin: 12/31/17 10:25 Dose: 0.25 mcg Calcium Acetate (Phoslo) 667 mg PO TIDCC [facility] Last Admin: 12/31/17 08:42 Dose: 667 mg Epoetin Kenneth (Procrit) 10,000 unit IV MWF [facility] Last Admin: 12/31/17 15:49 Dose: 10,000 unit Famotidine (Pepcid) 20 mg PO DAILY [facility] Last Admin: 12/31/17 10:25 Dose: 20 mg Ferric Sodium Gluconate Complex (Ferrlecit) 125 mg IVPB DAILY [facility] Stop: 01/03/18 13:01 Last Admin: 12/31/17 10:24 Dose: 125 mg Heparin Sodium (Porcine) (Heparin) 5,000 units SC Q8H [facility] Last Admin: 12/31/17 06:45 Dose: 5,000 units Metoprolol Tartrate (Lopressor) 12.5 mg PO BID [facility] Last Admin: 12/31/17 10:25 Dose: 12.5 mg Rosuvastatin Calcium (Crestor) 2.5 mg PO HS [facility] Last Admin: 12/30/17 21:23 Dose: 2.5 mg - Labs Labs: 12/31/17 07:22 12/31/17 07:22 PT 12.3 SECONDS (9.7-12.2) H 12/25/17 07:15 INR 1.1 12/25/17 07:15 APTT 36 SECONDS (21-34) H 12/22/17 11:04 Attending/Attestation - Attestation I have personally seen and examined this patient.: Yes I have fully participated in the care of the patient.: Yes I have reviewed all pertinent clinical information, including history, physical exam and plan: Yes Notes (Text): Seen and examined by me. He is a pleasant male seen ambulating in the floor Going for dialysis this afternoon. D/W resident. CW is planning to d/c to [facility] I agree with the resident's assessment and the plan
[2017-12-31] MEDS: Epoetin Alfa 10,000 unit/ml Dialysis IV SCH (15:49)
[2017-12-31] MEDS: Rosuvastatin Calcium 2.5 mg Tab PO SCH (22:08)
--- NOTE | 2018-01-01 06:59 | CP.PCM.PN ---
<Christiana Allen - Last Filed: 01/01/18 11:33> Subjective - Date & Time of Evaluation Date of Evaluation: 01/01/18 Time of Evaluation: 06:59 - Subjective Subjective: Medicine progress note for Dr. Cervantes's service Patient was seen and examined at bedside in no acute distress. Patient reports feeling well, has no complaints. Patient denies patrick at the AV fistula site. Patient denies chest pain, abdominal pain, dyspnea, nausea, vomiting, fevers, headaches, leg pain/swelling. Objective - Vital Signs/Intake and Output Vital Signs (last 24 hours): Temp Pulse Resp BP Pulse Ox 97.8 F 65 20 139/72 96 01/01/18 04:00 01/01/18 04:00 01/01/18 04:00 01/01/18 04:00 01/01/18 04:00 Intake and Output: 12/31/17 01/01/18 18:59 06:59 Intake Total 280 Output Total 400 Balance -120 - Medications Medications: Current Medications Amlodipine Besylate (Norvasc) 5 mg PO DAILY [facility] Last Admin: 12/31/17 10:25 Dose: 5 mg Calcitriol (Rocaltrol) 0.25 mcg PO DAILY [facility] Last Admin: 12/31/17 10:25 Dose: 0.25 mcg Calcium Acetate (Phoslo) 667 mg PO TIDCC [facility] Last Admin: 12/31/17 17:00 Dose: Not Given Epoetin Kenneth (Procrit) 10,000 unit IV MWF [facility] Last Admin: 12/31/17 15:49 Dose: 10,000 unit Famotidine (Pepcid) 20 mg PO DAILY [facility] Last Admin: 12/31/17 10:25 Dose: 20 mg Ferric Sodium Gluconate Complex (Ferrlecit) 125 mg IVPB DAILY [facility] Stop: 01/03/18 13:01 Last Admin: 12/31/17 10:24 Dose: 125 mg Heparin Sodium (Porcine) (Heparin) 5,000 units SC Q8H [facility] Last Admin: 01/01/18 06:47 Dose: 5,000 units Metoprolol Tartrate (Lopressor) 12.5 mg PO BID [facility] Last Admin: 12/31/17 18:59 Dose: 12.5 mg Rosuvastatin Calcium (Crestor) 2.5 mg PO HS [facility] Last Admin: 12/31/17 22:08 Dose: 2.5 mg - Labs Labs: 12/31/17 07:22 12/31/17 07:22 PT 12.3 SECONDS (9.7-12.2) H 12/25/17 07:15 INR 1.1 12/25/17 07:15 APTT 36 SECONDS (21-34) H 12/22/17 11:04 - Additional Findings Additional findings: - Constitutional Appears: No Acute Distress - Head Exam Head Exam: ATRAUMATIC, NORMAL INSPECTION - Eye Exam Eye Exam: EOMI, Normal appearance - ENT Exam ENT Exam: Mucous Membranes Moist - Respiratory Exam Respiratory Exam: Clear to Ausculation Bilateral, NORMAL BREATHING PATTERN. absent: Rales, Rhonchi, Wheezes - Cardiovascular Exam Cardiovascular Exam: REGULAR RHYTHM, +S1, +S2 - GI/Abdominal Exam GI & Abdominal Exam: Soft, Normal Bowel Sounds. absent: Distended, Tenderness - Extremities Exam Extremities Exam: LUE- s/p AV fistula placement. dressing clean, dry, and intact. - Neurological Exam Neurological Exam: Alert, Awake - Psychiatric Exam Psychiatric exam: Normal Affect, Normal Mood - Skin Skin Exam: Dry, Intact, Normal Color, Warm Additional comments: s/p AV fistula- Dressing clean, dry, and intact. Assessment and Plan - Assessment and Plan (Free Text) Plan: BUCKY on CKD *s/p AV fistula placement on 12/29/17 w/Dr. Live Creatinine elevated in November at pmd's office (Dr. Caceres) Dr. 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 Patient explained the need for dialysis and agrees - Pending placement to dialysis center Dr. Live, surgery, consulted- help appreciated - AVF placement on 12/29/17 Renal u/s: 1. increased echogenicity of the b/l renal parenchymal cortices suggestive for medical renal disease 2. diminutive appearance of the bilateral kidneys which may represent underlying atrophy. 3. bilateral renal cysts CT abd/pelvis without contrast: no urolithiasis or evidence of recently passed genitourinary calculus. No acute abdominal pelvic pathology. Chronic atrophy of the left kidney. b/l renal cysts. prostatomegaly. UA: 2+ protein, 1+ gluc, 1+ blood urine osm: 301, protein 368, sodium 101 urine random creatinine 105.3 % sat: 22 ferritin: 102 hep panel- hep C antibody pos HIV (-) SPEP: suggestive of acute inflammation pattern with elevation of acute phase proteins LE Edema probably 2/2 ckd Chest xray: no active disease LE venous dopplers negative pulses 2+ as per Dr. Morin added Lasix 40mg po daily Echo (12/22): LVEF 61, left ventricle is normal size. borderline concentric left ventricular hypertrophy. normal lv segmental wall motion. transmitral doppler flow pattern in grade II pseudonormal filling dynamics Hep C Antibody Positive Hep C viral load: not detected HTN Continue home med Norvasc to 5mg po daily Lopressor 12.5mg po bid TSH: .28, Free T4: 1.24 HLD Continue home med Crestor 2.5 po HS lipid panel: triglycerides 134, cholesterol 119, LDL 57, HDL 27 IGT HgA1C: 6.3 low carb, heart healthy diet Prophylaxis DVT: Heparin 5000 u sc q8h Pepcid 20mg po daily PT/OT * Disposition: Patient is medically clear for discharge. Discharge pending on placement/arrangement for a dialysis center. Case management working on arrangements. <Ganesh Cervantes - Last Filed: 01/02/18 15:49> Objective - Vital Signs/Intake and Output Vital Signs (last 24 hours): Temp Pulse Resp BP Pulse Ox 97.5 F L 71 18 148/62 99 01/02/18 12:50 01/02/18 12:56 01/02/18 12:50 01/02/18 12:50 01/02/18 12:50 Intake and Output: 01/02/18 01/02/18 06:59 18:59 Output Total 550 Balance -550 - Medications Medications: Current Medications Amlodipine Besylate (Norvasc) 5 mg PO DAILY [facility] Last Admin: 01/02/18 13:51 Dose: 5 mg Calcitriol (Rocaltrol) 0.25 mcg PO DAILY [facility] Last Admin: 01/02/18 09:34 Dose: 0.25 mcg Epoetin Kenneth (Procrit) 10,000 unit IV MWF [facility] Last Admin: 01/02/18 10:34 Dose: 10,000 unit Famotidine (Pepcid) 20 mg PO DAILY [facility] Last Admin: 01/02/18 09:34 Dose: 20 mg Ferric Sodium Gluconate Complex (Ferrlecit) 125 mg IVPB DAILY [facility] Stop: 01/03/18 13:01 Last Admin: 01/02/18 10:35 Dose: 125 mg Heparin Sodium (Porcine) (Heparin) 5,000 units SC Q8H [facility] Last Admin: 01/02/18 08:23 Dose: 5,000 units Metoprolol Tartrate (Lopressor) 12.5 mg PO BID [facility] Last Admin: 01/02/18 09:37 Dose: Not Given Rosuvastatin Calcium (Crestor) 2.5 mg PO HS [facility] Last Admin: 01/01/18 21:26 Dose: 2.5 mg - Labs Labs: 01/01/18 07:13 01/01/18 07:13 PT 12.3 SECONDS (9.7-12.2) H 12/25/17 07:15 INR 1.1 12/25/17 07:15 APTT 36 SECONDS (21-34) H 12/22/17 11:04 Attending/Attestation - Attestation I have personally seen and examined this patient.: Yes I have fully participated in the care of the patient.: Yes I have reviewed all pertinent clinical information, including history, physical exam and plan: Yes Notes (Text): Seen and examined,no complain. ambulating without shortness of breath and chest pain On examination he has bilateral rales Spoked to Patient son few days ago. Patient will be discharged to rehab. His son is planning to send him to [facility] soon. Patient wants to go to [facility] d/w resident and I agree with the resident's assessment and the plan
[2018-01-01 07:39] LABS: BASO # 0.1 K/uL (0.0-0.2); BASO % 0.8 % (0.0-2.0); EOS # 0.9 K/uL (0.0-0.7); EOS % 9.8 % (0.0-4.0); HEMOGLOBIN 9.2 g/dL (12.0-18.0); LYMPH # 2.8 K/uL (1.0-4.3); LYMPH % 31.6 % (20.0-40.0); MEAN CELL VOLUME 94.1 fL (80.0-94.0); MEAN CORPUSCULAR HEMOGLOBIN 33.4 pg (27.0-31.0); MEAN CORPUSCULAR HGB CONC 35.5 g/dL (33.0-37.0); MEAN PLATELET VOLUME 8.8 fL (7.2-11.7); MONO % 10.9 % (0.0-10.0); NEUT # 4.1 K/uL (1.8-7.0); NEUT % 46.9 % (50.0-75.0); NRBC % 0.7 % (0.0-2.0); RBC 2.76 Mil/uL (4.40-5.90); RED CELL DISTRIBUTION WIDTH 13.8 % (11.5-14.5); WHITE BLOOD COUNT 8.9 K/uL (4.8-10.8)
[2018-01-01 08:05] LABS: ALB/GLOB RATIO 0.8 (1.0-2.1); ALBUMIN 2.9 g/dL (3.5-5.0); CALCIUM 8.8 mg/dl (8.6-10.4)
[2018-01-01] MEDS: Ferric Sodium Gluconat Complex 62.5 mg/5 ml Vial IVPB SCH (09:39)
--- NOTE | 2018-01-01 09:55 | CP.PCM.PN ---
Subjective - Date & Time of Evaluation Date of Evaluation: 01/01/18 Time of Evaluation: 09:52 - Subjective Subjective: alert; feels better no n, v, f, chills, SOB stable dialysis 12/31 av f placed- with bruit Objective - Vital Signs/Intake and Output Vital Signs (last 24 hours): Temp Pulse Resp BP Pulse Ox 98.1 F 56 L 20 127/75 94 L 01/01/18 07:25 01/01/18 07:25 01/01/18 07:25 01/01/18 07:25 01/01/18 07:25 - Medications Medications: Current Medications Amlodipine Besylate (Norvasc) 5 mg PO DAILY REPLACED BY [facility] Last Admin: 01/01/18 09:39 Dose: 5 mg Calcitriol (Rocaltrol) 0.25 mcg PO DAILY REPLACED BY [facility] Last Admin: 01/01/18 09:39 Dose: 0.25 mcg Calcium Acetate (Phoslo) 667 mg PO TIDCC REPLACED BY [facility] Last Admin: 01/01/18 08:38 Dose: 667 mg Epoetin Kenneth (Procrit) 10,000 unit IV MWF REPLACED BY [facility] Last Admin: 12/31/17 15:49 Dose: 10,000 unit Famotidine (Pepcid) 20 mg PO DAILY REPLACED BY [facility] Last Admin: 01/01/18 09:39 Dose: 20 mg Ferric Sodium Gluconate Complex (Ferrlecit) 125 mg IVPB DAILY REPLACED BY [facility] Stop: 01/03/18 13:01 Last Admin: 01/01/18 09:39 Dose: 125 mg Heparin Sodium (Porcine) (Heparin) 5,000 units SC Q8H REPLACED BY [facility] Last Admin: 01/01/18 06:47 Dose: 5,000 units Metoprolol Tartrate (Lopressor) 12.5 mg PO BID REPLACED BY [facility] Last Admin: 01/01/18 09:39 Dose: 12.5 mg Rosuvastatin Calcium (Crestor) 2.5 mg PO HS REPLACED BY [facility] Last Admin: 12/31/17 22:08 Dose: 2.5 mg - Labs Labs: 01/01/18 07:13 01/01/18 07:13 PT 12.3 SECONDS (9.7-12.2) H 12/25/17 07:15 INR 1.1 12/25/17 07:15 APTT 36 SECONDS (21-34) H 05/14/18 11:04 - Constitutional Appears: No Acute Distress, Chronically Ill - Head Exam Head Exam: ATRAUMATIC, NORMAL INSPECTION - Eye Exam Eye Exam: EOMI, Normal appearance - Neck Exam Neck Exam: Normal Inspection. absent: Tenderness - Respiratory Exam Respiratory Exam: Clear to Ausculation Bilateral, NORMAL BREATHING PATTERN - Cardiovascular Exam Cardiovascular Exam: REGULAR RHYTHM, +S1 - GI/Abdominal Exam GI & Abdominal Exam: Soft. absent: Tenderness - Extremities Exam Extremities Exam: Normal Inspection. absent: Tenderness - Neurological Exam Neurological Exam: Awake, CN II-XII Intact - Skin Skin Exam: Dry, Warm Assessment and Plan (1) CKD stage 5 secondary to hypertension Status: Acute (2) CKD (chronic kidney disease) stage 5, GFR less than 15 ml/min Status: Acute (3) Fluid overload Status: Acute (4) Hypertension Status: Acute (5) ESRD (end stage renal disease) Status: Acute - Assessment and Plan (Free Text) Plan: dialysis MWF await AV f maturation placement for outpt HD in progress
[2018-01-01] MEDS: Rosuvastatin Calcium 2.5 mg Tab PO SCH (21:26)
--- NOTE | 2018-01-02 07:17 | CP.PCM.PN ---
<Kristi Blair - Last Filed: 01/02/18 14:19> Subjective - Date & Time of Evaluation Date of Evaluation: 01/02/18 Time of Evaluation: 07:00 - Subjective Subjective: Medicine Progress Note: Patient was seen and examined at bedside in the AM. Per nurse no acute events overnight. Patient reports feeling well, has no complaints. Patient denies chest pain, abdominal pain, dyspnea, nausea, vomiting, fevers, or headaches. Objective - Vital Signs/Intake and Output Vital Signs (last 24 hours): Temp Pulse Resp BP Pulse Ox 98.2 F 70 20 132/72 97 01/01/18 23:36 01/01/18 23:36 01/01/18 23:36 01/01/18 23:36 01/01/18 23:36 Intake and Output: 01/02/18 01/02/18 06:59 18:59 Output Total 550 Balance -550 - Medications Medications: Current Medications Amlodipine Besylate (Norvasc) 5 mg PO DAILY [facility] Last Admin: 01/01/18 09:39 Dose: 5 mg Calcitriol (Rocaltrol) 0.25 mcg PO DAILY [facility] Last Admin: 01/01/18 09:39 Dose: 0.25 mcg Calcium Acetate (Phoslo) 667 mg PO TIDCC [facility] Last Admin: 01/01/18 16:30 Dose: 667 mg Epoetin Kenneth (Procrit) 10,000 unit IV MWF [facility] Last Admin: 12/31/17 15:49 Dose: 10,000 unit Famotidine (Pepcid) 20 mg PO DAILY [facility] Last Admin: 01/01/18 09:39 Dose: 20 mg Ferric Sodium Gluconate Complex (Ferrlecit) 125 mg IVPB DAILY [facility] Stop: 01/03/18 13:01 Last Admin: 01/01/18 09:39 Dose: 125 mg Heparin Sodium (Porcine) (Heparin) 5,000 units SC Q8H [facility] Last Admin: 01/02/18 00:14 Dose: 5,000 units Metoprolol Tartrate (Lopressor) 12.5 mg PO BID [facility] Last Admin: 01/01/18 18:24 Dose: 12.5 mg Rosuvastatin Calcium (Crestor) 2.5 mg PO HS [facility] Last Admin: 01/01/18 21:26 Dose: 2.5 mg - Labs Labs: 01/01/18 07:13 01/01/18 07:13 PT 12.3 SECONDS (9.7-12.2) H 12/25/17 07:15 INR 1.1 12/25/17 07:15 APTT 36 SECONDS (21-34) H 12/22/17 11:04 - Constitutional Appears: No Acute Distress - Head Exam Head Exam: ATRAUMATIC, NORMAL INSPECTION - Eye Exam Eye Exam: EOMI, Normal appearance - ENT Exam ENT Exam: Mucous Membranes Moist - Respiratory Exam Respiratory Exam: Clear to Ausculation Bilateral, NORMAL BREATHING PATTERN - Cardiovascular Exam Cardiovascular Exam: REGULAR RHYTHM, +S1, +S2 - GI/Abdominal Exam GI & Abdominal Exam: Soft, Normal Bowel Sounds. absent: Tenderness - Extremities Exam Additional comments: LUE- s/p AV fistula placement. dressing clean, dry, and intact. - Neurological Exam Neurological Exam: Alert, Awake - Psychiatric Exam Psychiatric exam: Normal Affect, Normal Mood - Skin Skin Exam: Normal Color Assessment and Plan - Assessment and Plan (Free Text) Assessment: * Disposition: Patient is medically clear for discharge. Spoke with case management patient will be discharged Friday01/05/18 after dialysis. BUCKY on CKD *s/p AV fistula placement on 12/29/17 w/Dr. Live Creatinine elevated in November at pmd's office (Dr. Caceres) Dr. Morin consulted, help appreciated - patient will need BANK ADVISOR, consent obtained from EVANGELISTA Mccord. Patient explained the need for dialysis and agrees - Pending placement to dialysis center Dr. Live, surgery, consulted- help appreciated - AVF placement on 12/29/17 Renal u/s: 1. increased echogenicity of the b/l renal parenchymal cortices suggestive for medical renal disease 2. diminutive appearance of the bilateral kidneys which may represent underlying atrophy. 3. bilateral renal cysts CT abd/pelvis without contrast: no urolithiasis or evidence of recently passed genitourinary calculus. No acute abdominal pelvic pathology. Chronic atrophy of the left kidney. b/l renal cysts. prostatomegaly. UA: 2+ protein, 1+ gluc, 1+ blood urine osm: 301, protein 368, sodium 101 urine random creatinine 105.3 % sat: 22 ferritin: 102 hep panel- hep C antibody pos HIV (-) SPEP: suggestive of acute inflammation pattern with elevation of acute phase proteins LE Edema probably 2/2 ckd Chest xray: no active disease LE venous dopplers negative pulses 2+ as per Dr. Morin added Lasix 40mg po daily Echo (12/22): LVEF 61, left ventricle is normal size. borderline concentric left ventricular hypertrophy. normal lv segmental wall motion. transmitral doppler flow pattern in grade II pseudonormal filling dynamics Hep C Antibody Positive Hep C viral load: not detected HTN Continue home med Norvasc to 5mg po daily Lopressor 12.5mg po bid TSH: .28, Free T4: 1.24 HLD Continue home med Crestor 2.5 po HS lipid panel: triglycerides 134, cholesterol 119, LDL 57, HDL 27 IGT HgA1C: 6.3 low carb, heart healthy diet Prophylaxis DVT: Heparin 5000 u sc q8h Pepcid 20mg po daily PT/OT * Disposition: Patient is medically clear for discharge. Spoke with case management patient will be discharged Friday01/05/18 after dialysis. <Ganesh Cervantes - Last Filed: 01/02/18 16:01> Objective - Vital Signs/Intake and Output Vital Signs (last 24 hours): Temp Pulse Resp BP Pulse Ox 97.5 F L 71 18 148/62 99 01/02/18 12:50 01/02/18 12:56 01/02/18 12:50 01/02/18 12:50 01/02/18 12:50 Intake and Output: 01/02/18 01/02/18 06:59 18:59 Output Total 550 Balance -550 - Medications Medications: Current Medications Amlodipine Besylate (Norvasc) 5 mg PO DAILY [facility] Last Admin: 01/02/18 13:51 Dose: 5 mg Calcitriol (Rocaltrol) 0.25 mcg PO DAILY [facility] Last Admin: 01/02/18 09:34 Dose: 0.25 mcg Epoetin Kenneth (Procrit) 10,000 unit IV MWF [facility] Last Admin: 01/02/18 10:34 Dose: 10,000 unit Famotidine (Pepcid) 20 mg PO DAILY [facility] Last Admin: 01/02/18 09:34 Dose: 20 mg Ferric Sodium Gluconate Complex (Ferrlecit) 125 mg IVPB DAILY [facility] Stop: 01/03/18 13:01 Last Admin: 01/02/18 10:35 Dose: 125 mg Heparin Sodium (Porcine) (Heparin) 5,000 units SC Q8H [facility] Last Admin: 01/02/18 08:23 Dose: 5,000 units Metoprolol Tartrate (Lopressor) 12.5 mg PO BID [facility] Last Admin: 01/02/18 09:37 Dose: Not Given Rosuvastatin Calcium (Crestor) 2.5 mg PO HS [facility] Last Admin: 01/01/18 21:26 Dose: 2.5 mg - Labs Labs: 01/01/18 07:13 01/01/18 07:13 PT 12.3 SECONDS (9.7-12.2) H 12/25/17 07:15 INR 1.1 12/25/17 07:15 APTT 36 SECONDS (21-34) H 12/22/17 11:04 Attending/Attestation - Attestation I have personally seen and examined this patient.: Yes I have fully participated in the care of the patient.: Yes I have reviewed all pertinent clinical information, including history, physical exam and plan: Yes Notes (Text): Seen and examined at dialysis unit. Patient has no complain. 1.ESRD on HD 2.S/p avF Pending discharge d/w resident. I agree with the documentation of the assessment and the plan d/w CW. patient will have dialysis on Friday and leave.
[2018-01-02] MEDS: Epoetin Alfa 10,000 unit/ml Dialysis IV SCH (10:34)
[2018-01-02] MEDS: Ferric Sodium Gluconat Complex 62.5 mg/5 ml Vial IVPB SCH (10:35)
--- NOTE | 2018-01-02 14:28 | CP.PCM.PN ---
Subjective - Date & Time of Evaluation Date of Evaluation: 01/02/18 Time of Evaluation: 14:26 - Subjective Subjective: stable dialysis today phos decreased now AV F with bruit problems with home placement noted Objective - Vital Signs/Intake and Output Vital Signs (last 24 hours): Temp Pulse Resp BP Pulse Ox 97.5 F L 71 18 148/62 99 01/02/18 12:50 01/02/18 12:56 01/02/18 12:50 01/02/18 12:50 01/02/18 12:50 Intake and Output: 01/02/18 01/02/18 06:59 18:59 Output Total 550 Balance -550 - Medications Medications: Current Medications Amlodipine Besylate (Norvasc) 5 mg PO DAILY [facility] Last Admin: 01/02/18 13:51 Dose: 5 mg Calcitriol (Rocaltrol) 0.25 mcg PO DAILY [facility] Last Admin: 01/02/18 09:34 Dose: 0.25 mcg Epoetin Eknneth (Procrit) 10,000 unit IV MWF [facility] Last Admin: 01/02/18 10:34 Dose: 10,000 unit Famotidine (Pepcid) 20 mg PO DAILY [facility] Last Admin: 01/02/18 09:34 Dose: 20 mg Ferric Sodium Gluconate Complex (Ferrlecit) 125 mg IVPB DAILY [facility] Stop: 01/03/18 13:01 Last Admin: 01/02/18 10:35 Dose: 125 mg Heparin Sodium (Porcine) (Heparin) 5,000 units SC Q8H [facility] Last Admin: 01/02/18 08:23 Dose: 5,000 units Metoprolol Tartrate (Lopressor) 12.5 mg PO BID [facility] Last Admin: 01/02/18 09:37 Dose: Not Given Rosuvastatin Calcium (Crestor) 2.5 mg PO HS [facility] Last Admin: 01/01/18 21:26 Dose: 2.5 mg - Labs Labs: 01/01/18 07:13 01/01/18 07:13 PT 12.3 SECONDS (9.7-12.2) H 12/25/17 07:15 INR 1.1 12/25/17 07:15 APTT 36 SECONDS (21-34) H 12/22/17 11:04 - Head Exam Head Exam: NORMAL INSPECTION, NORMOCEPHALIC - Eye Exam Eye Exam: EOMI, Normal appearance - Neck Exam Neck Exam: Normal Inspection. absent: Tenderness - Respiratory Exam Respiratory Exam: Clear to Ausculation Bilateral, NORMAL BREATHING PATTERN - Cardiovascular Exam Cardiovascular Exam: REGULAR RHYTHM, +S1 - GI/Abdominal Exam GI & Abdominal Exam: Soft. absent: Tenderness - Extremities Exam Extremities Exam: Normal Inspection. absent: Tenderness - Neurological Exam Neurological Exam: Alert, CN II-XII Intact - Skin Skin Exam: Dry, Warm Assessment and Plan (1) CKD stage 5 secondary to hypertension Status: Acute (2) CKD (chronic kidney disease) stage 5, GFR less than 15 ml/min Status: Acute (3) Fluid overload Status: Acute (4) Hypertension Status: Acute (5) ESRD (end stage renal disease) Status: Acute - Assessment and Plan (Free Text) Plan: dialysis MWF stop ca acetate home placement if possible
[2018-01-02] MEDS: Rosuvastatin Calcium 2.5 mg Tab PO SCH (22:33)
--- NOTE | 2018-01-03 04:39 | CP.PCM.PN ---
<Christiana Allen - Last Filed: 01/03/18 04:35> Subjective - Date & Time of Evaluation Date of Evaluation: 01/03/18 Time of Evaluation: 04:35 - Subjective Subjective: Medicine progress note for Dr. Cervantes's service Patient was seen and examined at bedside in no acute distress. Patient states he has slight pain in his left UE at the surgical site, but otherwise feels well and has no other complaints. Patient denies chest pain, abdominal pain, dyspnea, nausea, vomiting, fevers, headaches, leg pain/swelling. No acute events overnight. Objective - Vital Signs/Intake and Output Vital Signs (last 24 hours): Temp Pulse Resp BP Pulse Ox 98.8 F 71 20 146/74 98 01/02/18 23:45 01/02/18 23:45 01/02/18 23:45 01/02/18 23:45 01/02/18 23:45 Intake and Output: 01/02/18 01/03/18 18:59 06:59 Intake Total 400 Balance 400 - Medications Medications: Current Medications Amlodipine Besylate (Norvasc) 5 mg PO DAILY [facility] Last Admin: 01/02/18 13:51 Dose: 5 mg Calcitriol (Rocaltrol) 0.25 mcg PO DAILY [facility] Last Admin: 01/02/18 09:34 Dose: 0.25 mcg Epoetin Kenneth (Procrit) 10,000 unit IV MWF [facility] Last Admin: 01/02/18 10:34 Dose: 10,000 unit Famotidine (Pepcid) 20 mg PO DAILY [facility] Last Admin: 01/02/18 09:34 Dose: 20 mg Ferric Sodium Gluconate Complex (Ferrlecit) 125 mg IVPB DAILY [facility] Stop: 01/03/18 13:01 Last Admin: 01/02/18 10:35 Dose: 125 mg Heparin Sodium (Porcine) (Heparin) 5,000 units SC Q8H [facility] Last Admin: 01/02/18 22:45 Dose: 5,000 units Metoprolol Tartrate (Lopressor) 12.5 mg PO BID [facility] Last Admin: 01/02/18 17:39 Dose: 12.5 mg Rosuvastatin Calcium (Crestor) 2.5 mg PO HS [facility] Last Admin: 01/02/18 22:33 Dose: 2.5 mg - Labs Labs: 01/01/18 07:13 01/01/18 07:13 PT 12.3 SECONDS (9.7-12.2) H 12/25/17 07:15 INR 1.1 12/25/17 07:15 APTT 36 SECONDS (21-34) H 12/22/17 11:04 - Additional Findings Additional findings: - Constitutional Appears: No Acute Distress - Head Exam Head Exam: ATRAUMATIC, NORMAL INSPECTION - Eye Exam Eye Exam: EOMI, Normal appearance - ENT Exam ENT Exam: Mucous Membranes Moist - Respiratory Exam Respiratory Exam: Clear to Ausculation Bilateral, NORMAL BREATHING PATTERN - Cardiovascular Exam Cardiovascular Exam: REGULAR RHYTHM, +S1, +S2 - GI/Abdominal Exam GI & Abdominal Exam: Soft, Normal Bowel Sounds. absent: Tenderness - Extremities Exam Additional comments: LUE- s/p AV fistula placement. dressing clean, dry, and intact. - Neurological Exam Neurological Exam: Alert, Awake - Psychiatric Exam Psychiatric exam: Normal Affect, Normal Mood - Skin Skin Exam: Normal Color Assessment and Plan - Assessment and Plan (Free Text) Plan: * Disposition: Patient is medically clear for discharge. Spoke with case management patient will be discharged Friday01/05/18 after dialysis. BUCKY on CKD *s/p AV fistula placement on 12/29/17 w/Dr. Live Creatinine elevated in November at pmd's office (Dr. Caceres) Dr. 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 Patient explained the need for dialysis and agrees - Pending placement to dialysis center Dr. Live, surgery, consulted- help appreciated - AVF placement on 12/29/17 Renal u/s: 1. increased echogenicity of the b/l renal parenchymal cortices suggestive for medical renal disease 2. diminutive appearance of the bilateral kidneys which may represent underlying atrophy. 3. bilateral renal cysts CT abd/pelvis without contrast: no urolithiasis or evidence of recently passed genitourinary calculus. No acute abdominal pelvic pathology. Chronic atrophy of the left kidney. b/l renal cysts. prostatomegaly. UA: 2+ protein, 1+ gluc, 1+ blood urine osm: 301, protein 368, sodium 101 urine random creatinine 105.3 % sat: 22 ferritin: 102 hep panel- hep C antibody pos HIV (-) SPEP: suggestive of acute inflammation pattern with elevation of acute phase proteins LE Edema probably 2/2 ckd Chest xray: no active disease LE venous dopplers negative pulses 2+ as per Dr. Morin added Lasix 40mg po daily Echo (12/22): LVEF 61, left ventricle is normal size. borderline concentric left ventricular hypertrophy. normal lv segmental wall motion. transmitral doppler flow pattern in grade II pseudonormal filling dynamics Hep C Antibody Positive Hep C viral load: not detected HTN Continue home med Norvasc to 5mg po daily Lopressor 12.5mg po bid TSH: .28, Free T4: 1.24 HLD Continue home med Crestor 2.5 po HS lipid panel: triglycerides 134, cholesterol 119, LDL 57, HDL 27 IGT HgA1C: 6.3 low carb, heart healthy diet Prophylaxis DVT: Heparin 5000 u sc q8h Pepcid 20mg po daily PT/OT * Disposition: Patient is medically clear for discharge. Spoke with case management patient will be discharged Friday01/05/18 after dialysis. <Ganesh Cervantes - Last Filed: 01/03/18 15:16> Objective - Vital Signs/Intake and Output Vital Signs (last 24 hours): Temp Pulse Resp BP Pulse Ox 97.9 F 67 20 130/62 95 01/03/18 07:00 01/03/18 09:00 01/03/18 07:00 01/03/18 07:00 01/03/18 07:00 - Medications Medications: Current Medications Amlodipine Besylate (Norvasc) 5 mg PO DAILY [facility] Last Admin: 01/03/18 10:20 Dose: 5 mg Calcitriol (Rocaltrol) 0.25 mcg PO DAILY [facility] Last Admin: 01/03/18 10:12 Dose: 0.25 mcg Epoetin Kenneth (Procrit) 10,000 unit IV MWF [facility] Last Admin: 01/02/18 10:34 Dose: 10,000 unit Famotidine (Pepcid) 20 mg PO DAILY [facility] Last Admin: 01/03/18 10:12 Dose: 20 mg Heparin Sodium (Porcine) (Heparin) 5,000 units SC Q8H [facility] Last Admin: 01/03/18 08:05 Dose: 5,000 units Metoprolol Tartrate (Lopressor) 12.5 mg PO BID [facility] Last Admin: 01/03/18 10:12 Dose: 12.5 mg Rosuvastatin Calcium (Crestor) 2.5 mg PO HS [facility] Last Admin: 01/02/18 22:33 Dose: 2.5 mg - Labs Labs: 01/01/18 07:13 01/01/18 07:13 PT 12.3 SECONDS (9.7-12.2) H 12/25/17 07:15 INR 1.1 12/25/17 07:15 APTT 36 SECONDS (21-34) H 12/22/17 11:04 Attending/Attestation - Attestation I have personally seen and examined this patient.: Yes I have fully participated in the care of the patient.: Yes I have reviewed all pertinent clinical information, including history, physical exam and plan: Yes Notes (Text): Patient was seen and examined .He has no complain.Ambulating. Had dialysis yesterday He will be discharged home after dialysis on Friday 1.ESRD on HD 2.S/p avf 3.Hep c Ab positive,Hep C Viral load undetectable I agree with the resident's documentation
--- NOTE | 2018-01-03 09:33 | CP.PCM.PN ---
Subjective - Date & Time of Evaluation Date of Evaluation: 01/03/18 Time of Evaluation: 09:31 - Subjective Subjective: pt seen and examined feels well offers no complaints Had HD yesterday ROS- as per HPI, other than that 10 point ROS negative Objective - Vital Signs/Intake and Output Vital Signs (last 24 hours): Temp Pulse Resp BP Pulse Ox 97.9 F 67 20 130/62 95 01/03/18 07:00 01/03/18 07:00 01/03/18 07:00 01/03/18 07:00 01/03/18 07:00 - Medications Medications: Current Medications Amlodipine Besylate (Norvasc) 5 mg PO DAILY [facility] Last Admin: 01/02/18 13:51 Dose: 5 mg Calcitriol (Rocaltrol) 0.25 mcg PO DAILY [facility] Last Admin: 01/02/18 09:34 Dose: 0.25 mcg Epoetin Kenneth (Procrit) 10,000 unit IV MWF [facility] Last Admin: 01/02/18 10:34 Dose: 10,000 unit Famotidine (Pepcid) 20 mg PO DAILY [facility] Last Admin: 01/02/18 09:34 Dose: 20 mg Ferric Sodium Gluconate Complex (Ferrlecit) 125 mg IVPB DAILY [facility] Stop: 01/03/18 13:01 Last Admin: 01/02/18 10:35 Dose: 125 mg Heparin Sodium (Porcine) (Heparin) 5,000 units SC Q8H [facility] Last Admin: 01/02/18 22:45 Dose: 5,000 units Metoprolol Tartrate (Lopressor) 12.5 mg PO BID [facility] Last Admin: 01/02/18 17:39 Dose: 12.5 mg Rosuvastatin Calcium (Crestor) 2.5 mg PO HS [facility] Last Admin: 01/02/18 22:33 Dose: 2.5 mg - Labs Labs: 01/01/18 07:13 01/01/18 07:13 PT 12.3 SECONDS (9.7-12.2) H 12/25/17 07:15 INR 1.1 12/25/17 07:15 APTT 36 SECONDS (21-34) H 12/22/17 11:04 - Constitutional Appears: Well, Non-toxic - Head Exam Head Exam: ATRAUMATIC, NORMAL INSPECTION, NORMOCEPHALIC - Eye Exam Eye Exam: EOMI, PERRL - ENT Exam ENT Exam: Mucous Membranes Moist - Neck Exam Neck Exam: Full ROM. absent: Lymphadenopathy - Respiratory Exam Respiratory Exam: Clear to Ausculation Bilateral. absent: Rhonchi, Wheezes - Cardiovascular Exam Cardiovascular Exam: REGULAR RHYTHM, +S1, +S2 - GI/Abdominal Exam GI & Abdominal Exam: Soft. absent: Tenderness - Extremities Exam Extremities Exam: Full ROM. absent: Pedal Edema - Neurological Exam Neurological Exam: Alert, Awake, Oriented x3 - Psychiatric Exam Psychiatric exam: Normal Affect, Normal Mood - Skin Skin Exam: Normal Color, Warm Assessment and Plan (1) Anemia Status: Acute (2) CHF (congestive heart failure) Status: Acute (3) ESRD (end stage renal disease) Status: Acute (4) Hypertension Status: Acute - Assessment and Plan (Free Text) Plan: HD MWF next HD friday clinically stable has out pt HD setup await placement
[2018-01-03] MEDS: Ferric Sodium Gluconat Complex 62.5 mg/5 ml Vial IVPB SCH (10:20)
[2018-01-03] MEDS: Rosuvastatin Calcium 2.5 mg Tab PO SCH (22:02)
--- NOTE | 2018-01-04 02:07 | CP.PCM.PN ---
<Christiana Allen - Last Filed: 01/04/18 02:45> Subjective - Date & Time of Evaluation Date of Evaluation: 01/04/18 Time of Evaluation: 02:07 - Subjective Subjective: Medicine progress note for Dr. Cervantes's service Patient was seen and examined at bedside in no acute distress. Patient denies pain in his left UE. Patient denies chest pain, abdominal pain, dyspnea, nausea , vomiting, fevers, headaches, leg pain/swelling. No acute events overnight. Objective - Vital Signs/Intake and Output Vital Signs (last 24 hours): Temp Pulse Resp BP Pulse Ox 97.9 F 73 20 146/87 95 01/03/18 15:39 01/03/18 15:39 01/03/18 15:39 01/03/18 15:39 01/03/18 15:39 Intake and Output: 01/03/18 01/04/18 18:59 06:59 Intake Total 320 Balance 320 - Medications Medications: Current Medications Amlodipine Besylate (Norvasc) 5 mg PO DAILY [facility] Last Admin: 01/03/18 10:20 Dose: 5 mg Calcitriol (Rocaltrol) 0.25 mcg PO DAILY [facility] Last Admin: 01/03/18 10:12 Dose: 0.25 mcg Epoetin Kenneth (Procrit) 10,000 unit IV MWF [facility] Last Admin: 01/02/18 10:34 Dose: 10,000 unit Famotidine (Pepcid) 20 mg PO DAILY [facility] Last Admin: 01/03/18 10:12 Dose: 20 mg Heparin Sodium (Porcine) (Heparin) 5,000 units SC Q8H [facility] Last Admin: 01/03/18 23:59 Dose: 5,000 units Metoprolol Tartrate (Lopressor) 12.5 mg PO BID [facility] Last Admin: 01/03/18 17:41 Dose: 12.5 mg Rosuvastatin Calcium (Crestor) 2.5 mg PO HS [facility] Last Admin: 01/03/18 22:02 Dose: 2.5 mg - Labs Labs: 01/01/18 07:13 01/01/18 07:13 PT 12.3 SECONDS (9.7-12.2) H 12/25/17 07:15 INR 1.1 12/25/17 07:15 APTT 36 SECONDS (21-34) H 12/22/17 11:04 - Additional Findings Additional findings: - Constitutional Appears: No Acute Distress - Head Exam Head Exam: ATRAUMATIC, NORMAL INSPECTION - Eye Exam Eye Exam: EOMI, Normal appearance - ENT Exam ENT Exam: Mucous Membranes Moist - Respiratory Exam Respiratory Exam: Clear to Ausculation Bilateral, NORMAL BREATHING PATTERN - Cardiovascular Exam Cardiovascular Exam: REGULAR RHYTHM, +S1, +S2 - GI/Abdominal Exam GI & Abdominal Exam: Soft, Normal Bowel Sounds. absent: Tenderness - Extremities Exam Additional comments: LUE- s/p AV fistula placement. dressing clean, dry, and intact. - Neurological Exam Neurological Exam: Alert, Awake - Psychiatric Exam Psychiatric exam: Normal Affect, Normal Mood - Skin Skin Exam: Normal Color Assessment and Plan - Assessment and Plan (Free Text) Plan: * Disposition: Patient is medically clear for discharge. Spoke with case management patient will be discharged Friday01/05/18 after dialysis. BUCKY on CKD *s/p AV fistula placement on 12/29/17 w/Dr. Live Creatinine elevated in November at pmd's office (Dr. Caceres) Dr. Morin consulted, help appreciated - patient will need [employer], consent obtained from EVANGELISTA Mccord. Patient explained the need for dialysis and agrees - Pending placement to dialysis center Dr. Live, surgery, consulted- help appreciated - AVF placement on 12/29/17 Renal u/s: 1. increased echogenicity of the b/l renal parenchymal cortices suggestive for medical renal disease 2. diminutive appearance of the bilateral kidneys which may represent underlying atrophy. 3. bilateral renal cysts CT abd/pelvis without contrast: no urolithiasis or evidence of recently passed genitourinary calculus. No acute abdominal pelvic pathology. Chronic atrophy of the left kidney. b/l renal cysts. prostatomegaly. UA: 2+ protein, 1+ gluc, 1+ blood urine osm: 301, protein 368, sodium 101 urine random creatinine 105.3 % sat: 22 ferritin: 102 hep panel- hep C antibody pos HIV (-) SPEP: suggestive of acute inflammation pattern with elevation of acute phase proteins LE Edema probably 2/2 ckd Chest xray: no active disease LE venous dopplers negative pulses 2+ as per Dr. Morin added Lasix 40mg po daily Echo (12/22): LVEF 61, left ventricle is normal size. borderline concentric left ventricular hypertrophy. normal lv segmental wall motion. transmitral doppler flow pattern in grade II pseudonormal filling dynamics Hep C Antibody Positive Hep C viral load: not detected HTN Continue home med Norvasc to 5mg po daily Lopressor 12.5mg po bid TSH: .28, Free T4: 1.24 HLD Continue home med Crestor 2.5 po HS lipid panel: triglycerides 134, cholesterol 119, LDL 57, HDL 27 IGT HgA1C: 6.3 low carb, heart healthy diet Prophylaxis DVT: Heparin 5000 u sc q8h Pepcid 20mg po daily PT/OT * Disposition: Patient is medically clear for discharge. Spoke with case management patient will be discharged Friday01/05/18 after dialysis. <Ganesh Cervantes - Last Filed: 01/04/18 16:56> Objective - Vital Signs/Intake and Output Vital Signs (last 24 hours): Temp Pulse Resp BP Pulse Ox 98.0 F 81 20 157/70 H 97 01/04/18 07:45 01/04/18 07:45 01/04/18 07:45 01/04/18 07:45 01/04/18 07:45 Intake and Output: 01/04/18 01/04/18 06:59 18:59 Intake Total 320 Balance 320 - Medications Medications: Current Medications Amlodipine Besylate (Norvasc) 5 mg PO DAILY [facility] Last Admin: 01/04/18 09:46 Dose: 5 mg Calcitriol (Rocaltrol) 0.25 mcg PO DAILY [facility] Last Admin: 01/04/18 09:47 Dose: 0.25 mcg Epoetin Kenneth (Procrit) 10,000 unit IV MWF [facility] Last Admin: 01/02/18 10:34 Dose: 10,000 unit Famotidine (Pepcid) 20 mg PO DAILY [facility] Last Admin: 01/04/18 09:46 Dose: 20 mg Heparin Sodium (Porcine) (Heparin) 5,000 units SC Q8H [facility] Last Admin: 01/04/18 16:50 Dose: 5,000 units Metoprolol Tartrate (Lopressor) 12.5 mg PO BID [facility] Last Admin: 01/04/18 09:47 Dose: 12.5 mg Polyethylene Glycol (Miralax) 17 gm PO Q6 [facility] Rosuvastatin Calcium (Crestor) 2.5 mg PO HS [facility] Last Admin: 01/03/18 22:02 Dose: 2.5 mg - Labs Labs: 01/01/18 07:13 01/01/18 07:13 PT 12.3 SECONDS (9.7-12.2) H 12/25/17 07:15 INR 1.1 12/25/17 07:15 APTT 36 SECONDS (21-34) H 12/22/17 11:04 Attending/Attestation - Attestation I have personally seen and examined this patient.: Yes I have fully participated in the care of the patient.: Yes I have reviewed all pertinent clinical information, including history, physical exam and plan: Yes Notes (Text): Seen and examined by me ,Has no complain,walking steady. Patient's family /niece wants him to go to rehab or NH because of his mild dementia. Patient lives alone ,do little cooking himself and buy food. I agree with the resident's documentation of the assessment and the plan. we will follow up with CW/CW
[2018-01-04] MEDS: POLYETHYLENE GLYCOL 3350 17 GM/Dose PACKET PO SCH (17:52)
[2018-01-04] MEDS: Rosuvastatin Calcium 2.5 mg Tab PO SCH (22:08)
[2018-01-05] MEDS: POLYETHYLENE GLYCOL 3350 17 GM/Dose PACKET PO SCH ×5 (00:30→23:46)
--- NOTE | 2018-01-05 04:12 | CP.PCM.PN ---
<Alvin Pittman - Last Filed: 01/05/18 04:13> Subjective - Date & Time of Evaluation Date of Evaluation: 01/05/18 Time of Evaluation: 04:10 - Subjective Subjective: Progress note. Patient seen and examined at bedside. No acute distress. Patient denies pain in his left UE. Patient denies chest pain, abdominal pain, dyspnea, nausea, vomiting, fevers, headaches, leg pain/swelling. No acute events overnight. Objective - Vital Signs/Intake and Output Vital Signs (last 24 hours): Temp Pulse Resp BP Pulse Ox 98.8 F 77 20 132/71 97 01/04/18 23:45 01/04/18 23:45 01/04/18 23:45 01/04/18 23:45 01/04/18 23:45 - Medications Medications: Current Medications Amlodipine Besylate (Norvasc) 5 mg PO DAILY [facility] Last Admin: 01/04/18 09:46 Dose: 5 mg Calcitriol (Rocaltrol) 0.25 mcg PO DAILY [facility] Last Admin: 01/04/18 09:47 Dose: 0.25 mcg Epoetin Kenneth (Procrit) 10,000 unit IV MWF [facility] Last Admin: 01/02/18 10:34 Dose: 10,000 unit Famotidine (Pepcid) 20 mg PO DAILY [facility] Last Admin: 01/04/18 09:46 Dose: 20 mg Heparin Sodium (Porcine) (Heparin) 5,000 units SC Q8H [facility] Last Admin: 01/05/18 00:29 Dose: 5,000 units Metoprolol Tartrate (Lopressor) 12.5 mg PO BID [facility] Last Admin: 01/04/18 17:52 Dose: 12.5 mg Polyethylene Glycol (Miralax) 17 gm PO Q6 [facility] Last Admin: 01/05/18 00:30 Dose: 17 gm Rosuvastatin Calcium (Crestor) 2.5 mg PO HS [facility] Last Admin: 01/04/18 22:08 Dose: 2.5 mg - Labs Labs: 01/01/18 07:13 01/01/18 07:13 PT 12.3 SECONDS (9.7-12.2) H 12/25/17 07:15 INR 1.1 12/25/17 07:15 APTT 36 SECONDS (21-34) H 05/14/18 11:04 - Constitutional Appears: Non-toxic, No Acute Distress, Chronically Ill - Head Exam Head Exam: ATRAUMATIC, NORMAL INSPECTION, NORMOCEPHALIC - Eye Exam Eye Exam: EOMI - ENT Exam ENT Exam: Mucous Membranes Moist - Neck Exam Neck Exam: Full ROM, Normal Inspection - Respiratory Exam Respiratory Exam: NORMAL BREATHING PATTERN. absent: Respiratory Distress - Cardiovascular Exam Cardiovascular Exam: +S1, +S2 - GI/Abdominal Exam GI & Abdominal Exam: Soft, Normal Bowel Sounds. absent: Tenderness - Extremities Exam Extremities Exam: Full ROM. absent: Normal Inspection Additional comments: left av fistula, dressing clean, dry, intact. - Neurological Exam Neurological Exam: Alert, Awake, Oriented x3 - Psychiatric Exam Psychiatric exam: Normal Affect, Normal Mood - Skin Skin Exam: Dry, Intact, Normal Color, Warm Assessment and Plan - Assessment and Plan (Free Text) Assessment: This is an 82 yo male with 1. BUCKY on CKD -s/p av fistula with Dr. Live -Creatinine elevated in November at pmd's office (Dr. Caceres) -Dr. Morin consulted, help appreciated -pending placement to dialysis center -Dr. Live, surgery, consulted- help appreciated -Renal u/s: 1. increased echogenicity of the b/l renal parenchymal cortices suggestive for medical renal disease 2. diminutive appearance of the bilateral kidneys which may represent underlying atrophy. 3. bilateral renal cysts -CT abd/pelvis without contrast: no urolithiasis or evidence of recently passed genitourinary calculus. No acute abdominal pelvic pathology. Chronic atrophy of the left kidney. b/l renal cysts. prostatomegaly. -UA: 2+ protein, 1+ gluc, 1+ blood -urine osm: 301, protein 368, sodium 101 -urine random creatinine 105.3 -% sat: 22 ferritin: 102 -hep panel- hep C antibody pos -HIV (-) -SPEP: suggestive of acute inflammation pattern with elevation of acute phase proteins 2. LE Edema -probably secondary to CKD -Chest xray: no active disease -LE venous dopplers negative -pulses 2+ -as per Dr. Morin added Lasix 40 mg po daily -Echo (12/22): LVEF 61, left ventricle is normal size. borderline concentric left ventricular hypertrophy. normal lv segmental wall motion. transmitral doppler flow -pattern in grade II pseudonormal filling dynamics 3. Hep C Antibody Positive -Hep C viral load: not detected 4. hx of HTN -continue amlodipine 10 mg po daily -Lopressor 12.5 mg po bid 5. hx of HLD -Continue home med Crestor 2.5 mg po HS -lipid panel: triglycerides 134, cholesterol 119, LDL 57, HDL 27 6. IGT -HgA1C: 6.3 -low carb, heart healthy diet 7. GI/DVT Prophylaxis -DVT: Heparin 5000 u sc q8h -Pepcid 20 mg po daily -PT/OT * Disposition: Patient is medically clear for discharge. Plan is for patient to be discharged Friday01/05/18 after dialysis. <Walter Alonso H - Last Filed: 01/05/18 09:06> Objective - Vital Signs/Intake and Output Vital Signs (last 24 hours): Temp Pulse Resp BP Pulse Ox 97.9 F 73 18 148/71 79 L 01/05/18 07:05 01/05/18 07:05 01/05/18 07:05 01/05/18 07:05 01/05/18 07:05 Intake and Output: 01/05/18 01/05/18 06:59 18:59 Output Total 400 Balance -400 - Medications Medications: Current Medications Amlodipine Besylate (Norvasc) 5 mg PO DAILY [facility] Last Admin: 01/04/18 09:46 Dose: 5 mg Calcitriol (Rocaltrol) 0.25 mcg PO DAILY [facility] Last Admin: 01/05/18 09:01 Dose: 0.25 mcg Epoetin Kenneth (Procrit) 10,000 unit IV MWF [facility] Last Admin: 01/02/18 10:34 Dose: 10,000 unit Famotidine (Pepcid) 20 mg PO DAILY [facility] Last Admin: 01/05/18 09:01 Dose: 20 mg Heparin Sodium (Porcine) (Heparin) 5,000 units SC Q8H [facility] Last Admin: 01/05/18 08:45 Dose: 5,000 units Metoprolol Tartrate (Lopressor) 12.5 mg PO BID [facility] Last Admin: 01/04/18 17:52 Dose: 12.5 mg Polyethylene Glycol (Miralax) 17 gm PO Q6 [facility] Last Admin: 01/05/18 06:07 Dose: 17 gm Rosuvastatin Calcium (Crestor) 2.5 mg PO HS [facility] Last Admin: 01/04/18 22:08 Dose: 2.5 mg - Labs Labs: 01/01/18 07:13 01/01/18 07:13 PT 12.3 SECONDS (9.7-12.2) H 12/25/17 07:15 INR 1.1 12/25/17 07:15 APTT 36 SECONDS (21-34) H 12/22/17 11:04 Attending/Attestation - Attestation I have personally seen and examined this patient.: Yes I have fully participated in the care of the patient.: Yes I have reviewed all pertinent clinical information, including history, physical exam and plan: Yes Notes (Text): 01/05/18 09:05 Medical attending: Patient was seen and examined by me. Agree with the above note by the resident The patient has not yet had HD He was eating breakfast when I came and saw and examined him. He was doing well. Denied pain, denied shortness of breath, plesant however dementia noted Plan is fpr HD today and later on DC to rehab thank you Walter Alonso
[2018-01-05 10:22] LABS: BASO # 0.1 K/uL (0.0-0.2); EOS # 0.7 K/uL (0.0-0.7); EOS % 7.3 % (0.0-4.0); LYMPH # 2.5 K/uL (1.0-4.3); LYMPH % 26.3 % (20.0-40.0); MEAN CORPUSCULAR HEMOGLOBIN 33.3 pg (27.0-31.0); MEAN CORPUSCULAR HGB CONC 34.6 g/dL (33.0-37.0); MEAN PLATELET VOLUME 8.9 fL (7.2-11.7); MONO # 0.9 K/uL (0.0-0.8); MONO % 8.9 % (0.0-10.0); NEUT # 5.4 K/uL (1.8-7.0); NEUT % 56.5 % (50.0-75.0); RBC 3.01 Mil/uL (4.40-5.90); RED CELL DISTRIBUTION WIDTH 15.7 % (11.5-14.5); WHITE BLOOD COUNT 9.6 K/uL (4.8-10.8)
[2018-01-05 10:24] LABS: MEAN CELL VOLUME 96.4 fL (80.0-94.0)
[2018-01-05] MEDS: Epoetin Alfa 10,000 unit/ml Dialysis IV SCH (11:56)
--- NOTE | 2018-01-05 12:14 | CP.PCM.PN ---
Subjective - Date & Time of Evaluation Date of Evaluation: 01/05/18 Time of Evaluation: 12:13 - Subjective Subjective: pt seen and examined no events no complaints denies any n/v/d/sob/cp/fever/chills/dizziness/headache/paoin poor historian hd today Objective - Vital Signs/Intake and Output Vital Signs (last 24 hours): Temp Pulse Resp BP Pulse Ox 97.4 F L 78 19 121/78 99 01/05/18 10:00 01/05/18 10:00 01/05/18 10:00 01/05/18 12:00 01/05/18 10:00 Intake and Output: 01/05/18 01/05/18 06:59 18:59 Output Total 400 Balance -400 - Medications Medications: Current Medications Amlodipine Besylate (Norvasc) 5 mg PO DAILY [facility] Last Admin: 01/05/18 10:56 Dose: Not Given Calcitriol (Rocaltrol) 0.25 mcg PO DAILY [facility] Last Admin: 01/05/18 09:01 Dose: 0.25 mcg Epoetin Kenneth (Procrit) 10,000 unit IV MWF [facility] Last Admin: 01/05/18 11:56 Dose: 10,000 unit Famotidine (Pepcid) 20 mg PO DAILY [facility] Last Admin: 01/05/18 09:01 Dose: 20 mg Heparin Sodium (Porcine) (Heparin) 5,000 units SC Q8H [facility] Last Admin: 01/05/18 08:45 Dose: 5,000 units Metoprolol Tartrate (Lopressor) 12.5 mg PO BID [facility] Last Admin: 01/05/18 10:56 Dose: Not Given Polyethylene Glycol (Miralax) 17 gm PO Q6 [facility] Last Admin: 01/05/18 06:07 Dose: 17 gm Rosuvastatin Calcium (Crestor) 2.5 mg PO HS [facility] Last Admin: 01/04/18 22:08 Dose: 2.5 mg - Labs Labs: 01/05/18 10:17 01/01/18 07:13 PT 12.3 SECONDS (9.7-12.2) H 12/25/17 07:15 INR 1.1 12/25/17 07:15 APTT 36 SECONDS (21-34) H 12/22/17 11:04 - Constitutional Appears: No Acute Distress, Chronically Ill - Head Exam Head Exam: NORMAL INSPECTION, NORMOCEPHALIC - Eye Exam Eye Exam: Normal appearance, PERRL - ENT Exam ENT Exam: Mucous Membranes Moist, Normal Exam - Neck Exam Neck Exam: Full ROM, Normal Inspection - Respiratory Exam Respiratory Exam: Clear to Ausculation Bilateral, NORMAL BREATHING PATTERN - Cardiovascular Exam Cardiovascular Exam: REGULAR RHYTHM, RRR - GI/Abdominal Exam GI & Abdominal Exam: Distended, Soft, Normal Bowel Sounds - Extremities Exam Extremities Exam: Normal Inspection Additional comments: lue avf - Back Exam Back Exam: NORMAL INSPECTION - Neurological Exam Neurological Exam: Alert, Awake - Psychiatric Exam Psychiatric exam: Normal Affect, Normal Mood - Skin Skin Exam: Dry, Intact Assessment and Plan (1) Chronic kidney disease Status: Acute (2) Anemia Status: Acute (3) Hypertension Status: Acute (4) Edema Status: Acute (5) CHF (congestive heart failure) Status: Acute - Assessment and Plan (Free Text) Assessment: HD MWF clinically stable has out pt HD setup await placement
[2018-01-05 12:26] LABS: ALB/GLOB RATIO 0.8 (1.0-2.1); ALBUMIN 3.4 g/dL (3.5-5.0); CALCIUM 9.3 mg/dl (8.6-10.4)
[2018-01-05 14:29] VITALS: RESP 20
[2018-01-05] MEDS ORDERED: Bisacodyl 5mg EC Tab PO ONE (18:33)
[2018-01-05] MEDS: Rosuvastatin Calcium 2.5 mg Tab PO SCH (21:13)
[2018-01-06] MEDS: POLYETHYLENE GLYCOL 3350 17 GM/Dose PACKET PO SCH ×4 (05:57→23:56)
--- NOTE | 2018-01-06 09:46 | CP.PCM.DIS ---
<Christiana Allen - Last Filed: 01/06/18 17:00> Provider - Provider Date of Admission: 12/22/17 11:52 Attending physician: Walter Alonso DO Primary care physician: Dr. Nuno Consults: Nephrology: Dr. Morin Surgery: Dr. Live Time Spent in preparation of Discharge (in minutes): 45 Hospital Course - Lab Results Lab Results: Micro Results 12/22/17 19:52 Urine Urine Culture - Final No Growth (<1,000 CFU/ML) Most Recent Lab Values WBC 9.6 K/uL (4.8-10.8) 01/05/18 10:17 RBC 3.01 Mil/uL (4.40-5.90) L 01/05/18 10:17 Hgb 10.0 g/dL (12.0-18.0) L 01/05/18 10:17 Hct 29.0 % (35.0-51.0) L 01/05/18 10:17 MCV 96.4 fL (80.0-94.0) H D 01/05/18 10:17 MCH 33.3 pg (27.0-31.0) H 01/05/18 10:17 MCHC 34.6 g/dL (33.0-37.0) 01/05/18 10:17 RDW 15.7 % (11.5-14.5) H 01/05/18 10:17 Plt Count 204 K/uL (130-400) 01/05/18 10:17 MPV 8.9 fL (7.2-11.7) 01/05/18 10:17 Neut % (Auto) 56.5 % (50.0-75.0) 01/05/18 10:17 Lymph % (Auto) 26.3 % (20.0-40.0) 01/05/18 10:17 Motley % (Auto) 8.9 % (0.0-10.0) 01/05/18 10:17 Eos % (Auto) 7.3 % (0.0-4.0) H 01/05/18 10:17 Baso % (Auto) 1.0 % (0.0-2.0) 01/05/18 10:17 Neut # (Auto) 5.4 K/uL (1.8-7.0) 01/05/18 10:17 Lymph # (Auto) 2.5 K/uL (1.0-4.3) 01/05/18 10:17 Motley # (Auto) 0.9 K/uL (0.0-0.8) H 01/05/18 10:17 Eos # (Auto) 0.7 K/uL (0.0-0.7) 01/05/18 10:17 Baso # (Auto) 0.1 K/uL (0.0-0.2) 01/05/18 10:17 PT 12.3 SECONDS (9.7-12.2) H 12/25/17 07:15 INR 1.1 12/25/17 07:15 APTT 36 SECONDS (21-34) H 12/22/17 11:04 Sodium 136 mmol/L (132-148) 01/05/18 11:40 Potassium 3.7 mmol/L (3.6-5.2) 01/05/18 11:40 Chloride 97 mmol/L (98-107) L 01/05/18 11:40 Carbon Dioxide 25 mmol/L (22-30) 01/05/18 11:40 Anion Gap 17 (10-20) 01/05/18 11:40 BUN 39 mg/dL (9-20) H 01/05/18 11:40 Creatinine 4.9 mg/dL (0.8-1.5) H 01/05/18 11:40 Est GFR ( Amer) 14 01/05/18 11:40 Est GFR (Non-Af Amer) 11 01/05/18 11:40 Random Glucose 125 mg/dL (75-110) H 01/05/18 11:40 Hemoglobin A1c 6.3 % (4.2-6.5) 12/23/17 07:10 Calcium 9.3 mg/dl (8.6-10.4) 01/05/18 11:40 Phosphorus 2.4 mg/dL (2.5-4.5) L 01/01/18 07:13 Magnesium 1.9 mg/dL (1.6-2.3) 01/01/18 07:13 % Saturation 21 (20-55) 12/25/17 07:15 Ferritin 100.0 ng/mL 12/25/17 07:15 Total Bilirubin 0.6 mg/dL (0.2-1.3) 01/05/18 11:40 AST 34 U/L (17-59) 01/05/18 11:40 ALT 6 U/L (21-72) L D 01/05/18 11:40 Alkaline Phosphatase 104 U/L (38-126) 01/05/18 11:40 Troponin I 0.0690 ng/mL (0.00-0.120) 12/22/17 11:04 NT-Pro-B Natriuret Pep 4490 pg/mL (0-900) H 12/22/17 11:04 Total Protein 7.7 g/dL (6.3-8.3) 01/05/18 11:40 Total Protein (PEP) 6.9 g/dL (6.1-8.1) 12/24/17 06:49 Albumin 3.4 g/dL (3.5-5.0) L 01/05/18 11:40 Albumin (PEP) 3.0 g/dL (3.8-4.8) L 12/24/17 06:49 Globulin 4.2 gm/dL (2.2-3.9) H 01/05/18 11:40 Albumin/Globulin Ratio 0.8 (1.0-2.1) L 01/05/18 11:40 Nsjax-0-Xdsgvljfb 0.4 g/dL (0.2-0.3) H 12/24/17 06:49 Xkdzx-0-Pkmcromgz 1.0 g/dL (0.5-0.9) H 12/24/17 06:49 Yjle-3-Tapjzxlp 0.4 g/dL (0.4-0.6) 12/24/17 06:49 Npse-9-Sknpvwsv 0.6 g/dL (0.2-0.5) H 12/24/17 06:49 Gamma Globulins 1.4 g/dL (0.8-1.7) 12/24/17 06:49 Abnorm Protein Band 1 TEST NOT PERFORMED 12/24/17 06:49 Abnorm Protein Band 2 TEST NOT PERFORMED 12/24/17 06:49 Abnorm Protein Band 3 TEST NOT PERFORMED 12/24/17 06:49 Triglycerides 134 mg/dL (0-149) 12/23/17 07:10 Cholesterol 119 mg/dL (0-199) 12/23/17 07:10 LDL Cholesterol Direct 57 mg/dL (0-129) 12/23/17 07:10 HDL Cholesterol 27 mg/dL (30-70) L 12/23/17 07:10 Free T4 1.24 ng/dL (0.78-2.19) 12/23/17 07:10 TSH 3rd Generation 0.28 mIU/L (0.46-4.68) L 12/23/17 07:10 PTH Intact Whole Molec 191 pg/mL (14-64) H 12/24/17 06:49 Urine Color Straw (YELLOW) 12/22/17 14:36 Urine Clarity Clear (Clear) 12/22/17 14:36 Urine pH 7.0 (5.0-8.0) 12/22/17 14:36 Ur Specific [place] 1.008 (1.003-1.030) 12/22/17 14:36 Urine Protein 2+ mg/dL (NEGATIVE) H 12/22/17 14:36 Urine Glucose (UA) 1+ mg/dL (Normal) H 12/22/17 14:36 Urine Ketones Negative mg/dL (NEGATIVE) 12/22/17 14:36 Urine Blood 1+ (NEGATIVE) H 12/22/17 14:36 Urine Nitrate Negative (NEGATIVE) 12/22/17 14:36 Urine Bilirubin Negative (NEGATIVE) 12/22/17 14:36 Urine Urobilinogen Normal mg/dL (0.2-1.0) 12/22/17 14:36 Ur Leukocyte Esterase Neg Charu/uL (Negative) 12/22/17 14:36 Urine WBC (Auto) 1 /hpf (0-5) 12/22/17 14:36 Urine RBC (Auto) 2 /hpf (0-3) 12/22/17 14:36 Ur Squamous Epith Cells < 1 /hpf (0-5) 12/22/17 14:36 Urine Osmolality 301 mosm/kg (300-1000) 12/22/17 14:36 Ur Random Creatinine 105.3 mg/dL 12/23/17 17:16 U Random Total Protein 368.0 mg/dL (0.0-12.0) H 12/22/17 14:36 Ur Random Sodium 101 mmol/L 12/22/17 14:36 LYNDA & SPEP Interp See note 12/24/17 06:49 Hepatitis A IgM Ab Negative (NEGATIVE) 12/24/17 06:49 Hep Bs Antigen Negative (NEGATIVE) 12/24/17 06:49 Hep Bs Antibody Positive (NEGATIVE) 12/26/17 16:39 Hep B Core IgM Ab Negative (NEGATIVE) 12/24/17 06:49 Hepatitis C Antibody Reactive (NEGATIVE) 12/24/17 06:49 HCV RNA Qual (TMA) Not detected 12/25/17 11:41 HIV 1&2 Antibody Screen Negative (NEGATIVE) 12/24/17 06:50 - Hospital Course Hospital Course: CC: lower extremity swelling 82 M with PMHX of HTN, HLD, CKD presents to the ED for bilateral lower extremity swelling. PT is a poor historian because he is forgetful. Pt walked from his home after family suggested he see a doctor for his leg swelling. Pt states that the Lower Extremity Swelling started about 1 week ago. The swelling is generalized from below the knee to toes. Pt states that the left lower extremity is worse than the right. He states that there is no associated pain in the extremities. Pt last saw his PMD this past November and it was found that his Creatinine was elevated. He has a first time appointment with a waste water operator next Sunday 12/31. He denies fever, chills, DONNELLY, chest pain, palpitations, SOB, cough, abdominal pain, nausea, vomiting, diarrhea, and leg pain. Spoke to niece on the phone (Niece: Trudy [phone]), who provided additional information. Niece said that her Uncle is very forgetful for the past year, but that family members call him to make sure he takes his meds. Besides the lower extremity edema, niece says he has had no other complaints and has not been sick recently. Code Status: DNI health care proxy: Tania Mccord ([phone]) Primary Care Doctor: Dr. Nuno PMHX: HTN, HLD, CKD PSH: Cervical Spine Surgery 2000 with [employer]? FAMILY HX: Mother , no known significant past medical history; Father , no known significant past medical history ALLERGIES: NKDA MEDICATIONS: Norvasc 5mg PO QD, Simvastatin 10mg PO QD SOCIAL: Denies tobacco, ETOH, and illicit drug use, lives in a senior home, refuses to have a visiting nurse, completes ADLs without help Hospital course: Patient was admitted on 12/22/17 for Renal failure. Patient's lower extremities were edematous; venous dopplers were ordered and negative for DVTs. Chest xray was ordered and showed no active disease. On labs, BUN/ Creatinine were elevated. Nephrology, Dr. Morin, was consulted. Renal ultrasound was ordered and showed increased echogenicity of the b/l renal parenchymal cortices suggestive for medical renal disease; diminutive appearance of the bilateral kidneys which may represent underlying atrophy; bilateral renal cysts . Abdomen/Pelvis CT was ordered and showed no urolithiasis or evidence of recently passed genitourinary calculus; No acute abdominal pelvic pathology; Chronic atrophy of the left kidney; b/l renal cysts ; prostatomegaly. Labs were drawn, hepatitis C antibody came back positive. Hepatitis C viral load was then ordered and was undetectable. General surgery, Dr. Live, was consulted for placement of a right permacath and AV fistula. Patient had right IJ permacath placed on 12/26 and an AV fistula placed on . Patient started dialysis on Friday, Friday, Friday schedule. Patient's history of hypertension, hyperlipidemia, and impaired glucose tolerance were monitored and managed throughout hospital course. Home medications were continued. Patient tolerated AV fistula and permacath with minimal pain and no complications or complaints. Patient tolerated dialysis without complications. Case management and social work on the case to assist in placement at dialysis center and discharge planning. Patient was seen and examined today; Patient has no complaints and feels well. Patient is stable for discharge. Patient must follow up with Dr. Morin and Dr. Live. Patient must continue dialysis schedule of Friday, Friday, and Friday. This is a brief summary of the hospital course. Please see EMR for more details. Discharge Exam - Additional Findings Additional findings: - Constitutional Appears: No Acute Distress - Head Exam Head Exam: ATRAUMATIC, NORMAL INSPECTION - Eye Exam Eye Exam: EOMI, Normal appearance - ENT Exam ENT Exam: Mucous Membranes Moist - Respiratory Exam Respiratory Exam: Clear to Ausculation Bilateral, NORMAL BREATHING PATTERN - Cardiovascular Exam Cardiovascular Exam: REGULAR RHYTHM, +S1, +S2 - GI/Abdominal Exam GI & Abdominal Exam: Soft, Normal Bowel Sounds. absent: Tenderness - Extremities Exam Additional comments: LUE- s/p AV fistula placement. dressing clean, dry, and intact. - Neurological Exam Neurological Exam: Alert, Awake - Psychiatric Exam Psychiatric exam: Normal Affect, Normal Mood Discharge Plan - Discharge Medications Prescriptions: amLODIPine [Norvasc] 5 mg PO DAILY #30 tab Metoprolol Tartrate [Lopressor] 12.5 mg PO BID #60 tab Simvastatin 10 mg PO HS #30 tablet - Follow Up Plan Condition: GOOD Disposition: HOME/ ROUTINE Instructions: Dialysis Diet , Hemodialysis (DC), Arteriovenous Fistula for Dialysis, Amlodipine, Metoprolol, Simvastatin, Dialysis Catheter, Heart Failure (DC), Pacemaker (DC), Pulmonary Edema (DC), Renal Failure Diet (DC), Ascites (DC ) Additional Instructions: Patient is stable for discharge to home. Patient must continue medications as prescribed: 1. Norvasc 5mg PO daily- take 1 tablet by mouth daily 2. Lopressor 12.5mg PO BID- take 1 tablet by mouth twice a day (breakfast,dinner ) 3. Simvastatin 10mg PO HS- take 1 tablet by mouth in the evening (dinner) Patient must follow up with waste water operator, Dr. Morin, upon discharge. Patient must continue regular dialysis schedule- Friday, Friday, Friday. Patient must follow up with PMD within 1 week of discharge. Patient must follow up with surgeon, Dr. Live, within 1 week. If symptoms worsen or reoccur, patient should return to the nearest ER. Referrals: Phu Live Jr., MD [Staff Provider] - Segun Morin MD [Staff Provider] - <Walter Alonso - Last Filed: 01/06/18 17:19> Provider - Provider Date of Admission: 12/22/17 11:52 Attending physician: Walter lAonso DO Hospital Course - Lab Results Lab Results: Micro Results 12/22/17 19:52 Urine Urine Culture - Final No Growth (<1,000 CFU/ML) Most Recent Lab Values WBC 9.6 K/uL (4.8-10.8) 01/05/18 10:17 RBC 3.01 Mil/uL (4.40-5.90) L 01/05/18 10:17 Hgb 10.0 g/dL (12.0-18.0) L 01/05/18 10:17 Hct 29.0 % (35.0-51.0) L 01/05/18 10:17 MCV 96.4 fL (80.0-94.0) H D 01/05/18 10:17 MCH 33.3 pg (27.0-31.0) H 01/05/18 10:17 MCHC 34.6 g/dL (33.0-37.0) 01/05/18 10:17 RDW 15.7 % (11.5-14.5) H 01/05/18 10:17 Plt Count 204 K/uL (130-400) 01/05/18 10:17 MPV 8.9 fL (7.2-11.7) 01/05/18 10:17 Neut % (Auto) 56.5 % (50.0-75.0) 01/05/18 10:17 Lymph % (Auto) 26.3 % (20.0-40.0) 01/05/18 10:17 Motley % (Auto) 8.9 % (0.0-10.0) 01/05/18 10:17 Eos % (Auto) 7.3 % (0.0-4.0) H 01/05/18 10:17 Baso % (Auto) 1.0 % (0.0-2.0) 01/05/18 10:17 Neut # (Auto) 5.4 K/uL (1.8-7.0) 01/05/18 10:17 Lymph # (Auto) 2.5 K/uL (1.0-4.3) 01/05/18 10:17 [place] # (Auto) 0.9 K/uL (0.0-0.8) H 01/05/18 10:17 Eos # (Auto) 0.7 K/uL (0.0-0.7) 01/05/18 10:17 Baso # (Auto) 0.1 K/uL (0.0-0.2) 01/05/18 10:17 PT 12.3 SECONDS (9.7-12.2) H 12/25/17 07:15 INR 1.1 12/25/17 07:15 APTT 36 SECONDS (21-34) H 12/22/17 11:04 Sodium 136 mmol/L (132-148) 01/05/18 11:40 Potassium 3.7 mmol/L (3.6-5.2) 01/05/18 11:40 Chloride 97 mmol/L (98-107) L 01/05/18 11:40 Carbon Dioxide 25 mmol/L (22-30) 01/05/18 11:40 Anion Gap 17 (10-20) 01/05/18 11:40 BUN 39 mg/dL (9-20) H 01/05/18 11:40 Creatinine 4.9 mg/dL (0.8-1.5) H 01/05/18 11:40 Est GFR ( Amer) 14 01/05/18 11:40 Est GFR (Non-Af Amer) 11 01/05/18 11:40 Random Glucose 125 mg/dL (75-110) H 01/05/18 11:40 Hemoglobin A1c 6.3 % (4.2-6.5) 12/23/17 07:10 Calcium 9.3 mg/dl (8.6-10.4) 01/05/18 11:40 Phosphorus 2.4 mg/dL (2.5-4.5) L 01/01/18 07:13 Magnesium 1.9 mg/dL (1.6-2.3) 01/01/18 07:13 % Saturation 21 (20-55) 12/25/17 07:15 Ferritin 100.0 ng/mL 12/25/17 07:15 Total Bilirubin 0.6 mg/dL (0.2-1.3) 01/05/18 11:40 AST 34 U/L (17-59) 01/05/18 11:40 ALT 6 U/L (21-72) L D 01/05/18 11:40 Alkaline Phosphatase 104 U/L (38-126) 01/05/18 11:40 Troponin I 0.0690 ng/mL (0.00-0.120) 12/22/17 11:04 NT-Pro-B Natriuret Pep 4490 pg/mL (0-900) H 12/22/17 11:04 Total Protein 7.7 g/dL (6.3-8.3) 01/05/18 11:40 Total Protein (PEP) 6.9 g/dL (6.1-8.1) 12/24/17 06:49 Albumin 3.4 g/dL (3.5-5.0) L 01/05/18 11:40 Albumin (PEP) 3.0 g/dL (3.8-4.8) L 12/24/17 06:49 Globulin 4.2 gm/dL (2.2-3.9) H 01/05/18 11:40 Albumin/Globulin Ratio 0.8 (1.0-2.1) L 01/05/18 11:40 Zzjsv-8-Hnzpxzsrq 0.4 g/dL (0.2-0.3) H 12/24/17 06:49 Ufmxi-8-Enbnyitbm 1.0 g/dL (0.5-0.9) H 12/24/17 06:49 Hzwv-2-Gsiabufc 0.4 g/dL (0.4-0.6) 12/24/17 06:49 Tmqd-6-Hlypmdhv 0.6 g/dL (0.2-0.5) H 12/24/17 06:49 Gamma Globulins 1.4 g/dL (0.8-1.7) 12/24/17 06:49 Abnorm Protein Band 1 TEST NOT PERFORMED 12/24/17 06:49 Abnorm Protein Band 2 TEST NOT PERFORMED 12/24/17 06:49 Abnorm Protein Band 3 TEST NOT PERFORMED 12/24/17 06:49 Triglycerides 134 mg/dL (0-149) 12/23/17 07:10 Cholesterol 119 mg/dL (0-199) 12/23/17 07:10 LDL Cholesterol Direct 57 mg/dL (0-129) 12/23/17 07:10 HDL Cholesterol 27 mg/dL (30-70) L 12/23/17 07:10 Free T4 1.24 ng/dL (0.78-2.19) 12/23/17 07:10 TSH 3rd Generation 0.28 mIU/L (0.46-4.68) L 12/23/17 07:10 PTH Intact Whole Molec 191 pg/mL (14-64) H 12/24/17 06:49 Urine Color Straw (YELLOW) 12/22/17 14:36 Urine Clarity Clear (Clear) 12/22/17 14:36 Urine pH 7.0 (5.0-8.0) 12/22/17 14:36 Ur Specific [place] 1.008 (1.003-1.030) 12/22/17 14:36 Urine Protein 2+ mg/dL (NEGATIVE) H 12/22/17 14:36 Urine Glucose (UA) 1+ mg/dL (Normal) H 12/22/17 14:36 Urine Ketones Negative mg/dL (NEGATIVE) 12/22/17 14:36 Urine Blood 1+ (NEGATIVE) H 12/22/17 14:36 Urine Nitrate Negative (NEGATIVE) 12/22/17 14:36 Urine Bilirubin Negative (NEGATIVE) 12/22/17 14:36 Urine Urobilinogen Normal mg/dL (0.2-1.0) 12/22/17 14:36 Ur Leukocyte Esterase Neg Charu/uL (Negative) 12/22/17 14:36 Urine WBC (Auto) 1 /hpf (0-5) 12/22/17 14:36 Urine RBC (Auto) 2 /hpf (0-3) 12/22/17 14:36 Ur Squamous Epith Cells < 1 /hpf (0-5) 12/22/17 14:36 Urine Osmolality 301 mosm/kg (300-1000) 12/22/17 14:36 Ur Random Creatinine 105.3 mg/dL 12/23/17 17:16 U Random Total Protein 368.0 mg/dL (0.0-12.0) H 12/22/17 14:36 Ur Random Sodium 101 mmol/L 12/22/17 14:36 LYNDA & SPEP Interp See note 12/24/17 06:49 Hepatitis A IgM Ab Negative (NEGATIVE) 12/24/17 06:49 Hep Bs Antigen Negative (NEGATIVE) 12/24/17 06:49 Hep Bs Antibody Positive (NEGATIVE) 12/26/17 16:39 Hep B Core IgM Ab Negative (NEGATIVE) 12/24/17 06:49 Hepatitis C Antibody Reactive (NEGATIVE) 12/24/17 06:49 HCV RNA Qual (TMA) Not detected 12/25/17 11:41 HIV 1&2 Antibody Screen Negative (NEGATIVE) 12/24/17 06:50 Attending/Attestation - Attestation I have personally seen and examined this patient.: Yes I have fully participated in the care of the patient.: Yes I have reviewed all pertinent clinical information, including history, physical exam and plan: Yes Notes (Text): 01/06/18 17:19 Medical Attending: Patient was seen and examined by me, agree with the above note by medical educator. The patient will be going home with home services. As documented above the patient has been here for quite some time. The situation is made more complex since he is a rather poor historian and has some element of dementia He now has a permacath as well as creation of an AV fistula. He will need to follow up with dialysis on Wednesdays and Fridays. Thank you very much, Walter lAonso
--- NOTE | 2018-01-06 10:59 | CP.PCM.PN ---
Subjective - Date & Time of Evaluation Date of Evaluation: 01/06/18 Time of Evaluation: 10:59 - Subjective Subjective: seen and examined no events stable comfortable 10 point ros negative Objective - Vital Signs/Intake and Output Vital Signs (last 24 hours): Temp Pulse Resp BP Pulse Ox 98.3 F 62 20 150/79 97 01/06/18 07:20 01/06/18 07:20 01/06/18 07:20 01/06/18 07:20 01/06/18 07:20 - Medications Medications: Current Medications Amlodipine Besylate (Norvasc) 5 mg PO DAILY [facility] Last Admin: 01/06/18 10:29 Dose: 5 mg Calcitriol (Rocaltrol) 0.25 mcg PO DAILY [facility] Last Admin: 01/05/18 09:01 Dose: 0.25 mcg Docusate Sodium (Colace) 100 mg PO TID [facility] Epoetin Kenneth (Procrit) 10,000 unit IV MWF [facility] Last Admin: 01/05/18 11:56 Dose: 10,000 unit Famotidine (Pepcid) 20 mg PO DAILY [facility] Last Admin: 01/06/18 10:29 Dose: 20 mg Heparin Sodium (Porcine) (Heparin) 5,000 units SC Q8H [facility] Last Admin: 01/06/18 08:25 Dose: 5,000 units Metoprolol Tartrate (Lopressor) 12.5 mg PO BID [facility] Last Admin: 01/06/18 10:30 Dose: 12.5 mg Polyethylene Glycol (Miralax) 17 gm PO Q6 [facility] Last Admin: 01/06/18 05:57 Dose: 17 gm Rosuvastatin Calcium (Crestor) 2.5 mg PO HS [facility] Last Admin: 01/05/18 21:13 Dose: 2.5 mg - Labs Labs: 01/05/18 10:17 01/05/18 11:40 PT 12.3 SECONDS (9.7-12.2) H 12/25/17 07:15 INR 1.1 12/25/17 07:15 APTT 36 SECONDS (21-34) H 12/22/17 11:04 - Constitutional Appears: Non-toxic, No Acute Distress, Chronically Ill - Head Exam Head Exam: NORMAL INSPECTION, NORMOCEPHALIC - Eye Exam Eye Exam: Normal appearance Pupil Exam: PERRL - ENT Exam ENT Exam: Mucous Membranes Moist, Normal Exam - Neck Exam Neck Exam: Full ROM, Normal Inspection (rt chest permcath) - Respiratory Exam Respiratory Exam: Clear to Ausculation Bilateral, NORMAL BREATHING PATTERN - Cardiovascular Exam Cardiovascular Exam: REGULAR RHYTHM, RRR - GI/Abdominal Exam GI & Abdominal Exam: Distended, Soft, Normal Bowel Sounds - Extremities Exam Extremities Exam: Full ROM, Normal Inspection - Neurological Exam Neurological Exam: Alert, Awake, Oriented x3 - Psychiatric Exam Psychiatric exam: Flat Affect, Normal Mood - Skin Skin Exam: Dry, Intact Assessment and Plan (1) Chronic kidney disease Status: Acute (2) Anemia Status: Acute (3) Hypertension Status: Acute (4) Edema Status: Acute (5) CHF (congestive heart failure) Status: Acute - Assessment and Plan (Free Text) Assessment: maintain hd stable from renal standpoint
[2018-01-06] MEDS: Rosuvastatin Calcium 2.5 mg Tab PO SCH (22:02)
[2018-01-07] MEDS: POLYETHYLENE GLYCOL 3350 17 GM/Dose PACKET PO SCH ×3 (05:09→17:33)
--- NOTE | 2018-01-07 11:42 | CP.PCM.PN ---
Subjective - Date & Time of Evaluation Date of Evaluation: 01/07/18 Time of Evaluation: 11:41 - Subjective Subjective: seen and examined no events awaiting dc no complaints 10 point ROS negative Objective - Vital Signs/Intake and Output Vital Signs (last 24 hours): Temp Pulse Resp BP Pulse Ox 98.1 F 71 20 156/71 H 97 01/07/18 07:20 01/07/18 07:20 01/07/18 07:20 01/07/18 07:20 01/07/18 07:20 - Medications Medications: Current Medications Amlodipine Besylate (Norvasc) 5 mg PO DAILY [facility] Last Admin: 01/07/18 09:37 Dose: Not Given Calcitriol (Rocaltrol) 0.25 mcg PO DAILY [facility] Last Admin: 01/07/18 11:06 Dose: 0.25 mcg Docusate Sodium (Colace) 100 mg PO TID [facility] Last Admin: 01/07/18 09:40 Dose: Not Given Epoetin Kenneth (Procrit) 10,000 unit IV MWF [facility] Last Admin: 01/05/18 11:56 Dose: 10,000 unit Famotidine (Pepcid) 20 mg PO DAILY [facility] Last Admin: 01/07/18 09:39 Dose: 20 mg Heparin Sodium (Porcine) (Heparin) 5,000 units SC Q8H [facility] Last Admin: 01/07/18 08:45 Dose: 5,000 units Metoprolol Tartrate (Lopressor) 12.5 mg PO BID [facility] Last Admin: 01/07/18 09:37 Dose: Not Given Polyethylene Glycol (Miralax) 17 gm PO Q6 [facility] Last Admin: 01/07/18 05:09 Dose: Not Given Rosuvastatin Calcium (Crestor) 2.5 mg PO HS [facility] Last Admin: 01/06/18 22:02 Dose: 2.5 mg - Labs Labs: 01/05/18 10:17 01/05/18 11:40 PT 12.3 SECONDS (9.7-12.2) H 12/25/17 07:15 INR 1.1 12/25/17 07:15 APTT 36 SECONDS (21-34) H 12/22/17 11:04 - Constitutional Appears: Non-toxic, No Acute Distress, Chronically Ill - Head Exam Head Exam: NORMAL INSPECTION, NORMOCEPHALIC - Eye Exam Eye Exam: Normal appearance, PERRL - ENT Exam ENT Exam: Mucous Membranes Moist, Normal Exam - Neck Exam Neck Exam: Full ROM, Normal Inspection - Respiratory Exam Respiratory Exam: Clear to Ausculation Bilateral, NORMAL BREATHING PATTERN - Cardiovascular Exam Cardiovascular Exam: REGULAR RHYTHM, RRR - GI/Abdominal Exam GI & Abdominal Exam: Distended, Soft, Normal Bowel Sounds - Extremities Exam Extremities Exam: Full ROM, Normal Inspection - Back Exam Back Exam: NORMAL INSPECTION - Neurological Exam Neurological Exam: Alert, Awake - Psychiatric Exam Psychiatric exam: Normal Affect, Normal Mood - Skin Skin Exam: Dry, Intact Assessment and Plan (1) Chronic kidney disease Status: Acute (2) Anemia Status: Acute (3) Hypertension Status: Acute (4) Edema Status: Acute (5) CHF (congestive heart failure) Status: Acute - Assessment and Plan (Free Text) Assessment: maintain hd mwf stable from renal standpoint
[2018-01-07] MEDS: Epoetin Alfa 10,000 unit/ml Dialysis IV SCH (14:00)
[2018-01-07 17:37] VITALS: BP 161/81; PULSE 92; TEMP 98.2; O2SAT 97
== END 2018-01-07 22:37 | DRG 264 ==
LOC: C.ER 10:02 → C.9E 11:52 → C.6T 14:53
PROVIDERS: ADMIT Internal Medicine; ATTEND Hospitalist
PROC: 02HV33Z Insertion of Infusion Device into Superior Vena Cava, Percutaneous Approach (ICD-10-PCS; 2017-12-26)
PROC: 5A1D70Z Performance of Urinary Filtration, Intermittent, Less than 6 Hours Per Day (ICD-10-PCS; principal; 2017-12-26 14:45)
PROC: 031C0ZF Bypass Left Radial Artery to Lower Arm Vein, Open Approach (ICD-10-PCS; 2017-12-29)
DX: I13.2 Hypertensive heart and chronic kidney disease with heart failure and with stage 5 chronic kidney disease, or end stage renal disease (principal); N18.6 End stage renal disease; N17.9 Acute kidney failure, unspecified; E78.00 Pure hypercholesterolemia, unspecified; I50.9 Heart failure, unspecified; N28.1 Cyst of kidney, acquired; D64.9 Anemia, unspecified; F03.90 Unspecified dementia, unspecified severity, without behavioral disturbance, psychotic disturbance, mood disturbance, and anxiety; Z99.2 Dependence on renal dialysis; Z66 Do not resuscitate; B19.20 Unspecified viral hepatitis C without hepatic coma; R73.02 Impaired glucose tolerance (oral); N40.0 Benign prostatic hyperplasia without lower urinary tract symptoms